=== PATIENT | female | born 1945 | race Caucasian/White ===

== ENCOUNTER 2017-04-22 12:05 | Inpatient (IN) | payer OTHER, MEDICARE ==
[~2017-04-22] VITALS: Ht 172.7 cm; Wt 109.9 kg
[2017-04-22] VITALS (9 sets, daily range): BP systolic 108–140; BP diastolic 52–83; PULSE 92–152; RESP 16–20; TEMP 98.2–98.3; O2SAT 95–100
[2017-04-22] MEDS ORDERED: SODIUM CHLORIDE 0.9% FLUSH 10 ML FLUSH IV FLUSH PRN ×2 (13:45→15:45)
[2017-04-22] MEDS ORDERED: DILTIAZEM HCL 25 MG/5 ML VIAL IV PUSH ONE (13:45)
[2017-04-22 14:00] LABS: AUTOMATED NEUTROPHIL # 7.1 TH/MM3 (1.8-7.7); BASOPHIL % 0.3 % (0.0-2.0); EOSINOPHIL # 0.2 TH/MM3 (0-0.4); EOSINOPHIL % 2.6 % (0.0-4.0); HEMATOCRIT 24.9 % (35.0-46.0); HEMOGLOBIN 8.8 GM/DL (11.6-15.3); LYMPHOCYTE # 1.1 TH/MM3 (1.0-4.8); MEAN CELL VOLUME 101.4 FL (80.0-100.0); MEAN CORPUSCULAR HGB CONC 35.4 % (32.0-36.0); MEAN PLATELET VOLUME 8.7 FL (7.0-11.0); MONO % 8.2 % (0.0-8.0); MONOCYTE # 0.8 TH/MM3 (0-0.9); NEUT % 76.9 % (16.0-70.0); PLATELET COUNT 218 TH/MM3 (150-450); RED BLOOD COUNT 2.46 MIL/MM3 (4.00-5.30); RED CELL DISTRIBUTION WIDTH 17.6 % (11.6-17.2); WHITE BLOOD COUNT 9.3 TH/MM3 (4.0-11.0)
[2017-04-22 14:10] LABS: INTERNATIONAL NORMALIZED RATIO 3.8 RATIO; PROTHROMBIN TIME - PATIENT 38.2 SEC (9.8-11.6)
[2017-04-22] MEDS ORDERED: NITR1SUB3 SL (14:10)
[2017-04-22] MEDS ORDERED: LISI-519 PO (14:10)
[2017-04-22] MEDS ORDERED: METO50TA PO (14:10)
[2017-04-22] MEDS ORDERED: FURO40TA PO (14:10)
[2017-04-22] MEDS ORDERED: ALPR0.5T3 PO (14:10)
[2017-04-22] MEDS ORDERED: DILT120T PO (14:10)
[2017-04-22] MEDS ORDERED: RISP0.5T2 PO (14:10)
[2017-04-22] MEDS ORDERED: JANT2.5T PO (14:10)
[2017-04-22] MEDS ORDERED: SODI1TAB PO (14:10)
[2017-04-22] MEDS ORDERED: BACT800T5 PO (14:10)
[2017-04-22 14:15] LABS: ALBUMIN 2.9 GM/DL (3.4-5.0); ALT (GPT) 27 U/L (10-53); AST (GOT) 48 U/L (15-37); BLOOD UREA NITROGEN 20 MG/DL (7-18); CALCIUM 8.9 MG/DL (8.5-10.1); CHLORIDE 96 MEQ/L (98-107); CREATININE 1.45 MG/DL (0.50-1.00); GLOMERULAR FILTRATION RATE 36 ML/MIN (>89); GLUCOSE,RANDOM 103 MG/DL (74-106); SODIUM (NA) 132 MEQ/L (136-145)
[2017-04-22] MEDS ORDERED: WARF4TAB51 PO (14:18)
[2017-04-22 14:25] LABS: ALKALINE PHOSPHATASE 117 U/L (45-117); TOTAL BILIRUBIN ADULT 0.8 MG/DL (0.2-1.0); TOTAL PROTEIN 7.7 GM/DL (6.4-8.2); TROPONIN I LESS THAN 0.02 NG/ML (0.02-0.05)
--- NOTE | 2017-04-22 14:37 | RADRPT ---
EXAM DATE/TIME: 04/22/2017 14:05 [place] COMPARISON: No previous studies available for comparison. INDICATIONS : Chest pressure. MEDICAL HISTORY : Carcinoma, breast. Arthritis. Hypertension. A-fib. Pneumonia. SURGICAL HISTORY : Tonsillectomy. Tubal ligation. Hysterectomy. Cervical fusion. Bilateral mastectomy. Clavicle fracture . ENCOUNTER: Initial ACUITY: 2 days PAIN SCORE: 3/10 LOCATION: chest FINDINGS: PA and lateral views of the chest demonstrate the lungs to be symmetrically aerated without evidence of mass, infiltrate or effusion. The cardiomediastinal contours are unremarkable. Osseous structure s are intact. CONCLUSION: No acute disease. Selvin Nicole MD on April 22, 2017 at 14:33 Board Certified Radiologist. This report was verified electronically.
[2017-04-22] MEDS ORDERED: DILTIAZEM HCL 50 MG/10 ML VIAL IV PUSH ONE (14:45)
--- NOTE | 2017-04-22 14:59 | PD ---
HPI . Depression Chief Complaint: Medical Clearance Time Seen by Provider: 13:42 Travel History International Travel<30 days: No Contact w/Intl Traveler<30days: No Traveled to known affect area: No History of Present Illness HPI This patient presented with the chief complaint of depression and hallucinations. She reports the onset of her symptoms 8 months ago when her . However, the patient was found to be in AF with RVR at triage. The patient reports a chronic history of atrial fibrillation and is maintained on Coumadin and a beta jamison. She has no idea when her heart rate might have become elevated. She does state that she was in the hospital at [facility] on 04/20-04/21 with AF with RVR. She states that she signed herself out AMA yesterday as the nurses were talking about "cleaning her out" and "making her disappear and that no one would even know about it." Therefore, I am not sure how reliable this patient's history is. I will attempt to obtain her old records from [facility]. The patient reports no weakness or dizziness. She has no crushing chest pain. She has no shortness of breath. PFSH Past Medical History Arthritis: Yes Atrial Fibrillation: Yes Anxiety: Yes Depression: Yes Cancer: Yes (BREAST) Diminished Hearing: No Hypertension: Yes Insomnia: Yes Pneumonia: Yes Tetanus Vaccination: < 5 Years Influenza Vaccination: Yes Tubal Ligation: Yes Past Surgical History Hysterectomy: Yes Oral Surgery: Yes Tonsillectomy: Yes Other Surgery: Yes (BILATERAL MASTECTOMY, L CLAVICLE SX) Social History Alcohol Use: Yes (every other day) Tobacco Use: No Substance Use: No Allergies-Medications (Allergen,Severity, Reaction): Coded Allergies: No Known Allergies (Unverified , 04/22/17) Reported Meds & Prescriptions Reported Meds & Active Scripts Active Reported Warfarin 2 Mg Tab 2 Mg PO DAILY Alprazolam 0.5 Mg Tab 0.5 Mg PO Q8H PRN Metoprolol Tartrate 50 Mg Tab 50 Mg PO BID Furosemide 40 Mg Tab 40 Mg PO DAILY Nitroglycerin SL (Nitroglycerin) 0.4 Mg Subl 0.4 Mg SL DIRECTED PRN ONE TABLET UNDER THE TONGUE NEEDED FOR CHEST PAIN, MAY REPEAT EVERY FIVE MINUTES FOR A TOTAL OF 3 DOSES OR CALL 911 IF NO RELIEF Risperidone 0.5 Mg Tab 0.5 Mg PO Q12HR Emmanueltoven (Warfarin) 2.5 Mg Tab 2.5 Mg PO DAILY Lisinopril 5 Mg Tab 5 Mg PO DAILY Sodium Chloride 1 Gram Tab 1 Gm PO DAILY Bactrim DS (Sulfamethoxazole-Trimethoprim) 800-160 Mg Tab 1 Tab PO BID Diltiazem (Diltiazem HCl) 120 Mg Tab 120 Mg PO HS Review of Systems Except as stated in HPI: all other systems reviewed are Neg General / Constitutional: Positive: Other (fatigue), No: Fever, Chills HENT: No: Lightheadedness Cardiovascular: No: Chest Pain or Discomfort Respiratory: No: Shortness of Breath Gastrointestinal: Positive: Diarrhea (2 loose stools in the last 24 hours), No : Nausea, Vomiting Genitourinary: No: Urgency, Frequency, Dysuria Psychiatric: Positive: Depression Physical Exam Narrative GENERAL: Awake and alert. She does not appear to be in any acute distress. SKIN: warm/dry. Good color and turgor. HEAD: Normocephalic. Atraumatic. EYES: Pupils equal and round. No scleral icterus. No injection or drainage. ENT: No nasal bleeding or discharge. Mucous membranes pink and moist. NECK: Trachea midline. Full range of motion without pain.. CARDIOVASCULAR: AF with RVR. Rate about 140. RESPIRATORY: No accessory muscle use. Clear to auscultation. Breath sounds equal bilaterally. GASTROINTESTINAL: Abdomen soft. Nontender. Bowel sounds present. Nondistended. MUSCULOSKELETAL: No obvious deformities. NEUROLOGICAL: Awake and alert. No obvious cranial nerve deficits. Motor grossly within normal limits. Normal speech. PSYCHIATRIC: Appropriate mood and affect; insight and judgment normal. Data Data Last Documented VS Vital Signs Date Time Temp Pulse Resp B/P (MAP) Pulse Ox O2 Delivery O2 Flow Rate FiO2 04/22/17 15:13 105 111/55 (73) 04/22/17 15:08 20 100 Room Air 04/22/17 12:12 98.2 Orders Orders Electrocardiogram (04/22/17 12:48) Ckmb (Isoenzyme) Profile (04/22/17 12:48) Complete Blood Count With Diff (04/22/17 12:48) Comprehensive Metabolic Panel (04/22/17 12:48) Prothrombin Time / Inr (Pt) (04/22/17 12:48) Act Partial Throm Time (Ptt) (04/22/17 12:48) Troponin I (04/22/17 12:48) Chest, Pa & Lat (04/22/17 12:48) Thyroid Stimulating Hormone (04/22/17 12:48) Psych Screen (04/22/17 12:48) Urinalysis - C+S If Indicated (04/22/17 12:48) Ecg Monitoring (04/22/17 13:42) Blood Pressure (04/22/17 13:42) Iv Access Insert/Monitor (04/22/17 13:42) Oximetry (04/22/17 13:42) Vital Signs (04/22/17 13:42) Diltiazem Inj (Cardizem Inj) (04/22/17 13:45) Sodium Chloride 0.9% Flush (Ns Flush) (04/22/17 13:45) Diltiazem Inj (Cardizem Inj) (04/22/17 14:30) Diltiazem Inj (Cardizem Inj) (04/22/17 14:45) Sodium Chlor 0.9% 1000 Ml Inj (Ns 1000 M (04/22/17 15:00) Admit Order (Ed Use Only) (04/22/17 ) Admit Order (Ed Use Only) (04/22/17 ) Plugger / Telemetry VALENCIA.Q8H (04/22/17 15:31) Vital Signs (Adult) Q4H (04/22/17 15:31) Diet Heart Healthy (04/22/17 Dinner) Activity Oob With Assistance (04/22/17 15:31) Notify Dr: Other (04/22/17 15:31) Labs Laboratory Tests Test 04/22/17 13:13 White Blood Count 9.3 TH/MM3 Red Blood Count 2.46 MIL/MM3 Hemoglobin 8.8 GM/DL Hematocrit 24.9 % Mean Corpuscular Volume 101.4 FL Mean Corpuscular Hemoglobin 36.0 PG Mean Corpuscular Hemoglobin Concent 35.4 % Red Cell Distribution Width 17.6 % Platelet Count 218 TH/MM3 Mean Platelet Volume 8.7 FL Neutrophils (%) (Auto) 76.9 % Lymphocytes (%) (Auto) 12.0 % Monocytes (%) (Auto) 8.2 % Eosinophils (%) (Auto) 2.6 % Basophils (%) (Auto) 0.3 % Neutrophils # (Auto) 7.1 TH/MM3 Lymphocytes # (Auto) 1.1 TH/MM3 Monocytes # (Auto) 0.8 TH/MM3 Eosinophils # (Auto) 0.2 TH/MM3 Basophils # (Auto) 0.0 TH/MM3 CBC Comment DIFF FINAL Differential Comment Prothrombin Time 38.2 SEC Prothromb Time International Ratio 3.8 RATIO Activated Partial Thromboplast Time 49.5 SEC Blood Urea Nitrogen 20 MG/DL Creatinine 1.45 MG/DL Random Glucose 103 MG/DL Total Protein 7.7 GM/DL Albumin 2.9 GM/DL Calcium Level 8.9 MG/DL Alkaline Phosphatase 117 U/L Aspartate Amino Transf (AST/SGOT) 48 U/L Alanine Aminotransferase (ALT/SGPT) 27 U/L Total Bilirubin 0.8 MG/DL Sodium Level 132 MEQ/L Potassium Level 3.7 MEQ/L Chloride Level 96 MEQ/L Carbon Dioxide Level 26.0 MEQ/L Anion Gap 10 MEQ/L Estimat Glomerular Filtration Rate 36 ML/MIN Total Creatine Kinase 55 U/L Troponin I LESS THAN 0.02 NG/ML Thyroid Stimulating Hormone 3rd Gen 4.850 uIU/ML MDM Medical Decision Making Medical Screen Exam Complete: Yes Emergency Medical Condition: Yes Interpretation(s) EKG shows atrial fibrillation with a ventricular response of 144. Differential Diagnosis Differential diagnosis of tachycardia includes but is not limited to PSVT, atrial fibrillation with a rapid ventricular response, sinus tachycardia (due to hypovolemia, anemia, thyrotoxicosis, PE) Narrative Course This patient presents with a chief complaint of depression. However, she was found to be in AF with RVR at triage. The patient was placed on the monitor. IV access was obtained. She was given a Cardizem bolus at 0.25 mg/kg. Heart rate slowed to about 100. However, her heart rate later to about 1:30. A second bolus of Cardizem at 0.35 mg/kg was ordered along with a Cardizem drip. CXR>>: No acute disease. CBC & BMP Diagram 04/22/17 13:13 Total Protein 7.7, Albumin 2.9 L, Calcium Level 8.9, Alkaline Phosphatase 117, Aspartate Amino Transf (AST/SGOT) 48 H, Alanine Aminotransferase (ALT/SGPT) 27, Total Bilirubin 0.8 The patient's previous GFR in January was 60. GFR today is 36. It looks like it is probably all prerenal. She'll be treated with IV fluids. trop < 0.02 BNP 326 This patient needs to be admitted for both IV hydration and for rate control of her AF. Critical Care Narrative Aggregate critical care time was 40 minutes. Time to perform other separately billable procedures was not included in the critical care time. My time did not include minutes spent treating any other patients simultaneously or on activities that did not directly contribute to the patient's treatment. The services I provided to this patient were to treat and/or prevent clinically significant deterioration due to atrial fibrillation with rapid ventricular response I provided critical care services requiring my management, as noted below: Chart data review, documentation time, medication orders and management, vital sign assessments/reviewing monitor data, ordering and reviewing lab tests, ordering and interpreting/reviewing x-rays and diagnostic studies, care of the patient and discussion of the patient with the admitting physicians HemaPrompt Point of Care Internal Pos. & Neg. Controls: Passed Fecal Specimen Occult Blood: Negative Physician Communication Physician Communication Dr. Vickers Diagnosis Primary Impression: Atrial fibrillation with rapid ventricular response Additional Impressions: Acute renal failure Qualified Codes: N17.9 - Acute kidney failure, unspecified Anemia Qualified Codes: D64.9 - Anemia, unspecified Admitting Information Admitting Physician Requests: Admit Condition: Stable Shira Louis MD Apr 22, 2017 14:59
[2017-04-22] MEDS ORDERED: SODIUM CHLOR 0.9% 1000 ML INJ 1,000 ML IV ONE (15:00)
--- NOTE | 2017-04-22 15:41 | HHI.HP ---
[facility] Unknown Admission Diagnosis AF with RVR Diagnoses: Chief Complaint: anxiety and hallucinations Travel History International Travel<30 Days: No Contact w/Intl Traveler <30 Da: No Traveled to Known Affected Are: No History of Present Illness This is a 71-year-old female, , lives by herself, with past medical history significant for anxiety disorder, hypertension and atrial fibrillation being admitted for anxiety and hallucinations found to be in atrial fibrillation. Patient initially presented at [facility] 2 days ago, she left AGAINST MEDICAL ADVICE yesterday because of hallucinations and paranoia that the staff wanted to harm her. This morning, when she woke up, she was not feeling well, i.e. she feels very anxious and having hallucinations about a TV program happening in real life hence she decided to come to the hospital. She denies any fever, chills, dysuria, frequency, urgency nausea, vomiting, diarrhea, abdominal pain, chest pain, palpitations or shortness of breath. She further denies any bleeding, hematochezia, or melena. Her last colonoscopy was 3 years ago and was allegedly normal. She denies having chronic kidney disease. Review of Systems Except as stated in HPI: all other systems reviewed are Neg Past Family Social History Past Medical History Atrial fibrillation Gen. anxiety disorder Hypertension UTI-3 weeks ago Past Surgical History Hysterectomy LUmpectomy Radical Mastectomy Disc surgery L shoulder surgery Reported Medications Warfarin 2 Mg Tab 2 Mg PO DAILY Alprazolam 0.5 Mg Tab 0.5 Mg PO Q8H PRN Metoprolol Tartrate 50 Mg Tab 50 Mg PO BID Furosemide 40 Mg Tab 40 Mg PO DAILY Nitroglycerin SL (Nitroglycerin) 0.4 Mg Subl 0.4 Mg SL DIRECTED PRN ONE TABLET UNDER THE TONGUE NEEDED FOR CHEST PAIN, MAY REPEAT EVERY FIVE MINUTES FOR A TOTAL OF 3 DOSES OR CALL 911 IF NO RELIEF Risperidone 0.5 Mg Tab 0.5 Mg PO Q12HR Jantoven (Warfarin) 2.5 Mg Tab 2.5 Mg PO DAILY Lisinopril 5 Mg Tab 5 Mg PO DAILY Sodium Chloride 1 Gram Tab 1 Gm PO DAILY Bactrim DS (Sulfamethoxazole-Trimethoprim) 800-160 Mg Tab 1 Tab PO BID Diltiazem (Diltiazem HCl) 120 Mg Tab 120 Mg PO HS Allergies: Coded Allergies: No Known Allergies (Unverified , 04/22/17) Family History Both grandparents, dad, brother have heart problems and DM Social History Drinks occasionally, 4 beers every 3-6 days. Non-smoker. Physical Exam Vital Signs Vital Signs Date Time Temp Pulse Resp B/P (MAP) Pulse Ox O2 Delivery O2 Flow Rate FiO2 04/22/17 15:13 105 111/55 (73) 04/22/17 15:08 122 20 112/61 (78) 100 Room Air 04/22/17 13:54 103 19 123/78 (93) 98 Room Air 04/22/17 13:47 156 04/22/17 13:47 100 Room Air 04/22/17 13:47 145 140/83 (102) 04/22/17 13:40 152 18 140/83 (102) 100 Room Air 04/22/17 12:12 98.2 121 18 108/52 (70) 95 Physical Exam GENERAL: Not in acute distress, well-nourished. HEAD: Atraumatic. Normocephalic. No temporal or scalp tenderness. EYES: PERRL, full EOMs, no jaundice, nonicteric, pink conjunctivae without injection, moist mucosa NECK: Trachea midline, no mass, no obvious thyromegaly. No JVD or lymphadenopathy. CARDIOVASCULAR: Tachycardic, irregular rhythm, no murmurs appreciated, no gallops, or rubs. RESPIRATORY: Clear to auscultation with normal respiratory effort. Breath sounds equal bilaterally. No use of accessory muscles of respiration. GASTROINTESTINAL: Abdomen soft, normal bowel sounds, non-tender, nondistended. No hepato-splenomegaly or palpable mass. No guarding. DARIEL and exam deferred. MUSCULOSKELETAL: Extremities without clubbing, cyanosis, 1+ bilateral, pitting edema, no joint tendernes. No calf tenderness. Distal pulses intact, 2+ bilaterally. INTEGUMENTARY: Warm and dry, no rash of generalized distribution. NEUROLOGICAL: Awake, alert, oriented 3. No obvious cranial nerve deficits. Moves all 4 extremities, muscle strength testing 5 over 5. Motor and sensory grossly within normal limits. .Supple neck, no meningeal signs. Grossly negative cerebellar examination. No focal neurologic deficits. PSYCHIATRIC: Normal mood, appropriate affect. Feels anxious, presently no hallucinations. Laboratory Laboratory Tests Test 04/22/17 13:13 White Blood Count 9.3 Red Blood Count 2.46 Hemoglobin 8.8 Hematocrit 24.9 Mean Corpuscular Volume 101.4 Mean Corpuscular Hemoglobin 36.0 Mean Corpuscular Hemoglobin Concent 35.4 Red Cell Distribution Width 17.6 Platelet Count 218 Mean Platelet Volume 8.7 Neutrophils (%) (Auto) 76.9 Lymphocytes (%) (Auto) 12.0 Monocytes (%) (Auto) 8.2 Eosinophils (%) (Auto) 2.6 Basophils (%) (Auto) 0.3 Neutrophils # (Auto) 7.1 Lymphocytes # (Auto) 1.1 Monocytes # (Auto) 0.8 Eosinophils # (Auto) 0.2 Basophils # (Auto) 0.0 CBC Comment DIFF FINAL Differential Comment Prothrombin Time 38.2 Prothromb Time International Ratio 3.8 Activated Partial Thromboplast Time 49.5 Blood Urea Nitrogen 20 Creatinine 1.45 Random Glucose 103 Total Protein 7.7 Albumin 2.9 Calcium Level 8.9 Alkaline Phosphatase 117 Aspartate Amino Transf (AST/SGOT) 48 Alanine Aminotransferase (ALT/SGPT) 27 Total Bilirubin 0.8 Sodium Level 132 Potassium Level 3.7 Chloride Level 96 Carbon Dioxide Level 26.0 Anion Gap 10 Estimat Glomerular Filtration Rate 36 Total Creatine Kinase 55 Troponin I LESS THAN 0.02 Thyroid Stimulating Hormone 3rd Gen 4.850 Result Diagram: 04/22/17 1313 04/22/17 1313 Imaging Last Impressions Chest X-Ray 04/22/17 1248 Signed Impressions: Service Date/Time: Saturday, April 22, 2017 14:05 - CONCLUSION: No acute disease. Selvin Nicole MD [place] VTE Risk Assessment Caprini VTE Risk Assessment: Mod/High Risk (score >= 2) VTE Pharm Contraindication: Coagulopathy,INR elevated Caprini Risk Assessment Model Point Value = 1 Point Value = 2 Point Value = 3 Point Value = 5 Age 41-60 Minor surgery BMI > 25 kg/m2 Swollen legs Varicose veins or History of unexplained or recurrent spontaneous Oral contraceptives or hormone replacement Sepsis (< 1 month) Serious lung disease, including pneumonia (< 1 month) Abnormal pulmonary function Acute myocardial infarction Congestive heart failure (< 1 month) History of inflammatory bowel disease Medical patient at bed rest Age 61-74 Arthroscopic surgery Major open surgery (> 45 min) Laparoscopic surgery (> 45 min) Malignancy Confined to bed (> 72 hours) Immobilizing plaster cast Central venous access Age >= 75 History of VTE Family history of VTE Factor V Leiden Prothrombin [id number] Lupus anticoagulant Anticardiolipin antibodies Elevated serum homocysteine Heparin-induced thrombocytopenia Other congenital or acquired thrombophilia Stroke (< 1 month) Elective arthroplasty Hip, pelvis, or leg fracture Acute spinal cord injury (< 1 month) Prophylaxis Regimen Total Risk Factor Score Risk Level Prophylaxis Regimen 0-1 Low Early ambulation 2 Moderate Order ONE of the following: *Sequential Compression Device (SCD) *Heparin 5000 units SQ BID 3-4 Higher Order ONE of the following medications: *Heparin 5000 units SQ TID *Enoxaparin/Lovenox 40 mg SQ daily (WT < 150 kg, CrCl > 30 mL/min) *Enoxaparin/Lovenox 30 mg SQ daily (WT < 150 kg, CrCl > 10-29 mL/min) *Enoxaparin/Lovenox 30 mg SQ BID (WT < 150 kg, CrCl > 30 mL/min) AND/OR *Sequential Compression Device (SCD) 5 or more Highest Order ONE of the following medications: *Heparin 5000 units SQ TID (Preferred with Epidurals) *Enoxaparin/Lovenox 40 mg SQ daily (WT < 150 kg, CrCl > 30 mL/min) *Enoxaparin/Lovenox 30 mg SQ daily (WT < 150 kg, CrCl > 10-29 mL/min) *Enoxaparin/Lovenox 30 mg SQ BID (WT < 150 kg, CrCl > 30 mL/min) AND *Sequential Compression Device (SCD) Assessment and Plan Problem List: (1) Atrial fibrillation with rapid ventricular response ICD Code: I48.91 - Unspecified atrial fibrillation Status: Acute (2) Anemia ICD Code: D64.9 - Anemia, unspecified Status: Acute (3) Acute renal failure ICD Code: N17.9 - Acute kidney failure, unspecified Status: Acute Assessment and Plan This is a 71-year-old female with history of atrial fibrillation presenting with anxiety/hallucinations, found to be in atrial fibrillation with RVR Atrial fibrillation with RVR-after 2 boluses of Cardizem IV, no response, start Cardizem drip. Restart metoprolol and Cardizem per home dose. Hold Coumadin for now given INR. Possible etiology may be dehydration versus anemia. TSH is elevated, check free T3 and free T4. Patient not in heart failure. Continue serial troponins and EKG. Hypertension-controlled, restart metoprolol and Cardizem, hold lisinopril for now given elevated creatinine Acute renal failure-could be prerenal, previous GFR 60 in January 2017, presently in the 30s. Received 1 L of fluids, we'll continue 1 more liter. Recheck BMP tomorrow. Check urinalysis. Hold Lasix and lisinopril Hallucinations-was allegedly told she has UTI in the past 3 weeks, presently no urinary symptoms, check urinalysis. No antibiotics for now, no leukocytosis. Continue her risperidone and Xanax for now. Anemia-hemoglobin is 10 in January 2017, last colonoscopy was 3 years ago, recheck CBC, if with significant drop, may need transfusion. Consult GI if with further drop. Otherwise if hemoglobin remains stable, workup can be done as outpatient if with time the outpatient follow-up. Per patient, she has advanced directives, DNR/DNI Per patient, she lives by herself, ambulatory. No anticipated needs for discharge for now Code Status DNR/DNI Physician Certification 2 Midnight Certification Type: Admission for Inpatient Services Order for Inpatient Services The services are ordered in accordance with Medicare regulations or non- Medicare payer requirements, as applicable. In the case of services not specified as inpatient-only, they are appropriately provided as inpatient services in accordance with the 2-midnight benchmark. Estimated LOS (days): 2 days is the estimated time the patient will need to remain in the hospital, assuming treatment plan goals are met and no additional complications. Post-Hospital Plan: Home Problem Qualifiers (1) Anemia: Qualified Codes: D64.9 - Anemia, unspecified (2) Acute renal failure: Qualified Codes: N17.9 - Acute kidney failure, unspecified Shelia Vickers MD Apr 22, 2017 15:41
[2017-04-22] MEDS ORDERED: ACETAMINOPHEN 325 MG TAB PO PRN (15:45)
[2017-04-22] MEDS ORDERED: SENNOSIDES 8.6 MG TAB PO PRN (15:45)
[2017-04-22] MEDS ORDERED: LACTULOSE SYRUP 20 GM/30 ML CUP PO PRN (15:45)
[2017-04-22] MEDS ORDERED: BISACODYL 10 MG SUPP RECTAL PRN (15:45)
[2017-04-22] MEDS ORDERED: NALOXONE HCL 0.4 MG/ML AMP IV PUSH PRN (15:45)
[2017-04-22] MEDS ORDERED: MAGNESIUM HYDROXIDE SUSP 30 ML CUP PO PRN (15:45)
[2017-04-22] MEDS ORDERED: NITROGLYCERIN 0.4 MG SL 25 TABS/BTL SL PRN (16:00)
[2017-04-22] MEDS: DILTIAZEM INJ 125 MG in SODIUM CHLORIDE 0.9% INJ 100 ML IV PRN (16:08)
--- NOTE | 2017-04-22 16:09 | EKG ---
Date Performed: 04/22/2017 Time Performed: 13:22:59 PTAGE: 71 years EKG: ATRIAL FIBRILLATION WITH RAPID VENTRICULAR RESPONSE NONSPECIFIC ST & T-WAVE ABNORMALITY ABN ORMAL RHYTHM ECG PREVIOUS TRACING : 10/11/1996 13.40 Compared to the previous tracing SR no longer present DOCTOR: Rosalba Saenz Interpretating Date/Time 04/22/2017 16:07:22
[2017-04-22] MEDS: METOPROLOL TARTRATE 50 MG TAB PO SCH (17:15)
[2017-04-22] MEDS: SODIUM CHLOR 0.45% 1000 ML INJ 1,000 ML IV SCH (17:15)
[2017-04-22] MEDS: SODIUM CHLORIDE 0.9% FLUSH 10 ML FLUSH IV FLUSH SCH (21:00)
[2017-04-22] MEDS ORDERED: NON-FORMULARY DRUG (Diltiazem 120 MG) PO SCH (21:00)
[2017-04-22] MEDS ORDERED: METOPROLOL TARTRATE 50 MG TAB PO SCH (21:00)
[2017-04-22] MEDS: DOCUSATE SODIUM 50 MG/SENNA 8.6 MG TAB PO SCH (21:00)
[2017-04-22] MEDS: risperiDONE 0.5 MG TAB PO SCH (21:26)
[2017-04-22] MEDS: ALPRAZolam 0.5 MG TAB PO PRN (21:34)
[2017-04-22] MEDS: LACTIC ACID (AMMONIUM LACTATE) 12% LOTION 225 GM BTL TOPICAL SCH (22:02)
[2017-04-22] MEDS: DILTIAZEM-CD 120 MG CAP ER PO SCH (22:06)
[2017-04-22 23:31] LABS: MAGNESIUM 1.5 MG/DL (1.5-2.5)
[2017-04-22 23:40] LABS: FREE T3 1.56 PG/ML (2.18-3.98); FREE T4 1.12 NG/DL (0.76-1.46); TROPONIN I LESS THAN 0.02 NG/ML (0.02-0.05)
[2017-04-23] VITALS (11 sets, daily range): BP systolic 112–126; BP diastolic 56–74; PULSE 88–118; RESP 16–20; TEMP 97.2–98.2; O2SAT 94–100
[2017-04-23 00:30] LABS: BACTERIA, URINE RARE /hpf; BILIRUBIN, URINE NEG (NEG); BLOOD, URINE SMALL (NEG); GLUCOSE,URINE NEG (NEG); KETONE, URINE NEG (NEG); NITRITE,URINE NEG (NEG); PH, URINE 5.5 (5.0-8.5); RENAL EPITHELIAL CELLS 1 /hpf; SQUAMOUS EPITHELIAL CELL URINE <1 /hpf (0-5); URINE COLOR YELLOW (YELLW/STRAW); URINE LEUKOCYTE ESTERASE LARGE (NEG); WHITE BLOOD CELL CLUMPS MANY
[2017-04-23] MEDS: DILTIAZEM INJ 125 MG in SODIUM CHLORIDE 0.9% INJ 100 ML IV PRN ×2 (04:43→16:27)
[2017-04-23] MEDS: risperiDONE 0.5 MG TAB PO SCH ×2 (08:58→20:25)
[2017-04-23] MEDS: SODIUM CHLORIDE 0.9% FLUSH 10 ML FLUSH IV FLUSH SCH ×2 (08:58→20:25)
[2017-04-23] MEDS: METOPROLOL TARTRATE 50 MG TAB PO SCH ×2 (08:58→20:25)
[2017-04-23] MEDS: DOCUSATE SODIUM 50 MG/SENNA 8.6 MG TAB PO SCH ×2 (08:58→20:27)
[2017-04-23] MEDS: SODIUM CHLORIDE 1 GRAM TAB PO SCH (08:58)
[2017-04-23] MEDS: LACTIC ACID (AMMONIUM LACTATE) 12% LOTION 225 GM BTL TOPICAL SCH ×2 (08:59→20:26)
[2017-04-23] MEDS: SODIUM CHLOR 0.45% 1000 ML INJ 1,000 ML IV SCH ×2 (08:59→20:26)
[2017-04-23 10:22] LABS: INTERNATIONAL NORMALIZED RATIO 2.5 RATIO; PROTHROMBIN TIME - PATIENT 25.4 SEC (9.8-11.6)
[2017-04-23 10:27] LABS: AUTOMATED NEUTROPHIL # 6.1 TH/MM3 (1.8-7.7); BASOPHIL % 0.3 % (0.0-2.0); EOSINOPHIL # 0.1 TH/MM3 (0-0.4); EOSINOPHIL % 0.9 % (0.0-4.0); HEMATOCRIT 21.4 % (35.0-46.0); HEMOGLOBIN 7.5 GM/DL (11.6-15.3); LYMPH % 10.4 % (9.0-44.0); LYMPHOCYTE # 0.8 TH/MM3 (1.0-4.8); MEAN CELL VOLUME 103.3 FL (80.0-100.0); MEAN CORPUSCULAR HEMOGLOBIN 36.1 PG (27.0-34.0); MEAN CORPUSCULAR HGB CONC 34.9 % (32.0-36.0); MEAN PLATELET VOLUME 8.6 FL (7.0-11.0); MONO % 9.3 % (0.0-8.0); MONOCYTE # 0.7 TH/MM3 (0-0.9); NEUT % 79.1 % (16.0-70.0); PLATELET COUNT 162 TH/MM3 (150-450); RED BLOOD COUNT 2.07 MIL/MM3 (4.00-5.30); RED CELL DISTRIBUTION WIDTH 17.8 % (11.6-17.2); WHITE BLOOD COUNT 7.7 TH/MM3 (4.0-11.0)
[2017-04-23 10:41] LABS: BICARBONATE 23.1 MEQ/L (21.0-32.0); BLOOD UREA NITROGEN 18 MG/DL (7-18); CALCIUM 8.3 MG/DL (8.5-10.1); CHLORIDE 101 MEQ/L (98-107); CREATININE 0.98 MG/DL (0.50-1.00); GLOMERULAR FILTRATION RATE 56 ML/MIN (>89); GLUCOSE,RANDOM 120 MG/DL (74-106); SODIUM (NA) 135 MEQ/L (136-145)
[2017-04-23 10:45] LABS: TROPONIN I LESS THAN 0.02 NG/ML (0.02-0.05)
[2017-04-23 12:23] LABS: IRON (FE) 68 MCG/DL (50-170)
[2017-04-23 12:48] LABS: % SATURATION IRON PROFILE 40.1 % (20-50); FERRITIN 555 NG/ML (8-252); FOLATE 5.9 NG/ML (3.1-17.5); TOTAL IRON BINDING CAPACITY 169 MCG/DL (250-450)
[2017-04-23] MEDS ORDERED: ACETAMINOPHEN 325 MG TAB PO PRN (15:30)
[2017-04-23] MEDS ORDERED: FUROSEMIDE 20 MG/2 ML VIAL IV PUSH ONE (15:30)
[2017-04-23] MEDS ORDERED: SODIUM CHLOR 0.9% 250 ML INJ 250 ML IV ONE (15:30)
[2017-04-23] MEDS ORDERED: diphenhydrAMINE HCL 25 MG CAP PO PRN (15:30)
--- NOTE | 2017-04-23 16:03 | PD.CONS ---
HPI History of Present Illness This is a 71 year old lady with AF on coumadin who presented with hallucinations and was found to be in AF. She says she felt like her heart was beating really fast. Per EMR she originally was admitted to [facility] 2 d ago and left AMA. GI has been consulted for anemia. She has been feeling weak for at least a month. SHe admitted intermittent dark stools to the attending but denied to me. She did admit scant bright red blood on wipe after straining with a BM. She had a colonoscopy 8 y ago [facility] and says benign polyps were found. Never had EGD. Denies prior hx GIB. (Sihra Cruz) PFSH Past Medical History Atrial fibrillation Gen. anxiety disorder Hypertension UTI-3 weeks ago Past Surgical History Hysterectomy LUmpectomy Radical Mastectomy Disc surgery L shoulder surgery (Shira Cruz) Coded Allergies: No Known Allergies (Unverified , 04/22/17) Family History Both grandparents, dad, brother have heart problems and DM Social History Drinks occasionally, 4 beers or brandies every 3-6 days. Non-smoker. (Shira Cruz) Review of Systems Constitutional: COMPLAINS OF: Fatigue Endocrine: DENIES: Polydipsia Eyes: DENIES: Blurred vision Ears, nose, mouth, throat: DENIES: Hearing loss Respiratory: DENIES: Cough Cardiovascular: DENIES: Chest pain Gastrointestinal: DENIES: Abdominal pain, Black stools, Bloody stools, Constipation, Diarrhea, Nausea, Vomiting, Hematemesis Genitourinary: DENIES: Hematuria Musculoskeletal: DENIES: Joint Swelling Integumentary: DENIES: Abnormal pigmentation Hematologic/lymphatic: COMPLAINS OF: Bruising Immunologic/allergic: DENIES: Eczema Neurologic: DENIES: Abnormal gait Psychiatric: COMPLAINS OF: Confusion (Shira Cruz) GI Exam Vitals I&O Vital Signs Date Time Temp Pulse Resp B/P (MAP) Pulse Ox O2 Delivery O2 Flow Rate FiO2 04/23/17 12:00 97.9 92 19 112/57 (75) 96 04/23/17 08:00 97.7 105 19 116/65 (82) 98 04/23/17 08:00 115 04/23/17 04:44 98.1 106 20 114/64 (81) 96 04/23/17 04:43 106 114/64 04/23/17 04:00 112 04/23/17 00:00 98.2 108 18 121/74 (90) 97 04/23/17 00:00 118 04/22/17 20:00 92 04/22/17 20:00 98.3 100 16 110/59 (76) 100 04/22/17 18:46 04/22/17 17:45 115 18 138/66 (90) 100 Room Air 04/22/17 17:05 127 20 111/62 (78) 100 Room Air 04/22/17 16:08 145 120/58 I/O 04/22/17 04/22/17 04/22/17 04/23/17 04/23/17 04/23/17 07:00 15:00 23:00 07:00 15:00 23:00 Intake Total 1000 ml 125 ml Output Total 1050 ml Balance 1000 ml -925 ml Intake IV Total 1000 ml 125 ml Output Urine Total 1050 ml Imaging Last Impressions Chest X-Ray 04/22/17 1248 Signed Impressions: Service Date/Time: Saturday, April 22, 2017 14:05 - CONCLUSION: No acute disease. Selvin Nicole MD Laboratory Test 04/22/17 17:46 04/22/17 23:01 04/23/17 00:15 04/23/17 08:26 Troponin I LESS THAN 0.02 NG/ML LESS THAN 0.02 NG/ML LESS THAN 0.02 NG/ML Magnesium Level 1.5 MG/DL Free Thyroxine 1.12 NG/DL Free Triiodothyronine (T3) pg/dL 1.56 PG/ML Urine Color YELLOW Urine Turbidity CLOUDY Urine pH 5.5 Urine Specific [place] 1.015 Urine Protein 30 mg/dL Urine Glucose (UA) NEG mg/dL Urine Ketones NEG mg/dL Urine Occult Blood SMALL Urine Nitrite NEG Urine Bilirubin NEG Urine Urobilinogen LESS THAN 2.0 MG/DL Urine Leukocyte Esterase LARGE Urine RBC 6 /hpf Urine WBC /hpf Urine WBC Clumps MANY Urine Squamous Epithelial Cells <1 /hpf Urine Renal Epithelial Cells 1 /hpf Urine Bacteria RARE /hpf Microscopic Urinalysis Comment CULTURE INDICATED White Blood Count 7.7 TH/MM3 Red Blood Count 2.07 MIL/MM3 Hemoglobin 7.5 GM/DL Hematocrit 21.4 % Mean Corpuscular Volume 103.3 FL Mean Corpuscular Hemoglobin 36.1 PG Mean Corpuscular Hemoglobin Concent 34.9 % Red Cell Distribution Width 17.8 % Platelet Count 162 TH/MM3 Mean Platelet Volume 8.6 FL Neutrophils (%) (Auto) 79.1 % Lymphocytes (%) (Auto) 10.4 % Monocytes (%) (Auto) 9.3 % Eosinophils (%) (Auto) 0.9 % Basophils (%) (Auto) 0.3 % Neutrophils # (Auto) 6.1 TH/MM3 Lymphocytes # (Auto) 0.8 TH/MM3 Monocytes # (Auto) 0.7 TH/MM3 Eosinophils # (Auto) 0.1 TH/MM3 Basophils # (Auto) 0.0 TH/MM3 CBC Comment DIFF FINAL Differential Comment Prothrombin Time 25.4 SEC Prothromb Time International Ratio 2.5 RATIO Blood Urea Nitrogen 18 MG/DL Creatinine 0.98 MG/DL Random Glucose 120 MG/DL Calcium Level 8.3 MG/DL Sodium Level 135 MEQ/L Potassium Level 3.7 MEQ/L Chloride Level 101 MEQ/L Carbon Dioxide Level 23.1 MEQ/L Anion Gap 11 MEQ/L Estimat Glomerular Filtration Rate 56 ML/MIN Iron Level 68 MCG/DL Total Iron Binding Capacity 169 MCG/DL Percent Iron Saturation 40.1 % Ferritin 555 NG/ML Vitamin B12 Level 396 PG/ML Folate 5.9 NG/ML Date/Time Source Procedure Growth Status 04/23/17 00:15 Urine Clean Catch Urine Culture Pending Received Physical Examination HEENT: PERRL; normocephalic; atraumatic; no jaundice. CHEST: coarse CARDIAC: irr HR ABDOMEN: Soft, nondistended, nontender; no hepatosplenomegaly; bowel sounds are present in all four quadrants. EXTREMITIES: No clubbing, cyanosis, or edema. SKIN: Normal; no rash; no jaundice. 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 8.8 on presentation, dropped to 7.5. on 01/2017 her hgb was 10.5 last colonoscopy 8 y ago, benign polyps found. Never had EGD. on coumadin for AF - ARF, AF, hallucinations per primary PLAN - EGD and colonoscopy friday - clear liquids - obtain consent - NPO after MN night - hold coumadin - d/w primary - monitor HH - transfuse if needed - further recs to follow depending on results above This pt seen by myself and DR Pabon and this note is written on her behalf (Shira Cruz) Physician Comments seen, examined agree with above consider hematology consult abdominal us transfuse prn (Alaina Pabon MD) Shira Cruz Apr 23, 2017 16:03 Alaina Pabon MD Apr 23, 2017 18:53
--- NOTE | 2017-04-23 19:44 | HHI.PR ---
Subjective Remarks Deferred entry - patient seen at 1500 hrs. Patient states has had dark stools on and off for some time. Denies current melena or hematochezia. Denies abdominal pain nausea or vomiting. Objective Vitals Vital Signs Date Time Temp Pulse Resp B/P (MAP) Pulse Ox O2 Delivery O2 Flow Rate FiO2 04/23/17 16:27 106 112/57 04/23/17 16:00 97.7 90 18 116/58 (77) 98 04/23/17 16:00 99 04/23/17 12:00 102 04/23/17 12:00 97.9 92 19 112/57 (75) 96 04/23/17 08:00 97.7 105 19 116/65 (82) 98 04/23/17 08:00 115 04/23/17 04:44 98.1 106 20 114/64 (81) 96 04/23/17 04:43 106 114/64 04/23/17 04:00 112 04/23/17 00:00 98.2 108 18 121/74 (90) 97 04/23/17 00:00 118 04/22/17 20:00 92 04/22/17 20:00 98.3 100 16 110/59 (76) 100 I/O 04/22/17 04/22/17 04/22/17 04/23/17 04/23/17 04/23/17 07:00 15:00 23:00 07:00 15:00 23:00 Intake Total 1000 ml 125 ml 380 ml Output Total 1050 ml 1000 ml Balance 1000 ml -925 ml -620 ml Intake Oral 380 ml IV Total 1000 ml 125 ml Output Urine Total 1050 ml 1000 ml # Bowel Movements 1 Result Diagram: 04/23/17 0826 04/23/17 0826 Imaging Last Impressions Chest X-Ray 04/22/17 1248 Signed Impressions: Service Date/Time: Saturday, April 22, 2017 14:05 - CONCLUSION: No acute disease. Selvin Nicole MD Objective Remarks AAOx3, NAD Pale conjunctiva and skin Clear Lungs BL S1S2 tachycardic - irregularly irregular. Abdomen soft, nt, nd no edema in lower extremities A/P Problem List: (1) Atrial fibrillation with rapid ventricular response ICD Code: I48.91 - Unspecified atrial fibrillation Status: Acute (2) Anemia ICD Code: D64.9 - Anemia, unspecified Status: Acute (3) Acute renal failure ICD Code: N17.9 - Acute kidney failure, unspecified Status: Acute Assessment and Plan This is a 71-year-old female with history of atrial fibrillation presenting with anxiety/hallucinations, found to be in atrial fibrillation with RVR Atrial fibrillation with RVR-after 2 boluses of Cardizem IV, no response, start Cardizem drip. Restart metoprolol and Cardizem per home dose. Hold Coumadin for now given INR. Possible etiology may be dehydration versus anemia. TSH is elevated, check free T3 and free T4. Patient not in heart failure. Continue serial troponins and EKG. 04/23 TSH elevated but Free t4 normal, likely euthyroid sick syndrome. Troponins negative x5. Hold Coumadin for now given hemoglobin drop. Continue metoprolol and Cardizem. Will increase Cardizem dose to 240 mg. Will give an extra dose of 120 since patient still on Cardizem gtt. Hypertension-controlled, restart metoprolol and Cardizem, hold lisinopril for now given elevated creatinine Acute renal failure-could be prerenal, previous GFR 60 in January 2017, presently in the 30s. Received 1 L of fluids, we'll continue 1 more liter. Recheck BMP tomorrow. Check urinalysis. Hold Lasix and lisinopril 04/23 SARAI resolved after IVF administration. Hallucinations-was allegedly told she has UTI in the past 3 weeks, presently no urinary symptoms, check urinalysis. No antibiotics for now, no leukocytosis. Continue her risperidone and Xanax for now. Anemia-hemoglobin is 10 in January 2017, last colonoscopy was 3 years ago, recheck CBC, if with significant drop, may need transfusion. Consult GI if with further drop. Otherwise if hemoglobin remains stable, workup can be done as outpatient if with time the outpatient follow-up. 04/23 hemoglobin trending down and 7.5 today. GI consulted - transfuse 2 units of PRBC. Case discussed with Dr Pabon - possible EGD/colonoscopy friday since INR 2.5 today. Hold Coumadin and continue to monitor PT/INR. Per patient, she has advanced directives, DNR/DNI Per patient, she lives by herself, ambulatory. No anticipated needs for discharge for now UTI: UA (+), urine culture pending. Start IV Rocephin. Discharge Planning Pending EGD/colonoscopy. Problem Qualifiers (1) Anemia: Qualified Codes: D64.9 - Anemia, unspecified (2) Acute renal failure: Qualified Codes: N17.9 - Acute kidney failure, unspecified Lee Cabrera MD Apr 23, 2017 19:44
[2017-04-23] MEDS: DILTIAZEM-CD 120 MG CAP ER PO SCH (20:24)
[2017-04-23] MEDS: ALPRAZolam 0.5 MG TAB PO PRN (20:33)
--- NOTE | 2017-04-23 21:58 | EKG ---
Date Performed: 04/22/2017 Time Performed: 17:23:13 PTAGE: 71 years EKG: ATRIAL FIBRILLATION WITH RAPID VENTRICULAR RESPONSE WITH ABERRANT CONDUCTION OR VENTRICULAR PREMATURE COMPLEXES NONSPECIFIC ST & T-WAVE ABNORMALITY ABNORMAL RHYTHM ECG Compared to the PREVIOUS TRACING rate slower DOCTOR: Rosalba Saenz Interpretating Date/Time 04/23/2017 21:57:04
[2017-04-24] VITALS (10 sets, daily range): BP systolic 102–128; BP diastolic 56–77; PULSE 76–101; RESP 16–21; TEMP 97.4–98.7; O2SAT 93–98
[2017-04-24] MEDS ORDERED: LORazepam 2 MG/ML VIAL IV PUSH PRN (01:15)
[2017-04-24] MEDS ORDERED: DILTIAZEM-CD 120 MG CAP ER PO ONE (01:45)
[2017-04-24] MEDS ORDERED: cefTRIAXone INJ 2,000 MG in SODIUM CHLORIDE 0.9% INJ 100 ML IV SCH (02:00)
[2017-04-24] MEDS: DILTIAZEM INJ 125 MG in SODIUM CHLORIDE 0.9% INJ 100 ML IV PRN (05:21)
[2017-04-24] MEDS: SODIUM CHLORIDE 0.9% FLUSH 10 ML FLUSH IV FLUSH SCH ×2 (09:00→21:06)
--- NOTE | 2017-04-24 09:10 | RADRPT ---
EXAM DATE/TIME: 04/24/2017 07:52 [place] COMPARISON: No previous studies available for comparison. INDICATIONS : Anemia. MEDICAL HISTORY : Arthritis. Carcinoma, breast. Afib. Confusion. HTN. Pneuomonia. UTI. Heartburn. Anemia. Insomia. De pression. Anxiety. SURGICAL HISTORY : Tonsillectomy. Hysterectomy. Tubal ligation. Clavicle resection. Orthopedic surgery, C6-C7. Blood tra nsfusions. Bilateral mastectomy. ENCOUNTER: Initial ACUITY: 2 days PAIN SCORE: 0/10 LOCATION: Abdomen. MEASUREMENTS: LIVER: 19.3 cm length COMMON DUCT: 3 mm RIGHT KIDNEY: 12.6 x 5.4 x 4.7 cm LEFT KIDNEY: 12.1 x 4.8 x 5.7 cm SPLEEN: 12.7 cm length AORTA: 2.3cm maximal FINDINGS: LIVER: Liver is enlarged and demonstrates mildly increased coarse echogenicity. There is no focal mass or du ctal dilatation. COMMON DUCT: No intraluminal mass or stone visualized. GALLBLADDER: Normal in size and shape. There is gallbladder wall thickening measuring up to approximately 7 mm wit h a small amount of pericholecystic fluid. There is a single small echogenic foci in the fundal regio n there are present a small polyp. The there was a negative sonographic Bazan's sign. PANCREAS: The visualized portions are within normal limits. RIGHT KIDNEY: No hydronephrosis, stone or mass. LEFT KIDNEY: No hydronephrosis, stone or mass. SPLEEN: The spleen is at the upper limits of normal in size. AORTA: Non aneurysmal. IVC: Within normal limits. Small bilateral pleural effusion are noted. CONCLUSION: 1. The liver is enlarged with increased echogenicity and coarse echotexture. There is no focal mass o r ascites. Findings are nonspecific and could indicate hepatocellular disease. 2. The spleen is at the upper limits of normal in size. 3. Abnormal gallbladder with wall thickening and small amount pericholecystic fluid. There is a singl e small echogenic foci which did not move or shadow and may represent a small polyp. There is no evid ence of biliary obstruction. There was a negative sonographic Bazan's sign. 4. Small bilateral pleural effusions. Gigi Montoya MD on April 24, 2017 at 9:04 Board Certified Radiologist. This report was verified electronically.
[2017-04-24] MEDS: SODIUM CHLORIDE 1 GRAM TAB PO SCH (09:45)
[2017-04-24] MEDS: METOPROLOL TARTRATE 50 MG TAB PO SCH ×2 (09:45→21:06)
[2017-04-24] MEDS: LACTIC ACID (AMMONIUM LACTATE) 12% LOTION 225 GM BTL TOPICAL SCH ×2 (09:45→21:06)
[2017-04-24] MEDS: risperiDONE 0.5 MG TAB PO SCH ×2 (09:45→21:10)
[2017-04-24] MEDS: DOCUSATE SODIUM 50 MG/SENNA 8.6 MG TAB PO SCH ×2 (09:45→21:00)
[2017-04-24 11:39] LABS: INTERNATIONAL NORMALIZED RATIO 1.8 RATIO; PROTHROMBIN TIME - PATIENT 17.8 SEC (9.8-11.6)
[2017-04-24 13:44] LABS: HEMATOCRIT 26.3 % (35.0-46.0); HEMOGLOBIN 9.5 GM/DL (11.6-15.3); MEAN CELL VOLUME 98.2 FL (80.0-100.0); MEAN CORPUSCULAR HEMOGLOBIN 35.4 PG (27.0-34.0); MEAN PLATELET VOLUME 8.8 FL (7.0-11.0); PLATELET COUNT 185 TH/MM3 (150-450); RED BLOOD COUNT 2.68 MIL/MM3 (4.00-5.30); RED CELL DISTRIBUTION WIDTH 20.7 % (11.6-17.2)
[2017-04-24 13:51] LABS: MEAN CORPUSCULAR HGB CONC 36.1 % (32.0-36.0)
[2017-04-24 14:09] LABS: BICARBONATE 26.1 MEQ/L (21.0-32.0); CALCIUM 8.4 MG/DL (8.5-10.1); CREATININE 0.92 MG/DL (0.50-1.00)
[2017-04-24] MEDS ORDERED: MAGNESIUM CITRATE SOLN 300 ML BTL PO ONE ×2 (16:00→18:00)
--- NOTE | 2017-04-24 16:04 | HHI.GIFU ---
Subjective Remarks Pt resting in bed in NAD in soft restraints. c/o fatigue. Per RN pt had ativan last at 0100. Pt denies n/v, abd pain, loose stool. Asking for ade mist. (Shira Cruz) Objective Vitals I&O Vital Signs Date Time Temp Pulse Resp B/P (MAP) Pulse Ox O2 Delivery O2 Flow Rate FiO2 04/24/17 13:27 Room Air 04/24/17 09:50 Room Air 04/24/17 08:00 85 04/24/17 08:00 98.3 84 16 126/70 (88) 98 04/24/17 05:21 99 126/81 04/24/17 05:18 98.0 96 20 114/70 (85) 96 04/24/17 04:00 Room Air 04/24/17 04:00 97.4 94 18 128/69 (88) 94 04/24/17 02:49 97.6 100 18 102/62 95 04/24/17 02:25 97.7 87 20 104/58 97 04/24/17 00:00 Room Air 04/24/17 00:00 88 04/23/17 23:15 98.2 91 18 125/62 97 04/23/17 23:15 98.2 91 18 126/62 (83) 97 04/23/17 22:57 98.0 96 20 117/63 94 04/23/17 22:38 98.1 91 20 118/59 95 04/23/17 22:10 98.1 97 20 118/57 96 04/23/17 20:00 97.3 105 16 126/70 (88) 97 04/23/17 20:00 110 04/23/17 20:00 Room Air 04/23/17 16:27 106 112/57 I/O 04/23/17 04/23/17 04/23/17 04/24/17 04/24/17 04/24/17 07:00 15:00 23:00 07:00 15:00 23:00 Intake Total 125 ml 380 ml 1277 ml Output Total 1050 ml 1000 ml 800 ml Balance -925 ml -620 ml 477 ml Intake Oral 380 ml 75 ml IV Total 125 ml Packed Cells 1200 ml Blood Product IV Normal Saline Flush 2 ml Output Urine Total 1050 ml 1000 ml 800 ml Bladder Scan Volume Amount 351 ml # Bowel Movements 1 0 Laboratory Laboratory Tests Test 04/24/17 10:34 04/24/17 12:53 04/24/17 13:10 Prothrombin Time 17.8 Prothromb Time International Ratio 1.8 Blood Urea Nitrogen 14 Creatinine 0.92 Random Glucose 108 Calcium Level 8.4 Sodium Level 136 Potassium Level 3.7 Chloride Level 103 Carbon Dioxide Level 26.1 Anion Gap 7 Estimat Glomerular Filtration Rate 60 White Blood Count 8.0 Red Blood Count 2.68 Hemoglobin 9.5 Hematocrit 26.3 Mean Corpuscular Volume 98.2 Mean Corpuscular Hemoglobin 35.4 Mean Corpuscular Hemoglobin Concent 36.1 Red Cell Distribution Width 20.7 Platelet Count 185 Mean Platelet Volume 8.8 Date/Time Source Procedure Growth Status 04/23/17 00:15 Urine Clean Catch Urine Culture Pending Received Imaging Last Impressions Abdomen Ultrasound 04/24/17 0000 Signed Impressions: Service Date/Time: April 07:52 - CONCLUSION: 1. The liver is enlarged with increased echogenicity and coarse echotexture. There is no focal mass or ascites. Findings are nonspecific and could indicate hepatocellular disease. 2. The spleen is at the upper limits of normal in size. 3. Abnormal gallbladder with wall thickening and small amount pericholecystic fluid. There is a single small echogenic foci which did not move or shadow and may represent a small polyp. There is no evidence of biliary obstruction. There was a negative sonographic Bazan's sign. 4. Small bilateral pleural effusions. Gigi Montoya MD Chest X-Ray 04/22/17 1248 Signed Impressions: Service Date/Time: Saturday, April 22, 2017 14:05 - CONCLUSION: No acute disease. Selvin Nicole MD Physical Exam HEENT: PERRL; normocephalic; atraumatic; no jaundice. CHEST: CTA CARDIAC: RRR ABDOMEN: Soft, nondistended, nontender; no hepatosplenomegaly; bowel sounds are present in all four quadrants. EXTREMITIES: No clubbing, cyanosis, or edema. SKIN: Normal; no rash; no jaundice. 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 8.8 on presentation, dropped to 7.5. on 01/2017 her hgb was 10.5 last colonoscopy 8 y ago, benign polyps found. coumadin held, plan for EGD and colonoscopy tomorrow consent obtained pt in soft restraints, tired but answering questions appropriately. HH improved s/p 2 x PRBC - ARF, AF, hallucinations per primary PLAN - EGD and colonoscopy friday - clear liquids today - NPO after MN - mg citrate prep followed by dulcolax - hold coumadin - d/w primary - monitor HH - transfuse if needed - further recs to follow depending on results above This pt seen by myself and DR Pabon and this note is written on her behalf (Shira Cruz) Physician Comments agree (Alaina Pabon MD) Shria Cruz Apr 24, 2017 16:04 Alaina Pabon MD Apr 24, 2017 16:59
[2017-04-24] MEDS ORDERED: PEG (High)/E-LYTE SOLN 4000 ML BTL PO ONE (17:00)
--- NOTE | 2017-04-24 18:52 | HHI.PR ---
Subjective Remarks Patient very sleepy and lethargic, awakens but goes back to sleep. afebrile Objective Vitals Vital Signs Date Time Temp Pulse Resp B/P (MAP) Pulse Ox O2 Delivery O2 Flow Rate FiO2 04/24/17 16:18 Room Air 04/24/17 16:00 98.7 93 18 110/56 (74) 95 04/24/17 16:00 97 04/24/17 13:27 Room Air 04/24/17 12:00 98.7 93 18 110/56 (74) 93 04/24/17 12:00 76 04/24/17 09:50 Room Air 04/24/17 08:00 85 04/24/17 08:00 98.3 84 16 126/70 (88) 98 04/24/17 05:21 99 126/81 04/24/17 05:18 98.0 96 20 114/70 (85) 96 04/24/17 04:00 Room Air 04/24/17 04:00 97.4 94 18 128/69 (88) 94 04/24/17 02:49 97.6 100 18 102/62 95 04/24/17 02:25 97.7 87 20 104/58 97 04/24/17 00:00 Room Air 04/24/17 00:00 88 04/23/17 23:15 98.2 91 18 125/62 97 04/23/17 23:15 98.2 91 18 126/62 (83) 97 04/23/17 22:57 98.0 96 20 117/63 94 04/23/17 22:38 98.1 91 20 118/59 95 04/23/17 22:10 98.1 97 20 118/57 96 04/23/17 20:00 97.3 105 16 126/70 (88) 97 04/23/17 20:00 110 04/23/17 20:00 Room Air I/O 04/23/17 04/23/17 04/23/17 04/24/17 04/24/17 04/24/17 07:00 15:00 23:00 07:00 15:00 23:00 Intake Total 125 ml 380 ml 1277 ml Output Total 1050 ml 1000 ml 800 ml Balance -925 ml -620 ml 477 ml Intake Oral 380 ml 75 ml IV Total 125 ml Packed Cells 1200 ml Blood Product IV Normal Saline Flush 2 ml Output Urine Total 1050 ml 1000 ml 800 ml Bladder Scan Volume Amount 351 ml # Bowel Movements 1 0 Result Diagram: 04/24/17 1310 04/24/17 1253 Imaging Last Impressions Abdomen Ultrasound 04/24/17 0000 Signed Impressions: Service Date/Time: April 07:52 - CONCLUSION: 1. The liver is enlarged with increased echogenicity and coarse echotexture. There is no focal mass or ascites. Findings are nonspecific and could indicate hepatocellular disease. 2. The spleen is at the upper limits of normal in size. 3. Abnormal gallbladder with wall thickening and small amount pericholecystic fluid. There is a single small echogenic foci which did not move or shadow and may represent a small polyp. There is no evidence of biliary obstruction. There was a negative sonographic Bazan's sign. 4. Small bilateral pleural effusions. Gigi Montoya MD Chest X-Ray 04/22/17 1248 Signed Impressions: Service Date/Time: Saturday, April 22, 2017 14:05 - CONCLUSION: No acute disease. Selvin Nicole MD Objective Remarks AAOx3, NAD Pale conjunctiva and skin Clear Lungs BL S1S2 tachycardic - irregularly irregular. Abdomen soft, nt, nd no edema in lower extremities Medications and IVs Current Medications Medications (Trade) Dose Ordered Sig/Karolina Route Start Time Stop Time Status Last Admin Diltiazem HCl 125 mg/Sodium Chloride 125 ml @ 5 mls/hr TITRATE PRN IV 04/22/17 14:30 04/24/17 05:21 (NS Flush) 2 ml UNSCH PRN IV FLUSH 04/22/17 15:45 (NS Flush) 2 ml BID IV FLUSH 04/22/17 21:00 04/23/17 20:25 (Tylenol) 650 mg Q4H PRN PO 04/22/17 15:45 (Narcan Inj) 0.4 mg UNSCH PRN IV PUSH 04/22/17 15:45 (Jo-Ann-Colace) 1 tab BID PO 04/22/17 21:00 04/24/17 09:45 (Milk Of Magnesia Liq) 30 ml Q12H PRN PO 04/22/17 15:45 (Senokot) 17.2 mg Q12H PRN PO 04/22/17 15:45 (Dulcolax Supp) 10 mg DAILY PRN RECTAL 04/22/17 15:45 (Lactulose Liq) 30 ml DAILY PRN PO 04/22/17 15:45 (Lac-Hydrin 12% Lotion) 1 applic BID TOPICAL 04/22/17 21:00 04/24/17 09:45 (Xanax) 0.5 mg Q8H PRN PO 04/22/17 16:00 04/23/17 20:33 (Nitrostat Sl) 0.4 mg Q5MIN PRN SL 04/22/17 16:00 (risperDAL) 0.5 mg Q12HR PO 04/22/17 21:00 04/24/17 09:45 (Sodium Chloride) 1 gm DAILY PO 04/23/17 09:00 04/24/17 09:45 (Lopressor) 50 mg BID PO 04/22/17 16:15 04/24/17 09:45 (Tylenol) 650 mg Q4H PRN PO 04/23/17 15:30 04/23/17 16:22 (Benadryl) 25 mg Q4H PRN PO 04/23/17 15:30 (Ativan Inj) 1 mg Q2H PRN IV PUSH 04/24/17 01:15 Ceftriaxone Sodium 2000 mg/ Sodium Chloride 100 ml @ 200 mls/hr Q24H IV 04/24/17 02:00 04/24/17 02:00 (Dulcolax Ec) 20 mg ONCE ONCE PO 04/24/17 20:00 04/24/17 20:01 A/P Problem List: (1) Atrial fibrillation with rapid ventricular response ICD Code: I48.91 - Unspecified atrial fibrillation Status: Acute (2) Anemia ICD Code: D64.9 - Anemia, unspecified Status: Acute (3) Acute renal failure ICD Code: N17.9 - Acute kidney failure, unspecified Status: Acute Assessment and Plan This is a 71-year-old female with history of atrial fibrillation presenting with anxiety/hallucinations, found to be in atrial fibrillation with RVR Atrial fibrillation with RVR-after 2 boluses of Cardizem IV, no response, start Cardizem drip. Restart metoprolol and Cardizem per home dose. Hold Coumadin for now given INR. Possible etiology may be dehydration versus anemia. TSH is elevated, check free T3 and free T4. Patient not in heart failure. Continue serial troponins and EKG. 04/23 TSH elevated but Free t4 normal, likely euthyroid sick syndrome. Troponins negative x5. Hold Coumadin for now given hemoglobin drop. Continue metoprolol and Cardizem. Will give an extra dose of 120 since patient still on Cardizem gtt. 04/24 Will increase Cardizem dose to 240 mg. Heart rate better controlled. Discussed with rn,m titrate cardizem drip to off. Hypertension-controlled, restart metoprolol and Cardizem, hold lisinopril for now given elevated creatinine Acute renal failure-could be prerenal, previous GFR 60 in January 2017, presently in the 30s. Received 1 L of fluids, we'll continue 1 more liter. Recheck BMP tomorrow. Check urinalysis. Hold Lasix and lisinopril 04/23 SARAI resolved after IVF administration. Hallucinations-was allegedly told she has UTI in the past 3 weeks, presently no urinary symptoms, check urinalysis. No antibiotics for now, no leukocytosis. Continue her risperidone and Xanax for now. Anemia-hemoglobin is 10 in January 2017, last colonoscopy was 3 years ago, recheck CBC, if with significant drop, may need transfusion. Consult GI if with further drop. Otherwise if hemoglobin remains stable, workup can be done as outpatient if with time the outpatient follow-up. 04/23 hemoglobin trending down and 7.5 today. GI consulted - transfuse 2 units of PRBC. Case discussed with Dr Pabon - possible EGD/colonoscopy friday since INR 2.5 today. Hold Coumadin and continue to monitor PT/INR. 04/24 Sp transfusion of 2 units of PRBC with appropriate hemoglobin response. Hemoglobin 9.5. For EGD and colonoscopy on friday. Continue to monitor CBC and transfuse as needed for hemoglobin less than 8 if active bleeding or less than 7 or symptomatic anemia. Encephalopathy The patient is lethargic but arousable. Patient was given IV Ativan last night for alcohol withdrawal. There are no signs of alcohol withdrawal at this time. I will hold on giving any further IV Ativan since patient has been lethargic for most of the day. We'll monitor neurological status. The patient actually woke up after being seen by me. Per patient, she has advanced directives, DNR/DNI Per patient, she lives by herself, ambulatory. No anticipated needs for discharge for now UTI: UA (+), urine culture pending. Started on IV Rocephin. 04/24 Urine culture negative, DC IV Rocephin. Discharge Planning Pending EGD/colonoscopy. Problem Qualifiers (1) Anemia: Qualified Codes: D64.9 - Anemia, unspecified (2) Acute renal failure: Qualified Codes: N17.9 - Acute kidney failure, unspecified Lee Cabrera MD Apr 24, 2017 18:51
[2017-04-24] MEDS ORDERED: BISACODYL EC 5 MG TABEC PO ONE (20:00)
[2017-04-24] MEDS: DILTIAZEM-CD 240 MG CAP ER PO SCH (21:06)
[2017-04-25] VITALS: BP 120/68; PULSE 85; PULSE 94; RESP 20; TEMP 98.1; O2SAT 98
[2017-04-25] MEDS: DILTIAZEM INJ 125 MG in SODIUM CHLORIDE 0.9% INJ 100 ML IV PRN (00:24)
[2017-04-25 04:00] VITALS: BP 137/69; PULSE 101; PULSE 85; RESP 21; TEMP 98.7; O2SAT 98
[2017-04-25] MEDS: ACETAMINOPHEN 325 MG TAB PO PRN (06:22)
[2017-04-25 08:00] VITALS: BP 120/65; PULSE 87; PULSE 93; RESP 17; TEMP 98; O2SAT 97
[2017-04-25] MEDS: risperiDONE 0.5 MG TAB PO SCH ×2 (09:00→21:50)
[2017-04-25] MEDS: SODIUM CHLORIDE 0.9% FLUSH 10 ML FLUSH IV FLUSH SCH ×2 (09:00→21:51)
[2017-04-25] MEDS: DOCUSATE SODIUM 50 MG/SENNA 8.6 MG TAB PO SCH ×2 (09:00→21:00)
[2017-04-25] MEDS: METOPROLOL TARTRATE 50 MG TAB PO SCH ×2 (09:00→21:50)
[2017-04-25 10:06] LABS: INTERNATIONAL NORMALIZED RATIO 1.8 RATIO; PROTHROMBIN TIME - PATIENT 18.1 SEC (9.8-11.6)
[2017-04-25] MEDS ORDERED: PHENYLEPH/NS 1000 MCG/10 ML SYR IV ONE (12:00)
[2017-04-25] MEDS ORDERED: LIDOCAINE HCL 1% PF 5 ML SYRINGE OTHER ONE (12:00)
[2017-04-25] MEDS ORDERED: PROPOFOL 200 MG/20 ML AMP IV ONE (12:00)
[2017-04-25] MEDS ORDERED: DO NOT ADM ANY ANTICOAGULANT DRUGS PRN (12:30)
--- NOTE | 2017-04-25 12:36 | GIPROC ---
[facility] [address] [facility]. [facility] [place], [address] COLONOSCOPY PROCEDURE REPORT EXAM DATE: 04/25/2017 PATIENT NAME: Gely Kang MR #: [id number] BIRTHDATE: 1945 ENDOSCOPIST: Alaina Pabon MD ORDER #: [id number] PREPARATION SUPERVISOR FREEZING: Marnie Peterson and Adrienne Frias STATUS: inpatient INDICATIONS: The patient is a 71 yr old female here for a colonoscopy due to anemia PROCEDURE PERFORMED: Colonoscopy, incomplete MEDICATIONS: None and Per Anesthesia. PREP QUALITY: 50 % obscured PREP TYPE:Other: ESTIMATED BLOOD LOSS: None CONSENT: The patient understands the risks and benefits of the procedure and understands that these risks include, but are not limited to: sedation, allergic reaction, infection, perforation and/or bleeding. Alternative means of evaluation and treatment include, among others: physical exam, x-rays, and/or surgical intervention. The patient elects to proceed with this endoscopic procedure. medical equipment was checked for proper function. Hand hygiene and appropriate measures for infection prevention was taken. After the risks, benefits and alternatives of the procedure were thoroughly explained, Informed consent was verified, confirmed and timeout was successfully executed by the treatment team. A digital exam revealed external hemorrhoids The Pentax EC-[id number] endoscope was introduced through the anus and advanced to the hepatic flexure. The instrument was then slowly withdrawn as the colon was fully examined. COLON FINDINGS: Very tortous and long colon, scope coud not be advanced further , semisolid stool. Retroflexed views revealed internal hemorrhoids and Retroflexed views revealed medium internal hemorrhoids The scope was then completely withdrawn from the patient and the procedure terminated. ADVERSE EVENTS: There were no complications. IMPRESSIONS: 1. Very tortous and long colon, scope coud not be advanced further , semisolid stool 2. Retroflexed views revealed internal hemorrhoids 3. Retroflexed views revealed medium internal hemorrhoids 4. Revealed external hemorrhoids RECOMMENDATIONS: 1. Benefiber 2 tsp daily 2. Probiotics from any C or health food store 3. Ba enema RECALL: Colonoscopy based on ba enema Alaina Pabon MD eSigned: Alaina Pabon MD 04/25/2017 12:35 PM cc:
--- NOTE | 2017-04-25 12:38 | GIPROC ---
[facility] [address] [facility]. [facility], [address] EGD PROCEDURE REPORT EXAM DATE: 04/25/2017 PATIENT NAME: Gely Kang MR #: [id number] BIRTHDATE: 1945 ATTENDING: Alaina Pabon MD ORDER #: [id number] PESTICIDE APPLICATOR: Marnie Peterson and Adrienne Frias STATUS: inpatient INDICATIONS: The patient is a 71 yr old female here for an EGD due to anemia PROCEDURE PERFORMED: EGD, diagnostic MEDICATIONS: None and Per Anesthesia. TOPICAL ANESTHETIC: none CONSENT: The patient understands the risks and benefits of the procedure and understands that these risks include, but are not limited to: sedation, allergic reaction, infection, perforation and/or bleeding. Alternative means of evaluation and treatment include, among others: physical exam, x-rays, and/or surgical intervention. The patient elects to proceed with this endoscopic procedure. medical equipment was checked for proper function. Hand hygiene and appropriate measures for infection prevention was taken. After the risks, benefits and alternatives of the procedure were thoroughly explained, Informed consent was verified, confirmed and timeout was successfully executed by the treatment team. The patient was anesthetized with topical anesthesia and the EC-[id number] (Pedi C) endoscope was introduced through the mouth and advanced to the second portion of the duodenum. Retroflexed views revealed a hiatal hernia The gastroscope was then slowly withdrawn and removed. Gastritis esophagitis as per anesthesia no biopsy, INR 1.8. ADVERSE EVENTS: There were no complications. IMPRESSIONS: 1. Gastritis esophagitis as per anesthesia no biopsy, INR 1.8 2. Retroflexed views revealed a hiatal hernia RECOMMENDATIONS: 1. Anti-reflux regimen 2. Continue PPI 3. Avoid NSAIDS 4. Resume diet egd 3 month fu offic post discharge PATIENT CONDITION: stable DISPOSITION: Inpatient REPEAT EXAM: Return 3 months EGD Alaina Pabon MD eSigned: Alaina Pabon MD 04/25/2017 12:38 PM cc: PATIENT NAME: Gely Kang MR#: [id number]
[2017-04-25] MEDS: LACTIC ACID (AMMONIUM LACTATE) 12% LOTION 225 GM BTL TOPICAL SCH ×2 (13:27→21:53)
[2017-04-25 13:45] VITALS: BP 126/67; PULSE 92; RESP 20; TEMP 97.8; O2SAT 97
[2017-04-25] MEDS: SODIUM CHLORIDE 1 GRAM TAB PO SCH (15:46)
[2017-04-25 16:00] VITALS: BP 135/65; PULSE 115; PULSE 123; RESP 18; TEMP 97.5; O2SAT 98
--- NOTE | 2017-04-25 16:45 | RADRPT ---
EXAM DATE/TIME: 04/25/2017 13:18 [facility] COMPARISON: No previous studies available for comparison. INDICATIONS : Clinical Academic Allergist for ACBE post incomlete colonoscopy. MEDICAL HISTORY : Arthritis. Carcinoma, breast. Afib. Confusion. HTN. Pneuomonia. UTI. Heartburn. Anemia. Insomia. Depr ession. Anxiety. SURGICAL HISTORY : Tonsillectomy. Hysterectomy. Tubal ligation. Clavicle resection. Orthopedic surgery, C6-C7. Blood tra nsfusions. Bilateral mastectomy. ENCOUNTER: Subsequent ACUITY: 1 day PAIN SCORE: 0/10 LOCATION: abdomen FINDINGS: Air is seen throughout the colon and small bowel. Enema will be obtained in the AM. . Lung base are clear. There is no obstruction. CONCLUSION: Gas-filled colon. Adan Bains MD FACR on April 25, 2017 at 16:41 Board Certified Radiologist. This report was verified electronically.
[2017-04-25 17:43] LABS: HEMATOCRIT 27.6 % (35.0-46.0); HEMOGLOBIN 9.8 GM/DL (11.6-15.3); MEAN CELL VOLUME 101.1 FL (80.0-100.0); MEAN CORPUSCULAR HEMOGLOBIN 35.8 PG (27.0-34.0); MEAN CORPUSCULAR HGB CONC 35.3 % (32.0-36.0); MEAN PLATELET VOLUME 8.2 FL (7.0-11.0); PLATELET COUNT 181 TH/MM3 (150-450); RED BLOOD COUNT 2.73 MIL/MM3 (4.00-5.30); WHITE BLOOD COUNT 8.5 TH/MM3 (4.0-11.0)
[2017-04-25 18:13] LABS: CREATININE 0.78 MG/DL (0.50-1.00)
--- NOTE | 2017-04-25 18:29 | HHI.PR ---
Subjective Remarks Patient states feels much better. is sp EGD and colonoscopy. Denies chest pain or shortness of breath. Denies abdominal pain, nausea, vomiting. As per rn patient is having urinary retention. Objective Vitals Vital Signs Date Time Temp Pulse Resp B/P (MAP) Pulse Ox O2 Delivery O2 Flow Rate FiO2 04/25/17 16:00 123 04/25/17 14:35 Room Air 04/25/17 13:45 97.8 92 20 126/67 (86) 97 04/25/17 12:45 97.3 97 20 141/73 (95) 98 04/25/17 10:54 93 20 129/66 (87) 97 04/25/17 10:22 103 20 125/71 (89) 98 04/25/17 09:50 95 20 124/66 (85) 96 04/25/17 09:20 95 126/78 (94) 99 04/25/17 08:45 Room Air 04/25/17 08:00 87 04/25/17 08:00 98.0 93 17 120/65 (83) 97 04/25/17 04:00 98.7 101 21 137/69 (91) 98 04/25/17 04:00 85 04/25/17 03:55 Room Air 04/25/17 00:24 80 120/68 04/25/17 00:00 85 04/25/17 00:00 Room Air 04/25/17 00:00 98.1 94 20 120/68 (85) 98 04/24/17 23:32 20 04/24/17 20:00 97.7 91 21 125/77 (93) 97 04/24/17 20:00 97.4 91 20 98 Automatic Cuff 04/24/17 20:00 101 04/24/17 20:00 Room Air I/O 04/24/17 04/24/17 04/24/17 04/25/17 04/25/17 04/25/17 07:00 15:00 23:00 07:00 15:00 23:00 Intake Total 1277 ml 0 ml 400 ml Output Total 800 ml Balance 477 ml 0 ml 400 ml Intake Oral 75 ml 0 ml Packed Cells 1200 ml Blood Product IV Normal Saline Flush 2 ml Other 400 ml Output Urine Total 800 ml Bladder Scan Volume Amount 351 ml 220 ml 138 ml # Voids 1 # Bowel Movements 0 6 Result Diagram: 04/25/17 1708 04/24/17 1253 Imaging Last Impressions Abdomen X-Ray 04/25/17 0000 Signed Impressions: Service Date/Time: Tuesday, April 25, 2017 13:18 - CONCLUSION: Gas-filled colon. Adan Bains MD FACR Abdomen Ultrasound 04/24/17 0000 Signed Impressions: Service Date/Time: April 07:52 - CONCLUSION: 1. The liver is enlarged with increased echogenicity and coarse echotexture. There is no focal mass or ascites. Findings are nonspecific and could indicate hepatocellular disease. 2. The spleen is at the upper limits of normal in size. 3. Abnormal gallbladder with wall thickening and small amount pericholecystic fluid. There is a single small echogenic foci which did not move or shadow and may represent a small polyp. There is no evidence of biliary obstruction. There was a negative sonographic Bazan's sign. 4. Small bilateral pleural effusions. Gigi Montoya MD Chest X-Ray 04/22/17 1248 Signed Impressions: Service Date/Time: Saturday, April 22, 2017 14:05 - CONCLUSION: No acute disease. Selvin Nicole MD Objective Remarks AAOx3, NAD Pale conjunctiva and skin Clear Lungs BL S1S2 tachycardic - irregularly irregular. Abdomen soft, nt, nd no edema in lower extremities Procedures Status post EGD/colonoscopy. Medications and IVs Current Medications Medications (Trade) Dose Ordered Sig/Karolina Route Start Time Stop Time Status Last Admin Diltiazem HCl 125 mg/Sodium Chloride 125 ml @ 5 mls/hr TITRATE PRN IV 04/22/17 14:30 04/25/17 00:24 (NS Flush) 2 ml UNSCH PRN IV FLUSH 04/22/17 15:45 (NS Flush) 2 ml BID IV FLUSH 04/22/17 21:00 04/24/17 21:06 (Tylenol) 650 mg Q4H PRN PO 04/22/17 15:45 (Narcan Inj) 0.4 mg UNSCH PRN IV PUSH 04/22/17 15:45 (Jo-Ann-Colace) 1 tab BID PO 04/22/17 21:00 04/24/17 09:45 (Milk Of Magnesia Liq) 30 ml Q12H PRN PO 04/22/17 15:45 (Senokot) 17.2 mg Q12H PRN PO 04/22/17 15:45 (Dulcolax Supp) 10 mg DAILY PRN RECTAL 04/22/17 15:45 (Lactulose Liq) 30 ml DAILY PRN PO 04/22/17 15:45 (Lac-Hydrin 12% Lotion) 1 applic BID TOPICAL 04/22/17 21:00 04/25/17 13:27 (Xanax) 0.5 mg Q8H PRN PO 04/22/17 16:00 04/23/17 20:33 (Nitrostat Sl) 0.4 mg Q5MIN PRN SL 04/22/17 16:00 (risperDAL) 0.5 mg Q12HR PO 04/22/17 21:00 04/24/17 21:10 (Sodium Chloride) 1 gm DAILY PO 04/23/17 09:00 04/25/17 15:46 (Lopressor) 50 mg BID PO 04/22/17 16:15 04/24/17 21:06 (Tylenol) 650 mg Q4H PRN PO 04/23/17 15:30 04/23/17 16:22 (Benadryl) 25 mg Q4H PRN PO 04/23/17 15:30 (Ativan Inj) 1 mg Q2H PRN IV PUSH 04/24/17 01:15 (Cardizem Cd) 240 mg HS PO 04/24/17 21:00 04/24/17 21:06 (Tylenol) 650 mg Q4H PRN PO 04/25/17 04:15 04/25/17 06:22 Miscellaneous Information ALL NURSING DEPARTME... UNSCH PRN .XX 04/25/17 12:30 04/26/17 12:29 Urinary Catheter: No Vascular Central Line Catheter: No A/P Problem List: (1) Atrial fibrillation with rapid ventricular response ICD Code: I48.91 - Unspecified atrial fibrillation Status: Acute (2) Anemia ICD Code: D64.9 - Anemia, unspecified Status: Acute (3) Acute renal failure ICD Code: N17.9 - Acute kidney failure, unspecified Status: Acute Assessment and Plan This is a 71-year-old female with history of atrial fibrillation presenting with anxiety/hallucinations, found to be in atrial fibrillation with RVR Atrial fibrillation with RVR-after 2 boluses of Cardizem IV, no response, start Cardizem drip. Restart metoprolol and Cardizem per home dose. Hold Coumadin for now given INR. Possible etiology may be dehydration versus anemia. TSH is elevated, check free T3 and free T4. Patient not in heart failure. Continue serial troponins and EKG. 04/23 TSH elevated but Free t4 normal, likely euthyroid sick syndrome. Troponins negative x5. Hold Coumadin for now given hemoglobin drop. Continue metoprolol and Cardizem. Will give an extra dose of 120 since patient still on Cardizem gtt. 04/24 Will increase Cardizem dose to 240 mg. Heart rate better controlled. Discussed with rn titrate cardizem drip to off. 04/25 continue Cardizem at 240 mg by mouth at bedtime. Her rate is controlled. DC IV Cardizem. Hypertension-controlled, restart metoprolol and Cardizem, hold lisinopril for now given elevated creatinine Acute renal failure-could be prerenal, previous GFR 60 in January 2017, presently in the 30s. Received 1 L of fluids, we'll continue 1 more liter. Recheck BMP tomorrow. Check urinalysis. Hold Lasix and lisinopril 04/23 SARAI resolved after IVF administration. Hallucinations-was allegedly told she has UTI in the past 3 weeks, presently no urinary symptoms, check urinalysis. No antibiotics for now, no leukocytosis. Continue her risperidone and Xanax for now. Anemia-hemoglobin is 10 in January 2017, last colonoscopy was 3 years ago, recheck CBC, if with significant drop, may need transfusion. Consult GI if with further drop. Otherwise if hemoglobin remains stable, workup can be done as outpatient if with time the outpatient follow-up. 04/23 hemoglobin trending down and 7.5 today. GI consulted - transfuse 2 units of PRBC. Case discussed with Dr Pabon - possible EGD/colonoscopy friday since INR 2.5 today. Hold Coumadin and continue to monitor PT/INR. 04/24 Sp transfusion of 2 units of PRBC with appropriate hemoglobin response. Hemoglobin 9.5. For EGD and colonoscopy on friday. Continue to monitor CBC and transfuse as needed for hemoglobin less than 8 if active bleeding or less than 7 or symptomatic anemia. 04/25 the patient is status post EGD and colonoscopy. EGD showed gastritis and esophagitis. Continue PPI. Colonoscopy was incomplete and will be repeated after barium enema in a.m. Encephalopathy The patient is lethargic but arousable. Patient was given IV Ativan last night for alcohol withdrawal. There are no signs of alcohol withdrawal at this time. I will hold on giving any further IV Ativan since patient has been lethargic for most of the day. We'll monitor neurological status. The patient actually woke up after being seen by me. 04/25 encephalopathy likely toxic. Now resolved. Per patient, she has advanced directives, DNR/DNI Per patient, she lives by herself, ambulatory. No anticipated needs for discharge for now UTI: UA (+), urine culture pending. Started on IV Rocephin. 04/24 Urine culture negative, Rocephin discontinued. Urinary retention. Insert Diallo catheter. Discharge Planning Discharge pending repeat colonoscopy and GI clearance. Problem Qualifiers (1) Anemia: Qualified Codes: D64.9 - Anemia, unspecified (2) Acute renal failure: Qualified Codes: N17.9 - Acute kidney failure, unspecified Lee Cabrera MD Apr 25, 2017 18:29
[2017-04-25 20:00] VITALS: BP 130/80; PULSE 108; PULSE 115; RESP 20; TEMP 98; O2SAT 97
[2017-04-25] MEDS: DILTIAZEM-CD 240 MG CAP ER PO SCH (21:50)
[2017-04-25] MEDS: ALPRAZolam 0.5 MG TAB PO PRN (22:39)
[2017-04-26] VITALS (7 sets, daily range): BP systolic 116–132; BP diastolic 60–86; PULSE 76–112; RESP 18–21; TEMP 97.3–98.2; O2SAT 96–100
[2017-04-26] MEDS: DOCUSATE SODIUM 50 MG/SENNA 8.6 MG TAB PO SCH ×2 (09:00→21:00)
[2017-04-26] MEDS: SODIUM CHLORIDE 1 GRAM TAB PO SCH (09:04)
[2017-04-26] MEDS: METOPROLOL TARTRATE 50 MG TAB PO SCH ×2 (09:04→21:33)
[2017-04-26] MEDS: SODIUM CHLORIDE 0.9% FLUSH 10 ML FLUSH IV FLUSH SCH ×2 (09:04→21:34)
[2017-04-26] MEDS: risperiDONE 0.5 MG TAB PO SCH ×2 (09:04→21:34)
[2017-04-26] MEDS: LACTIC ACID (AMMONIUM LACTATE) 12% LOTION 225 GM BTL TOPICAL SCH ×2 (09:05→21:34)
[2017-04-26] MEDS ORDERED: POTASSIUM CHLORIDE 10 MEQ CONTROLLED RELEASE TAB PO ONE (11:00)
--- NOTE | 2017-04-26 12:01 | RADRPT ---
EXAM DATE/TIME: 04/26/2017 10:28 [facility] COMPARISON: No previous studies available for comparison. INDICATIONS : Incomplete colonoscopy. FLUORO TIME: 2.5 minutes IMAGE COUNT: 31 CONTRAST: 1. Liquid Polibar Plus Barium Sulfate (105% w/v, 58% w/w) MEDICAL HISTORY : AnemiaArthritis. Carcinoma, breast. Afib. Confusion. HTN. Pneuomonia. UTI. Heartburn. SURGICAL HISTORY : Tonsillectomy. Hysterectomy. Tubal ligation. Clavicle resection. Orthopedic surgery, ENCOUNTER: Initial ACUITY: 4 - 6 days PAIN SCORE: 3/10 LOCATION: Bilateral upper quadrant FINDINGS: A balloon tip catheter was inserted into the rectum, and barium was instilled under fluoroscopic cont rol. Contrast flows to the hepatic flexure. No evidence of fixed narrowing, obstruction or abnormal f illing defect to this level. Examination is limited due to patient's limited mobility. Could not eval uate the cecum. CONCLUSION: Single contrast barium enema within normal limits to the level of the hepatic flexure. Cecum is not w ell evaluated due to patient's limited mobility during the exam. Trenton Turner MD on April 26, 2017 at 11:54 Board Certified Radiologist. This report was verified electronically.
--- NOTE | 2017-04-26 15:37 | HHI.GIFU ---
Subjective Remarks Pt resting in bed, in no apparent distress. Requesting her diet to be advanced. (Vianney Trujillo) Objective Vitals I&O Vital Signs Date Time Temp Pulse Resp B/P (MAP) Pulse Ox O2 Delivery O2 Flow Rate FiO2 04/26/17 10:49 96 04/26/17 04:00 76 04/26/17 04:00 98.2 90 21 116/80 (92) 96 04/26/17 00:00 80 04/26/17 00:00 Room Air 04/26/17 00:00 97.5 92 21 131/72 (91) 99 04/25/17 20:00 115 04/25/17 20:00 Room Air 04/25/17 20:00 98.0 108 20 130/80 (97) 97 04/25/17 18:21 95 126/67 04/25/17 16:00 97.5 115 18 135/65 (88) 98 04/25/17 16:00 123 I/O 04/25/17 04/25/17 04/25/17 04/26/17 04/26/17 04/26/17 07:00 15:00 23:00 07:00 15:00 23:00 Intake Total 0 ml 400 ml 960 ml 200 ml Output Total 650 ml Balance 0 ml 400 ml 960 ml -450 ml Intake Oral 0 ml 960 ml 200 ml Other 400 ml Output Urine Total 650 ml Bladder Scan Volume Amount 138 ml # Voids 1 2 # Bowel Movements 6 2 3 Laboratory Laboratory Tests Test 04/25/17 17:08 White Blood Count 8.5 Red Blood Count 2.73 Hemoglobin 9.8 Hematocrit 27.6 Mean Corpuscular Volume 101.1 Mean Corpuscular Hemoglobin 35.8 Mean Corpuscular Hemoglobin Concent 35.3 Red Cell Distribution Width 21.0 Platelet Count 181 Mean Platelet Volume 8.2 Blood Urea Nitrogen 9 Creatinine 0.78 Random Glucose 124 Calcium Level 8.0 Sodium Level 136 Potassium Level 3.3 Chloride Level 104 Carbon Dioxide Level 23.0 Anion Gap 9 Estimat Glomerular Filtration Rate 73 Date/Time Source Procedure Growth Status 04/23/17 00:15 Urine Clean Catch Urine Culture - Final <10,000 CFU/ML GRAM NEGATIVE [place] Complete Imaging Last Impressions Barium Enema 04/26/17 0000 Signed Impressions: Service Date/Time: Wednesday, April 26, 2017 10:28 - CONCLUSION: Single contrast barium enema within normal limits to the level of the hepatic flexure. Cecum is not well evaluated due to patient's limited mobility during the exam. Trenton Turner MD Abdomen X-Ray 04/25/17 0000 Signed Impressions: Service Date/Time: Tuesday, April 25, 2017 13:18 - CONCLUSION: Gas-filled colon. dAan Bains MD FACR Abdomen Ultrasound 04/24/17 0000 Signed Impressions: Service Date/Time: April 07:52 - CONCLUSION: 1. The liver is enlarged with increased echogenicity and coarse echotexture. There is no focal mass or ascites. Findings are nonspecific and could indicate hepatocellular disease. 2. The spleen is at the upper limits of normal in size. 3. Abnormal gallbladder with wall thickening and small amount pericholecystic fluid. There is a single small echogenic foci which did not move or shadow and may represent a small polyp. There is no evidence of biliary obstruction. There was a negative sonographic Bazan's sign. 4. Small bilateral pleural effusions. Gigi Montoya MD Chest X-Ray 04/22/17 1248 Signed Impressions: Service Date/Time: Saturday, April 22, 2017 14:05 - CONCLUSION: No acute disease. Selvin Nicole MD Physical Exam HEENT: Normocephalic; atraumatic CHEST: Even/unlabored CARDIAC: RRR ABDOMEN: Distended, soft, nontender, bowel sounds active EXTREMITIES: No clubbing, cyanosis, or edema. SKIN: Normal; no rash; no jaundice. SLEEVE FIXER: Alert and oriented x 3 (Vianney Trujillo BIT SANDER) Assessment and Plan Plan ASSESSMENT - Anemia- macrocytic. H/H currently 9.8/27.6 S/P 2 U PRBC last transfused on the and H/H have remained stable. Reports of possible melanotic stool. S/P EGD (04/25) --> Gastritis, esophagitis. Unable to biopsy due to INR 1.8. Colonoscopy (04/25) --> Very tortuous and long colon, scope could not be advanced futher than hepatic flexure. Internal hemorrhoids. Barium enema (04/25) --> Single contrast barium enema within normal limits to the level of the hepatic flexure. Cecum is not well evaluated due to patient's limited mobility during the exam. CT abdomen and pelvis ordered. - ARF, AF, hallucinations per primary PLAN - CT abdomen and pelvis W IV contrast - If negative will need CT colonography outpatient - [facility] - Repeat EGD in 3 months - Monitor H/H - Transfuse as needed - Protonix - Supportive care - Further recommendations to follow based on results of above This patient has been seen and examined by myself and Dr. Pabon and this note is written on her behalf (Vianney Trujillo) Vianney Trujillo Apr 26, 2017 15:37 Alaina Pabon MD Apr 26, 2017 19:31
[2017-04-26] MEDS ORDERED: DIATRIZOATE MEGLUM/DIATRIZOATE SOD 9 ML CUP PO ONE (15:45)
--- NOTE | 2017-04-26 16:51 | HHI.PR ---
Subjective Remarks sp Barium enema. Denies cp/sob. Objective Vitals Vital Signs Date Time Temp Pulse Resp B/P (MAP) Pulse Ox O2 Delivery O2 Flow Rate FiO2 04/26/17 10:49 96 04/26/17 04:00 76 04/26/17 04:00 98.2 90 21 116/80 (92) 96 04/26/17 00:00 80 04/26/17 00:00 Room Air 04/26/17 00:00 97.5 92 21 131/72 (91) 99 04/25/17 20:00 115 04/25/17 20:00 Room Air 04/25/17 20:00 98.0 108 20 130/80 (97) 97 04/25/17 18:21 95 126/67 I/O 04/25/17 04/25/17 04/25/17 04/26/17 04/26/17 04/26/17 07:00 15:00 23:00 07:00 15:00 23:00 Intake Total 0 ml 400 ml 960 ml 200 ml Output Total 650 ml Balance 0 ml 400 ml 960 ml -450 ml Intake Oral 0 ml 960 ml 200 ml Other 400 ml Output Urine Total 650 ml Bladder Scan Volume Amount 138 ml # Voids 1 2 # Bowel Movements 6 2 3 Result Diagram: 04/25/17 1708 04/25/17 1708 Imaging Last Impressions Barium Enema 04/26/17 0000 Signed Impressions: Service Date/Time: Wednesday, April 26, 2017 10:28 - CONCLUSION: Single contrast barium enema within normal limits to the level of the hepatic flexure. Cecum is not well evaluated due to patient's limited mobility during the exam. Trenton Turner MD Abdomen X-Ray 04/25/17 0000 Signed Impressions: Service Date/Time: Tuesday, April 25, 2017 13:18 - CONCLUSION: Gas-filled colon. Adan Bains MD FACR Abdomen Ultrasound 04/24/17 0000 Signed Impressions: Service Date/Time: April 07:52 - CONCLUSION: 1. The liver is enlarged with increased echogenicity and coarse echotexture. There is no focal mass or ascites. Findings are nonspecific and could indicate hepatocellular disease. 2. The spleen is at the upper limits of normal in size. 3. Abnormal gallbladder with wall thickening and small amount pericholecystic fluid. There is a single small echogenic foci which did not move or shadow and may represent a small polyp. There is no evidence of biliary obstruction. There was a negative sonographic Bazan's sign. 4. Small bilateral pleural effusions. Gigi Montoya MD Chest X-Ray 04/22/17 3698 Signed Impressions: Service Date/Time: Saturday, April 22, 2017 14:05 - CONCLUSION: No acute disease. Selvin Nicole MD Objective Remarks AAOx3, NAD Pale conjunctiva and skin Clear Lungs BL S1S2 tachycardic - irregularly irregular. Abdomen soft, nt, nd no edema in lower extremities Procedures Status post EGD/colonoscopy. Medications and IVs Current Medications Medications (Trade) Dose Ordered Sig/Karolina Route Start Time Stop Time Status Last Admin Diltiazem HCl 125 mg/Sodium Chloride 125 ml @ 5 mls/hr TITRATE PRN IV 04/22/17 14:30 04/25/17 00:24 (NS Flush) 2 ml UNSCH PRN IV FLUSH 04/22/17 15:45 (NS Flush) 2 ml BID IV FLUSH 04/22/17 21:00 04/26/17 09:04 (Tylenol) 650 mg Q4H PRN PO 04/22/17 15:45 (Narcan Inj) 0.4 mg UNSCH PRN IV PUSH 04/22/17 15:45 (Jo-Ann-Colace) 1 tab BID PO 04/22/17 21:00 04/24/17 09:45 (Milk Of Magnesia Liq) 30 ml Q12H PRN PO 04/22/17 15:45 (Senokot) 17.2 mg Q12H PRN PO 04/22/17 15:45 (Dulcolax Supp) 10 mg DAILY PRN RECTAL 04/22/17 15:45 (Lactulose Liq) 30 ml DAILY PRN PO 04/22/17 15:45 (Lac-Hydrin 12% Lotion) 1 applic BID TOPICAL 04/22/17 21:00 04/26/17 09:05 (Xanax) 0.5 mg Q8H PRN PO 04/22/17 16:00 04/25/17 22:39 (Nitrostat Sl) 0.4 mg Q5MIN PRN SL 04/22/17 16:00 (risperDAL) 0.5 mg Q12HR PO 04/22/17 21:00 04/26/17 09:04 (Sodium Chloride) 1 gm DAILY PO 04/23/17 09:00 04/26/17 09:04 (Lopressor) 50 mg BID PO 04/22/17 16:15 04/26/17 09:04 (Tylenol) 650 mg Q4H PRN PO 04/23/17 15:30 04/23/17 16:22 (Benadryl) 25 mg Q4H PRN PO 04/23/17 15:30 (Ativan Inj) 1 mg Q2H PRN IV PUSH 04/24/17 01:15 (Cardizem Cd) 240 mg HS PO 04/24/17 21:00 04/25/17 21:50 (Tylenol) 650 mg Q4H PRN PO 04/25/17 04:15 04/25/17 06:22 (Protonix) 40 mg DAILY PO 04/27/17 09:00 A/P Problem List: (1) Atrial fibrillation with rapid ventricular response ICD Code: I48.91 - Unspecified atrial fibrillation Status: Acute (2) Anemia ICD Code: D64.9 - Anemia, unspecified Status: Acute (3) Acute renal failure ICD Code: N17.9 - Acute kidney failure, unspecified Status: Acute Assessment and Plan This is a 71-year-old female with history of atrial fibrillation presenting with anxiety/hallucinations, found to be in atrial fibrillation with RVR Atrial fibrillation with RVR-after 2 boluses of Cardizem IV, no response, start Cardizem drip. Restart metoprolol and Cardizem per home dose. Hold Coumadin for now given INR. Possible etiology may be dehydration versus anemia. TSH is elevated, check free T3 and free T4. Patient not in heart failure. Continue serial troponins and EKG. 04/23 TSH elevated but Free t4 normal, likely euthyroid sick syndrome. Troponins negative x5. Hold Coumadin for now given hemoglobin drop. Continue metoprolol and Cardizem. Will give an extra dose of 120 since patient still on Cardizem gtt. 04/24 Will increase Cardizem dose to 240 mg. Heart rate better controlled. Discussed with rn titrate cardizem drip to off. 04/25 continue Cardizem at 240 mg by mouth at bedtime. Her rate is controlled. DC IV Cardizem. Hypertension-controlled, restart metoprolol and Cardizem, hold lisinopril for now given elevated creatinine Acute renal failure-could be prerenal, previous GFR 60 in January 2017, presently in the 30s. Received 1 L of fluids, we'll continue 1 more liter. Recheck BMP tomorrow. Check urinalysis. Hold Lasix and lisinopril 04/23 SARAI resolved after IVF administration. Hallucinations-was allegedly told she has UTI in the past 3 weeks, presently no urinary symptoms, check urinalysis. No antibiotics for now, no leukocytosis. Continue her risperidone and Xanax for now. Anemia-hemoglobin is 10 in January 2017, last colonoscopy was 3 years ago, recheck CBC, if with significant drop, may need transfusion. Consult GI if with further drop. Otherwise if hemoglobin remains stable, workup can be done as outpatient if with time the outpatient follow-up. 04/23 hemoglobin trending down and 7.5 today. GI consulted - transfuse 2 units of PRBC. Case discussed with Dr Pabon - possible EGD/colonoscopy friday since INR 2.5 today. Hold Coumadin and continue to monitor PT/INR. 04/24 Sp transfusion of 2 units of PRBC with appropriate hemoglobin response. Hemoglobin 9.5. For EGD and colonoscopy on friday. Continue to monitor CBC and transfuse as needed for hemoglobin less than 8 if active bleeding or less than 7 or symptomatic anemia. 04/25 the patient is status post EGD and colonoscopy. EGD showed gastritis and esophagitis. Continue PPI. Colonoscopy was incomplete and will be repeated after barium enema in a.m. 04/26 by am enema within normal limits to the level of the hepatic flexure. Cecum not well related due to the patient's limited mobility during the exam. Discussed the case with gastroenterology and will order a CT abdomen and pelvis with IV contrast. Toxic Encephalopathy The patient is lethargic but arousable. Patient was given IV Ativan last night for alcohol withdrawal. There are no signs of alcohol withdrawal at this time. I will hold on giving any further IV Ativan since patient has been lethargic for most of the day. We'll monitor neurological status. The patient actually woke up after being seen by me. 04/25 encephalopathy likely toxic. Now resolved. Per patient, she has advanced directives, DNR/DNI Per patient, she lives by herself, ambulatory. No anticipated needs for discharge for now UTI: UA (+), urine culture pending. Started on IV Rocephin. 04/24 Urine culture negative, Rocephin discontinued. Urinary retention. Insert Diallo catheter. Discharge Planning Charge pending CT abdomen and pelvis and GI clearance. Problem Qualifiers (1) Anemia: Qualified Codes: D64.9 - Anemia, unspecified (2) Acute renal failure: Qualified Codes: N17.9 - Acute kidney failure, unspecified Lee Cabrera MD Apr 26, 2017 16:51
[2017-04-26] MEDS: DILTIAZEM-CD 240 MG CAP ER PO SCH (21:33)
[2017-04-27] VITALS (9 sets, daily range): BP systolic 116–141; BP diastolic 56–75; PULSE 76–107; RESP 18–20; TEMP 97.6–98.9; O2SAT 94–99
[2017-04-27] MEDS: ALPRAZolam 0.5 MG TAB PO PRN (00:54)
[2017-04-27 08:07] LABS: HEMATOCRIT 27.4 % (35.0-46.0); HEMOGLOBIN 9.4 GM/DL (11.6-15.3); MEAN CELL VOLUME 100.4 FL (80.0-100.0); MEAN CORPUSCULAR HEMOGLOBIN 34.6 PG (27.0-34.0); MEAN CORPUSCULAR HGB CONC 34.4 % (32.0-36.0); MEAN PLATELET VOLUME 8.3 FL (7.0-11.0); PLATELET COUNT 190 TH/MM3 (150-450); RED BLOOD COUNT 2.73 MIL/MM3 (4.00-5.30); RED CELL DISTRIBUTION WIDTH 21.3 % (11.6-17.2); WHITE BLOOD COUNT 7.5 TH/MM3 (4.0-11.0)
[2017-04-27 08:31] LABS: BLOOD UREA NITROGEN 6 MG/DL (7-18); CALCIUM 8.1 MG/DL (8.5-10.1); CHLORIDE 101 MEQ/L (98-107); CREATININE 0.74 MG/DL (0.50-1.00); GLOMERULAR FILTRATION RATE 78 ML/MIN (>89); GLUCOSE,RANDOM 129 MG/DL (74-106); SODIUM (NA) 135 MEQ/L (136-145)
[2017-04-27] MEDS: LACTIC ACID (AMMONIUM LACTATE) 12% LOTION 225 GM BTL TOPICAL SCH ×2 (09:00→22:16)
[2017-04-27] MEDS: SODIUM CHLORIDE 0.9% FLUSH 10 ML FLUSH IV FLUSH SCH ×2 (09:00→22:17)
[2017-04-27 09:13] LABS: HEMOGLOBIN A1C 4.7 % (4.3-6.0)
[2017-04-27] MEDS ORDERED: POTASSIUM CHLORIDE 10 MEQ CONTROLLED RELEASE TAB PO ONE (10:00)
[2017-04-27] MEDS: METOPROLOL TARTRATE 50 MG TAB PO SCH ×2 (10:32→22:14)
[2017-04-27] MEDS: SODIUM CHLORIDE 1 GRAM TAB PO SCH (10:32)
[2017-04-27] MEDS: DOCUSATE SODIUM 50 MG/SENNA 8.6 MG TAB PO SCH ×3 (10:32→22:24)
[2017-04-27] MEDS: PANTOPRAZOLE SOD 40 MG DELAYED RELEASE TAB PO SCH (10:32)
[2017-04-27] MEDS: risperiDONE 0.5 MG TAB PO SCH ×3 (10:32→22:15)
[2017-04-27] MEDS ORDERED: DIATRIZOATE MEGLUM/DIATRIZOATE SOD 9 ML CUP PO ONE (12:00)
--- NOTE | 2017-04-27 17:04 | HHI.PR ---
Subjective Remarks Patient states feels well Denies nausea, vomiting or abdominal pain. Denies fevers or chills Objective Vitals Vital Signs Date Time Temp Pulse Resp B/P (MAP) Pulse Ox O2 Delivery O2 Flow Rate FiO2 04/27/17 12:00 97.6 81 18 129/70 (89) 99 04/27/17 08:00 98.3 96 18 141/75 (97) 97 04/27/17 04:00 103 04/27/17 04:00 Room Air 04/27/17 04:00 98.0 99 18 141/65 (90) 95 04/27/17 00:00 100 04/27/17 00:00 Room Air 04/27/17 00:00 97.8 97 20 125/74 (91) 96 04/26/17 20:00 112 04/26/17 20:00 Room Air 04/26/17 20:00 97.8 106 18 130/77 (94) 96 I/O 04/26/17 04/26/17 04/26/17 04/27/17 04/27/17 04/27/17 06:59 14:59 22:59 06:59 14:59 22:59 Intake Total 200 ml 1200 ml Output Total 650 ml 650 ml 950 ml Balance -450 ml 550 ml -950 ml Intake Oral 200 ml 1200 ml Output Urine Total 650 ml 650 ml 950 ml # Bowel Movements 3 0 Result Diagram: 04/27/17 0600 04/27/17 0600 Imaging Last Impressions Barium Enema 04/26/17 0000 Signed Impressions: Service Date/Time: Wednesday, April 26, 2017 10:28 - CONCLUSION: Single contrast barium enema within normal limits to the level of the hepatic flexure. Cecum is not well evaluated due to patient's limited mobility during the exam. Trenton Turner MD Abdomen X-Ray 04/25/17 0000 Signed Impressions: Service Date/Time: Tuesday, April 25, 2017 13:18 - CONCLUSION: Gas-filled colon. Adan Bains MD FACR Abdomen Ultrasound 04/24/17 0000 Signed Impressions: Service Date/Time: April 07:52 - CONCLUSION: 1. The liver is enlarged with increased echogenicity and coarse echotexture. There is no focal mass or ascites. Findings are nonspecific and could indicate hepatocellular disease. 2. The spleen is at the upper limits of normal in size. 3. Abnormal gallbladder with wall thickening and small amount pericholecystic fluid. There is a single small echogenic foci which did not move or shadow and may represent a small polyp. There is no evidence of biliary obstruction. There was a negative sonographic Bazan's sign. 4. Small bilateral pleural effusions. Gigi Montoya MD Chest X-Ray 04/22/17 1248 Signed Impressions: Service Date/Time: Saturday, April 22, 2017 14:05 - CONCLUSION: No acute disease. Selvin Nicole MD Objective Remarks AAOx3, NAD Pale conjunctiva and skin Clear Lungs BL S1S2 tachycardic - irregularly irregular. Abdomen soft, nt, nd no edema in lower extremities Procedures Status post EGD/colonoscopy. Medications and IVs Current Medications Medications (Trade) Dose Ordered Sig/Karolina Route Start Time Stop Time Status Last Admin Diltiazem HCl 125 mg/Sodium Chloride 125 ml @ 5 mls/hr TITRATE PRN IV 04/22/17 14:30 04/25/17 00:24 (NS Flush) 2 ml UNSCH PRN IV FLUSH 04/22/17 15:45 (NS Flush) 2 ml BID IV FLUSH 04/22/17 21:00 04/27/17 09:00 (Tylenol) 650 mg Q4H PRN PO 04/22/17 15:45 (Narcan Inj) 0.4 mg UNSCH PRN IV PUSH 04/22/17 15:45 (Jo-Ann-Colace) 1 tab BID PO 04/22/17 21:00 04/27/17 10:32 (Milk Of Magnesia Liq) 30 ml Q12H PRN PO 04/22/17 15:45 (Senokot) 17.2 mg Q12H PRN PO 04/22/17 15:45 (Dulcolax Supp) 10 mg DAILY PRN RECTAL 04/22/17 15:45 (Lactulose Liq) 30 ml DAILY PRN PO 04/22/17 15:45 (Lac-Hydrin 12% Lotion) 1 applic BID TOPICAL 04/22/17 21:00 04/26/17 21:34 (Xanax) 0.5 mg Q8H PRN PO 04/22/17 16:00 04/27/17 00:54 (Nitrostat Sl) 0.4 mg Q5MIN PRN SL 04/22/17 16:00 (risperDAL) 0.5 mg Q12HR PO 04/22/17 21:00 04/27/17 10:32 (Sodium Chloride) 1 gm DAILY PO 04/23/17 09:00 04/27/17 10:32 (Lopressor) 50 mg BID PO 04/22/17 16:15 04/27/17 10:32 (Tylenol) 650 mg Q4H PRN PO 04/23/17 15:30 04/23/17 16:22 (Benadryl) 25 mg Q4H PRN PO 04/23/17 15:30 (Ativan Inj) 1 mg Q2H PRN IV PUSH 04/24/17 01:15 (Cardizem Cd) 240 mg HS PO 04/24/17 21:00 04/26/17 21:33 (Tylenol) 650 mg Q4H PRN PO 04/25/17 04:15 04/25/17 06:22 (Protonix) 40 mg DAILY PO 04/27/17 09:00 04/27/17 10:32 A/P Problem List: (1) Atrial fibrillation with rapid ventricular response ICD Code: I48.91 - Unspecified atrial fibrillation Status: Acute (2) Anemia ICD Code: D64.9 - Anemia, unspecified Status: Acute (3) Acute renal failure ICD Code: N17.9 - Acute kidney failure, unspecified Status: Acute Assessment and Plan This is a 71-year-old female with history of atrial fibrillation presenting with anxiety/hallucinations, found to be in atrial fibrillation with RVR Atrial fibrillation with RVR-after 2 boluses of Cardizem IV, no response, start Cardizem drip. Restart metoprolol and Cardizem per home dose. Hold Coumadin for now given INR. Possible etiology may be dehydration versus anemia. TSH is elevated, check free T3 and free T4. Patient not in heart failure. Continue serial troponins and EKG. 04/23 TSH elevated but Free t4 normal, likely euthyroid sick syndrome. Troponins negative x5. Hold Coumadin for now given hemoglobin drop. Continue metoprolol and Cardizem. Will give an extra dose of 120 since patient still on Cardizem gtt. 04/24 Will increase Cardizem dose to 240 mg. Heart rate better controlled. Discussed with rn titrate cardizem drip to off. 04/25 continue Cardizem at 240 mg by mouth at bedtime. Her rate is controlled. DC IV Cardizem. 04/27 Rate controlled. Continue PO Cardizem. Hypertension-controlled, restart metoprolol and Cardizem, hold lisinopril for now given elevated creatinine Acute renal failure-could be prerenal, previous GFR 60 in January 2017, presently in the 30s. Received 1 L of fluids, we'll continue 1 more liter. Recheck BMP tomorrow. Check urinalysis. Hold Lasix and lisinopril 04/23 SARAI resolved after IVF administration. Hallucinations-was allegedly told she has UTI in the past 3 weeks, presently no urinary symptoms, check urinalysis. No antibiotics for now, no leukocytosis. Continue her risperidone and Xanax for now. Anemia-hemoglobin is 10 in January 2017, last colonoscopy was 3 years ago, recheck CBC, if with significant drop, may need transfusion. Consult GI if with further drop. Otherwise if hemoglobin remains stable, workup can be done as outpatient if with time the outpatient follow-up. 04/23 hemoglobin trending down and 7.5 today. GI consulted - transfuse 2 units of PRBC. Case discussed with Dr Pabon - possible EGD/colonoscopy friday since INR 2.5 today. Hold Coumadin and continue to monitor PT/INR. 04/24 Sp transfusion of 2 units of PRBC with appropriate hemoglobin response. Hemoglobin 9.5. For EGD and colonoscopy on friday. Continue to monitor CBC and transfuse as needed for hemoglobin less than 8 if active bleeding or less than 7 or symptomatic anemia. 04/25 the patient is status post EGD and colonoscopy. EGD showed gastritis and esophagitis. Continue PPI. Colonoscopy was incomplete and will be repeated after barium enema in a.m. 04/26 by am enema within normal limits to the level of the hepatic flexure. Cecum not well related due to the patient's limited mobility during the exam. Discussed the case with gastroenterology and will order a CT abdomen and pelvis with IV contrast. 04/27 CT abdomen and pelvis pending. Toxic Encephalopathy The patient is lethargic but arousable. Patient was given IV Ativan last night for alcohol withdrawal. There are no signs of alcohol withdrawal at this time. I will hold on giving any further IV Ativan since patient has been lethargic for most of the day. We'll monitor neurological status. The patient actually woke up after being seen by me. 04/25 encephalopathy likely toxic. Now resolved. Per patient, she has advanced directives, DNR/DNI Per patient, she lives by herself, ambulatory. No anticipated needs for discharge for now UTI: UA (+), urine culture pending. Started on IV Rocephin. 04/24 Urine culture negative, Rocephin discontinued. Urinary retention. Diallo catheter placed. Start voiding trials in am. Will Rx Flomax. Discharge Planning Charge pending CT abdomen and pelvis and GI clearance. Problem Qualifiers (1) Anemia: Qualified Codes: D64.9 - Anemia, unspecified (2) Acute renal failure: Qualified Codes: N17.9 - Acute kidney failure, unspecified Lee Cabrera MD Apr 27, 2017 17:04
[2017-04-27] MEDS ORDERED: MAGNESIUM SULFATE 1 GM PREMIX 100 ML IV ONE (17:15)
[2017-04-27] MEDS: DILTIAZEM-CD 240 MG CAP ER PO SCH (22:14)
[2017-04-28] VITALS: BP 125/77; PULSE 103; PULSE 90; RESP 18; TEMP 97.8; O2SAT 95
[2017-04-28 04:00] VITALS: BP 112/67; PULSE 93; PULSE 95; RESP 18; TEMP 97.6; O2SAT 98
[2017-04-28 08:00] VITALS: BP 130/67; PULSE 100; PULSE 90; RESP 17; TEMP 97.6; O2SAT 98
[2017-04-28] MEDS: PANTOPRAZOLE SOD 40 MG DELAYED RELEASE TAB PO SCH (08:38)
[2017-04-28] MEDS: DOCUSATE SODIUM 50 MG/SENNA 8.6 MG TAB PO SCH ×2 (08:38→21:39)
[2017-04-28] MEDS: risperiDONE 0.5 MG TAB PO SCH ×2 (08:39→21:00)
[2017-04-28] MEDS: METOPROLOL TARTRATE 50 MG TAB PO SCH ×2 (08:39→21:39)
[2017-04-28] MEDS: SODIUM CHLORIDE 1 GRAM TAB PO SCH (08:39)
[2017-04-28] MEDS: LACTIC ACID (AMMONIUM LACTATE) 12% LOTION 225 GM BTL TOPICAL SCH ×2 (08:39→21:42)
[2017-04-28] MEDS: SODIUM CHLORIDE 0.9% FLUSH 10 ML FLUSH IV FLUSH SCH ×2 (08:40→21:42)
--- NOTE | 2017-04-28 09:40 | RADRPT ---
EXAM DATE/TIME: 04/28/2017 08:53 [facility] COMPARISON: ABDOMEN KUB ONLY, April 25, 2017, 13:18. INDICATIONS : Evaluate for residual barium. MEDICAL HISTORY : Carcinoma, breast. Hypertension Afib. Anemia. SURGICAL HISTORY : Tonsillectomy. Hysterectomy. Tubal ligation. ENCOUNTER: Subsequent ACUITY: 4 - 6 days PAIN SCORE: 0/10 LOCATION: Bilateral Abdomen FINDINGS: 2 supine AP views of the abdomen demonstrate residual barium contrast material throughout the colon a nd rectum. There is a nonobstructive bowel gas pattern. No organomegaly is present. No concerning josef cifications are seen. Bones demonstrate no acute finding. CONCLUSION: There is a significant residual amount of barium contrast throughout the colon and rectum which would result in significant artifact the patient undergo CT scan. If CT scan is dated today, consider givi ng a laxative to remove the remaining oral contrast. Otherwise, if it is not an emergent CT scan, con flight operations dispatch clerk waiting a few more days to perform. Selvin Camargo MD on April 28, 2017 at 9:31 Board Certified Radiologist. This report was verified electronically.
[2017-04-28 12:00] VITALS: BP 130/78; PULSE 77; PULSE 86; RESP 17; TEMP 97.3; O2SAT 95
[2017-04-28 13:00] LABS: BICARBONATE 22.3 MEQ/L (21.0-32.0); CALCIUM 8.5 MG/DL (8.5-10.1); CREATININE 0.9 MG/DL (0.50-1.00)
[2017-04-28] MEDS ORDERED: POLYETHYLENE GLYCOL 17 GM PKG PO ONE (13:45)
[2017-04-28 16:00] VITALS: BP 127/67; PULSE 100; PULSE 96; RESP 17; TEMP 97.4; O2SAT 100
--- NOTE | 2017-04-28 16:56 | HHI.GIFU ---
Subjective Remarks Pt is sitting on side of bed, in no apparent distress. She repots multiple BMs since taking the MiraLax. Has also been trying to drink a lot of fluids to flush out the barium enema contrast so that she can have the CT scan done. (Vianney Trujillo) Objective Vitals I&O Vital Signs Date Time Temp Pulse Resp B/P (MAP) Pulse Ox O2 Delivery O2 Flow Rate FiO2 04/28/17 12:00 97.3 86 17 130/78 (95) 95 04/28/17 12:00 77 04/28/17 08:00 100 04/28/17 08:00 97.6 90 17 130/67 (88) 98 04/28/17 07:20 Room Air 04/28/17 04:00 95 04/28/17 04:00 97.6 93 18 112/67 (82) 98 04/28/17 00:00 97.8 103 18 125/77 (93) 95 04/28/17 00:00 90 04/27/17 22:20 96 21 04/27/17 21:00 Room Air 04/27/17 21:00 105 04/27/17 20:00 98.9 98 18 125/67 (86) 95 I/O 04/27/17 04/27/17 04/27/17 04/28/17 04/28/17 04/28/17 07:00 15:00 23:00 07:00 15:00 23:00 Intake Total 580 ml 480 ml Output Total 950 ml 750 ml 650 ml Balance -950 ml -170 ml -170 ml Intake Oral 480 ml 480 ml IV Total 100 ml Output Urine Total 950 ml 750 ml 650 ml # Bowel Movements 0 0 Laboratory Laboratory Tests Test 04/28/17 04:15 Blood Urea Nitrogen 9 Creatinine 0.90 Random Glucose 126 Calcium Level 8.5 Sodium Level 136 Potassium Level 4.0 Chloride Level 104 Carbon Dioxide Level 22.3 Anion Gap 10 Estimat Glomerular Filtration Rate 62 Magnesium Level 1.8 Date/Time Source Procedure Growth Status 04/23/17 00:15 Urine Clean Catch Urine Culture - Final <10,000 CFU/ML GRAM NEGATIVE [place] Complete Imaging Last Impressions Abdomen X-Ray 04/28/17 0000 Signed Impressions: Service Date/Time: Friday, April 28, 2017 08:53 - CONCLUSION: There is a significant residual amount of barium contrast throughout the colon and rectum which would result in significant artifact the patient undergo CT scan. If CT scan is dated today, consider giving a laxative to remove the remaining oral contrast. Otherwise, if it is not an emergent CT scan, consider waiting a few more days to perform. Selvin Camargo MD Barium Enema 04/26/17 0000 Signed Impressions: Service Date/Time: Wednesday, April 26, 2017 10:28 - CONCLUSION: Single contrast barium enema within normal limits to the level of the hepatic flexure. Cecum is not well evaluated due to patient's limited mobility during the exam. Trenton Turner MD Abdomen Ultrasound 04/24/17 0000 Signed Impressions: Service Date/Time: April 07:52 - CONCLUSION: 1. The liver is enlarged with increased echogenicity and coarse echotexture. There is no focal mass or ascites. Findings are nonspecific and could indicate hepatocellular disease. 2. The spleen is at the upper limits of normal in size. 3. Abnormal gallbladder with wall thickening and small amount pericholecystic fluid. There is a single small echogenic foci which did not move or shadow and may represent a small polyp. There is no evidence of biliary obstruction. There was a negative sonographic Bazan's sign. 4. Small bilateral pleural effusions. Gigi Montoya MD Chest X-Ray 04/22/17 1248 Signed Impressions: Service Date/Time: Saturday, April 22, 2017 14:05 - CONCLUSION: No acute disease. Selvin Nicole MD Physical Exam HEENT: Normocephalic; atraumatic CHEST: Even/unlabored CARDIAC: RRR ABDOMEN: Distended, soft, nontender, bowel sounds active EXTREMITIES: No clubbing, cyanosis, or edema. SKIN: Normal; no rash; no jaundice. SWAGE TOOLSETTER: Alert and oriented x 3 (Vianney Trujillo) Assessment and Plan Plan ASSESSMENT - Anemia- macrocytic. H/H currently 9.8/27.6 S/P 2 U PRBC last transfused on the and H/H have remained stable. Reports of possible melanotic stool. S/P EGD (04/25) --> Gastritis, esophagitis. Unable to biopsy due to INR 1.8. Colonoscopy (04/25) --> Very tortuous and long colon, scope could not be advanced futher than hepatic flexure. Internal hemorrhoids. Barium enema (04/25) --> Single contrast barium enema within normal limits to the level of the hepatic flexure. Cecum is not well evaluated due to patient's limited mobility during the exam. CT abdomen and pelvis ordered. - ARF, AF, hallucinations per primary (04/28) Pt had a KUB which revealed significant residual amount of barium contrast throughout the colon and rectum which would result in significant artifact the patient undergo CT scan. Pt has been given MiraLAX to clear out barium contrast so that CT scan can be done. Pt reports multiple BMs since then and can probably have CT done now. Pt has no complaints at this time. PLAN - CT abdomen and pelvis W IV contrast - If negative will need CT colonography outpatient - [facility] - Repeat EGD in 3 months - Monitor H/H - Transfuse as needed - Protonix - Supportive care - Further recommendations to follow based on results of above This patient has been seen and examined by myself and and this note is written on his behalf (Vianney Trujillo) Physician Comments Patient seen and examined Agree with above Continue with current supportive care Monitor labs No active bleeding Not much to add from a GI standpoint we will sign off (Aly Narvaez MD) Vianney Trujillo Apr 28, 2017 16:56 Aly Narvaez MD Apr 29, 2017 00:50
--- NOTE | 2017-04-28 16:57 | HHI.PR ---
Subjective Remarks Patient feels fine. Denies cp/sob. Denies melena. Objective Vitals Vital Signs Date Time Temp Pulse Resp B/P (MAP) Pulse Ox O2 Delivery O2 Flow Rate FiO2 04/28/17 16:00 97.4 96 17 127/67 (87) 100 04/28/17 12:00 97.3 86 17 130/78 (95) 95 04/28/17 12:00 77 04/28/17 08:00 100 04/28/17 08:00 97.6 90 17 130/67 (88) 98 04/28/17 07:20 Room Air 04/28/17 04:00 95 04/28/17 04:00 97.6 93 18 112/67 (82) 98 04/28/17 00:00 97.8 103 18 125/77 (93) 95 04/28/17 00:00 90 04/27/17 22:20 96 21 04/27/17 21:00 Room Air 04/27/17 21:00 105 04/27/17 20:00 98.9 98 18 125/67 (86) 95 I/O 04/27/17 04/27/17 04/27/17 04/28/17 04/28/17 04/28/17 07:00 15:00 23:00 07:00 15:00 23:00 Intake Total 580 ml 480 ml Output Total 950 ml 750 ml 650 ml Balance -950 ml -170 ml -170 ml Intake Oral 480 ml 480 ml IV Total 100 ml Output Urine Total 950 ml 750 ml 650 ml # Bowel Movements 0 0 Result Diagram: 04/27/17 0600 04/28/17 0415 Imaging Last 72 hours Impressions Abdomen X-Ray 04/28/17 0000 Signed Impressions: Service Date/Time: Friday, April 28, 2017 08:53 - CONCLUSION: There is a significant residual amount of barium contrast throughout the colon and rectum which would result in significant artifact the patient undergo CT scan. If CT scan is dated today, consider giving a laxative to remove the remaining oral contrast. Otherwise, if it is not an emergent CT scan, consider waiting a few more days to perform. Selvin Camargo MD Barium Enema 04/26/17 0000 Signed Impressions: Service Date/Time: Wednesday, April 26, 2017 10:28 - CONCLUSION: Single contrast barium enema within normal limits to the level of the hepatic flexure. Cecum is not well evaluated due to patient's limited mobility during the exam. Trenton Turner MD Objective Remarks AAOx3, NAD Pale conjunctiva and skin Clear Lungs BL S1S2 tachycardic - irregularly irregular. Abdomen soft, nt, nd no edema in lower extremities Procedures Status post EGD/colonoscopy. Medications and IVs Current Medications Medications (Trade) Dose Ordered Sig/Karolina Route Start Time Stop Time Status Last Admin Diltiazem HCl 125 mg/Sodium Chloride 125 ml @ 5 mls/hr TITRATE PRN IV 04/22/17 14:30 04/25/17 00:24 (NS Flush) 2 ml UNSCH PRN IV FLUSH 04/22/17 15:45 (NS Flush) 2 ml BID IV FLUSH 04/22/17 21:00 04/28/17 08:40 (Tylenol) 650 mg Q4H PRN PO 04/22/17 15:45 04/28/17 10:44 (Narcan Inj) 0.4 mg UNSCH PRN IV PUSH 04/22/17 15:45 (Jo-Ann-Colace) 1 tab BID PO 04/22/17 21:00 04/27/17 22:24 (Milk Of Magnesia Liq) 30 ml Q12H PRN PO 04/22/17 15:45 (Senokot) 17.2 mg Q12H PRN PO 04/22/17 15:45 (Dulcolax Supp) 10 mg DAILY PRN RECTAL 04/22/17 15:45 (Lactulose Liq) 30 ml DAILY PRN PO 04/22/17 15:45 (Lac-Hydrin 12% Lotion) 1 applic BID TOPICAL 04/22/17 21:00 04/28/17 08:39 (Xanax) 0.5 mg Q8H PRN PO 04/22/17 16:00 04/27/17 00:54 (Nitrostat Sl) 0.4 mg Q5MIN PRN SL 04/22/17 16:00 (risperDAL) 0.5 mg Q12HR PO 04/22/17 21:00 04/27/17 10:32 (Sodium Chloride) 1 gm DAILY PO 04/23/17 09:00 04/28/17 08:39 (Lopressor) 50 mg BID PO 04/22/17 16:15 04/28/17 08:39 (Tylenol) 650 mg Q4H PRN PO 04/23/17 15:30 04/23/17 16:22 (Benadryl) 25 mg Q4H PRN PO 04/23/17 15:30 (Ativan Inj) 1 mg Q2H PRN IV PUSH 04/24/17 01:15 (Cardizem Cd) 240 mg HS PO 04/24/17 21:00 04/27/17 22:14 (Tylenol) 650 mg Q4H PRN PO 04/25/17 04:15 04/25/17 06:22 (Protonix) 40 mg DAILY PO 04/27/17 09:00 04/28/17 08:38 A/P Problem List: (1) Atrial fibrillation with rapid ventricular response ICD Code: I48.91 - Unspecified atrial fibrillation Status: Resolved (2) Anemia ICD Code: D64.9 - Anemia, unspecified Status: Acute (3) Acute renal failure ICD Code: N17.9 - Acute kidney failure, unspecified Status: Resolved Assessment and Plan This is a 71-year-old female with history of atrial fibrillation presenting with anxiety/hallucinations, found to be in atrial fibrillation with RVR Atrial fibrillation with RVR-after 2 boluses of Cardizem IV, no response, start Cardizem drip. Restart metoprolol and Cardizem per home dose. Hold Coumadin for now given INR. Possible etiology may be dehydration versus anemia. TSH is elevated, check free T3 and free T4. Patient not in heart failure. Continue serial troponins and EKG. 04/23 TSH elevated but Free t4 normal, likely euthyroid sick syndrome. Troponins negative x5. Hold Coumadin for now given hemoglobin drop. Continue metoprolol and Cardizem. Will give an extra dose of 120 since patient still on Cardizem gtt. 04/24 Will increase Cardizem dose to 240 mg. Heart rate better controlled. Discussed with rn titrate cardizem drip to off. 04/25 continue Cardizem at 240 mg by mouth at bedtime. Her rate is controlled. DC IV Cardizem. 04/27 Rate controlled. Continue PO Cardizem. Hypertension-controlled, restart metoprolol and Cardizem, hold lisinopril for now given elevated creatinine Acute renal failure-could be prerenal, previous GFR 60 in January 2017, presently in the 30s. Received 1 L of fluids, we'll continue 1 more liter. Recheck BMP tomorrow. Check urinalysis. Hold Lasix and lisinopril 04/23 SARAI resolved after IVF administration. Hallucinations-was allegedly told she has UTI in the past 3 weeks, presently no urinary symptoms, check urinalysis. No antibiotics for now, no leukocytosis. Continue her risperidone and Xanax for now. Anemia-hemoglobin is 10 in January 2017, last colonoscopy was 3 years ago, recheck CBC, if with significant drop, may need transfusion. Consult GI if with further drop. Otherwise if hemoglobin remains stable, workup can be done as outpatient if with time the outpatient follow-up. 04/23 hemoglobin trending down and 7.5 today. GI consulted - transfuse 2 units of PRBC. Case discussed with Dr Pabon - possible EGD/colonoscopy friday since INR 2.5 today. Hold Coumadin and continue to monitor PT/INR. 04/24 Sp transfusion of 2 units of PRBC with appropriate hemoglobin response. Hemoglobin 9.5. For EGD and colonoscopy on friday. Continue to monitor CBC and transfuse as needed for hemoglobin less than 8 if active bleeding or less than 7 or symptomatic anemia. 04/25 the patient is status post EGD and colonoscopy. EGD showed gastritis and esophagitis. Continue PPI. Colonoscopy was incomplete and will be repeated after barium enema in a.m. 04/26 Barium enema within normal limits to the level of the hepatic flexure. Cecum not well related due to the patient's limited mobility during the exam. Discussed the case with gastroenterology and will order a CT abdomen and pelvis with IV contrast. 04/28 KUB obtained earlier today showed a significant residual monitor barium contrast throughout the colon and rectum which would result in significant artifact with the patient undergo CT scan. MiraLAX was prescribed so the patient could have bowel movements and clear out the barium. CT abdomen and pelvis still pending. Toxic Encephalopathy The patient is lethargic but arousable. Patient was given IV Ativan last night for alcohol withdrawal. There are no signs of alcohol withdrawal at this time. I will hold on giving any further IV Ativan since patient has been lethargic for most of the day. We'll monitor neurological status. The patient actually woke up after being seen by me. 04/25 encephalopathy likely toxic. Now resolved. Per patient, she has advanced directives, DNR/DNI Per patient, she lives by herself, ambulatory. No anticipated needs for discharge for now UTI: UA (+), urine culture pending. Started on IV Rocephin. 04/24 Urine culture negative, Rocephin discontinued. Urinary retention. Diallo catheter placed. Start voiding trials in am. Will Rx Flomax. Discharge Planning Discharge pending CT abdomen and pelvis and GI clearance. Problem Qualifiers (1) Anemia: Qualified Codes: D64.9 - Anemia, unspecified (2) Acute renal failure: Qualified Codes: N17.9 - Acute kidney failure, unspecified Lee Cabrera MD Apr 28, 2017 16:57
[2017-04-28] MEDS ORDERED: TAMSULOSIN HCL 0.4 MG CAP PO ONE (17:00)
[2017-04-28 20:00] VITALS: BP 106/71; PULSE 104; PULSE 94; RESP 19; TEMP 97.8; O2SAT 99
[2017-04-28] MEDS: DILTIAZEM-CD 240 MG CAP ER PO SCH (21:38)
[2017-04-29] VITALS: BP 116/68; PULSE 108; PULSE 95; RESP 18; TEMP 97.4; O2SAT 99
[2017-04-29] MEDS: ACETAMINOPHEN 325 MG TAB PO PRN ×2 (00:56→22:21)
[2017-04-29 04:00] VITALS: BP 127/65; PULSE 84; PULSE 92; RESP 18; TEMP 97.7; O2SAT 99
[2017-04-29 08:00] VITALS: BP 131/62; PULSE 79; PULSE 95; RESP 20; TEMP 97.5; O2SAT 98
[2017-04-29] MEDS: risperiDONE 0.5 MG TAB PO SCH ×2 (09:00→21:00)
[2017-04-29] MEDS ORDERED: DILT240C44 PO (09:28)
[2017-04-29] MEDS ORDERED: TAMS5CAP PO (09:28)
--- NOTE | 2017-04-29 09:29 | HHI.DCPOC ---
Discharge Care Plan Diagnosis: (1) Anemia (2) Acute renal failure (3) Atrial fibrillation with rapid ventricular response (4) Encephalopathy, toxic (5) Urinary retention Goals to Promote Your Health * To prevent worsening of your condition and complications * To maintain your health at the optimal level Directions to Meet Your Goals Take your medications as prescribed Follow your dietary instruction Follow activity as directed Keep your appointments as scheduled Take your immunizations and boosters as scheduled If your symptoms worsen call your PCP, if no PCP go to Urgent Care Center or Emergency Room Smoking is Dangerous to Your Health. Avoid second hand smoke Call the 24-hour hour crisis hotline for domestic abuse at Lee Cabrera MD Apr 29, 2017 09:29
[2017-04-29] MEDS ORDERED: WARFARIN SOD 2 MG TAB PO SCH (09:45)
[2017-04-29] MEDS: SODIUM CHLORIDE 0.9% FLUSH 10 ML FLUSH IV FLUSH SCH ×2 (10:10→22:21)
[2017-04-29] MEDS: METOPROLOL TARTRATE 50 MG TAB PO SCH ×2 (10:11→22:19)
[2017-04-29] MEDS: TAMSULOSIN HCL 0.4 MG CAP PO SCH (10:11)
[2017-04-29] MEDS: SODIUM CHLORIDE 1 GRAM TAB PO SCH (10:11)
[2017-04-29] MEDS: PANTOPRAZOLE SOD 40 MG DELAYED RELEASE TAB PO SCH (10:11)
[2017-04-29] MEDS: DOCUSATE SODIUM 50 MG/SENNA 8.6 MG TAB PO SCH ×2 (10:11→22:20)
--- NOTE | 2017-04-29 10:13 | RADRPT ---
EXAM DATE/TIME: 04/29/2017 09:38 [facility] COMPARISON: ABDOMEN KUB ONLY, April 28, 2017, 8:53. INDICATIONS : Evaluate for residual barium MEDICAL HISTORY : Carcinoma, breast. Hypertension A-fib, anemia SURGICAL HISTORY : Tonsillectomy. Hysterectomy. Tubal ligation. ENCOUNTER: Subsequent ACUITY: 1 week PAIN SCORE: 0/10 LOCATION: Bilateral abdomen FINDINGS: 2 supine frontal views of the abdomen continue to demonstrate a large amount of oral contrast materia l throughout the colon and rectum from the patient's recent barium enema. Given the amount of contras t present there will likely be significant artifact on CT. The surrounding structures demonstrate no significant abnormality. CONCLUSION: Significant residual oral contrast remains present within the colon and rectum. This will likely caus e significant artifact if CT scan is performed. If the CT is not emergent, suggest laxative with atte mpt at CT scan later today or tomorrow. Selvin Camargo MD on April 29, 2017 at 10:09 Board Certified Radiologist. This report was verified electronically.
[2017-04-29] MEDS: LACTIC ACID (AMMONIUM LACTATE) 12% LOTION 225 GM BTL TOPICAL SCH ×2 (10:16→22:20)
[2017-04-29 12:00] VITALS: BP 129/72; PULSE 100; PULSE 88; RESP 21; TEMP 97.5; O2SAT 98
[2017-04-29 13:51] LABS: INTERNATIONAL NORMALIZED RATIO 1.4 RATIO; PROTHROMBIN TIME - PATIENT 13.7 SEC (9.8-11.6)
[2017-04-29] MEDS ORDERED: POLYETHYLENE GLYCOL 17 GM PKG PO ONE ×2 (14:15→15:00)
--- NOTE | 2017-04-29 14:23 | HHI.PR ---
Subjective Remarks Patient denies cp/sob. Denies melena or hematochezia. Objective Vitals Vital Signs Date Time Temp Pulse Resp B/P (MAP) Pulse Ox O2 Delivery O2 Flow Rate FiO2 04/29/17 12:00 88 04/29/17 12:00 97.5 100 21 129/72 (91) 98 04/29/17 12:00 Room Air 04/29/17 08:00 79 04/29/17 08:00 97.5 95 20 131/62 (85) 98 04/29/17 08:00 Room Air 04/29/17 04:00 84 04/29/17 04:00 97.7 92 18 127/65 (85) 99 04/29/17 00:00 108 04/29/17 00:00 97.4 95 18 116/68 (84) 99 04/28/17 20:00 104 04/28/17 20:00 Room Air 04/28/17 20:00 97.8 94 19 106/71 (83) 99 04/28/17 16:00 97.4 96 17 127/67 (87) 100 04/28/17 16:00 100 I/O 04/28/17 04/28/17 04/28/17 04/29/17 04/29/17 04/29/17 07:00 15:00 23:00 07:00 15:00 23:00 Intake Total 480 ml 1920 ml 720 ml Output Total 650 ml 700 ml Balance -170 ml 1920 ml 20 ml Intake Oral 480 ml 1920 ml 720 ml Output Urine Total 650 ml 700 ml # Voids 2 # Bowel Movements 0 1 0 Result Diagram: 04/27/17 0600 04/28/17 0415 Imaging Last Impressions Abdomen X-Ray 04/29/17 0859 Signed Impressions: Service Date/Time: Saturday, April 29, 2017 09:38 - CONCLUSION: Significant residual oral contrast remains present within the colon and rectum. This will likely cause significant artifact if CT scan is performed. If the CT is not emergent, suggest laxative with attempt at CT scan later today or tomorrow. Selvin Camargo MD Barium Enema 04/26/17 0000 Signed Impressions: Service Date/Time: Wednesday, April 26, 2017 10:28 - CONCLUSION: Single contrast barium enema within normal limits to the level of the hepatic flexure. Cecum is not well evaluated due to patient's limited mobility during the exam. Trenton Turner MD Abdomen Ultrasound 04/24/17 0000 Signed Impressions: Service Date/Time: April 07:52 - CONCLUSION: 1. The liver is enlarged with increased echogenicity and coarse echotexture. There is no focal mass or ascites. Findings are nonspecific and could indicate hepatocellular disease. 2. The spleen is at the upper limits of normal in size. 3. Abnormal gallbladder with wall thickening and small amount pericholecystic fluid. There is a single small echogenic foci which did not move or shadow and may represent a small polyp. There is no evidence of biliary obstruction. There was a negative sonographic Bazan's sign. 4. Small bilateral pleural effusions. Gigi Montoya MD Chest X-Ray 04/22/17 1248 Signed Impressions: Service Date/Time: Saturday, April 22, 2017 14:05 - CONCLUSION: No acute disease. Selvin Nicole MD Objective Remarks AAOx3, NAD Pale conjunctiva and skin Clear Lungs BL S1S2 tachycardic - irregularly irregular. Abdomen soft, nt, nd no edema in lower extremities Procedures Status post EGD/colonoscopy. Medications and IVs Current Medications Medications (Trade) Dose Ordered Sig/Karolina Route Start Time Stop Time Status Last Admin Diltiazem HCl 125 mg/Sodium Chloride 125 ml @ 5 mls/hr TITRATE PRN IV 04/22/17 14:30 04/25/17 00:24 (NS Flush) 2 ml UNSCH PRN IV FLUSH 04/22/17 15:45 (NS Flush) 2 ml BID IV FLUSH 04/22/17 21:00 04/29/17 10:10 (Tylenol) 650 mg Q4H PRN PO 04/22/17 15:45 04/28/17 10:44 (Narcan Inj) 0.4 mg UNSCH PRN IV PUSH 04/22/17 15:45 (Jo-Ann-Colace) 1 tab BID PO 04/22/17 21:00 04/29/17 10:11 (Milk Of Magnesia Liq) 30 ml Q12H PRN PO 04/22/17 15:45 (Senokot) 17.2 mg Q12H PRN PO 04/22/17 15:45 (Dulcolax Supp) 10 mg DAILY PRN RECTAL 04/22/17 15:45 (Lactulose Liq) 30 ml DAILY PRN PO 04/22/17 15:45 (Lac-Hydrin 12% Lotion) 1 applic BID TOPICAL 04/22/17 21:00 04/29/17 10:16 (Xanax) 0.5 mg Q8H PRN PO 04/22/17 16:00 04/27/17 00:54 (Nitrostat Sl) 0.4 mg Q5MIN PRN SL 04/22/17 16:00 (risperDAL) 0.5 mg Q12HR PO 04/22/17 21:00 04/27/17 10:32 (Sodium Chloride) 1 gm DAILY PO 04/23/17 09:00 04/29/17 10:11 (Lopressor) 50 mg BID PO 04/22/17 16:15 04/29/17 10:11 (Tylenol) 650 mg Q4H PRN PO 04/23/17 15:30 04/23/17 16:22 (Benadryl) 25 mg Q4H PRN PO 04/23/17 15:30 (Ativan Inj) 1 mg Q2H PRN IV PUSH 04/24/17 01:15 (Cardizem Cd) 240 mg HS PO 04/24/17 21:00 04/28/17 21:38 (Tylenol) 650 mg Q4H PRN PO 04/25/17 04:15 04/29/17 00:56 (Protonix) 40 mg DAILY PO 04/27/17 09:00 04/29/17 10:11 (Flomax) 0.4 mg DAILY PO 04/29/17 09:00 04/29/17 10:11 (Coumadin) 2.5 mg DAILY@1600 PO 04/29/17 16:00 (Miralax) 17 gm ONCE ONCE PO 04/29/17 15:00 04/29/17 15:01 A/P Problem List: (1) Atrial fibrillation with rapid ventricular response ICD Code: I48.91 - Unspecified atrial fibrillation Status: Resolved (2) Anemia ICD Code: D64.9 - Anemia, unspecified Status: Acute (3) Acute renal failure ICD Code: N17.9 - Acute kidney failure, unspecified Status: Resolved Assessment and Plan This is a 71-year-old female with history of atrial fibrillation presenting with anxiety/hallucinations, found to be in atrial fibrillation with RVR Atrial fibrillation with RVR-after 2 boluses of Cardizem IV, no response, start Cardizem drip. Restart metoprolol and Cardizem per home dose. Hold Coumadin for now given INR. Possible etiology may be dehydration versus anemia. TSH is elevated, check free T3 and free T4. Patient not in heart failure. Continue serial troponins and EKG. 04/23 TSH elevated but Free t4 normal, likely euthyroid sick syndrome. Troponins negative x5. Hold Coumadin for now given hemoglobin drop. Continue metoprolol and Cardizem. Will give an extra dose of 120 since patient still on Cardizem gtt. 04/24 Will increase Cardizem dose to 240 mg. Heart rate better controlled. Discussed with rn titrate cardizem drip to off. 04/25 continue Cardizem at 240 mg by mouth at bedtime. Her rate is controlled. DC IV Cardizem. 04/27 Rate controlled. Continue PO Cardizem. Hypertension-controlled, restart metoprolol and Cardizem, hold lisinopril for now given elevated creatinine Acute renal failure-could be prerenal, previous GFR 60 in January 2017, presently in the 30s. Received 1 L of fluids, we'll continue 1 more liter. Recheck BMP tomorrow. Check urinalysis. Hold Lasix and lisinopril 04/23 SARAI resolved after IVF administration. Hallucinations-was allegedly told she has UTI in the past 3 weeks, presently no urinary symptoms, check urinalysis. No antibiotics for now, no leukocytosis. Continue her risperidone and Xanax for now. Anemia-hemoglobin is 10 in January 2017, last colonoscopy was 3 years ago, recheck CBC, if with significant drop, may need transfusion. Consult GI if with further drop. Otherwise if hemoglobin remains stable, workup can be done as outpatient if with time the outpatient follow-up. 04/23 hemoglobin trending down and 7.5 today. GI consulted - transfuse 2 units of PRBC. Case discussed with Dr Pabon - possible EGD/colonoscopy friday since INR 2.5 today. Hold Coumadin and continue to monitor PT/INR. 04/24 Sp transfusion of 2 units of PRBC with appropriate hemoglobin response. Hemoglobin 9.5. For EGD and colonoscopy on friday. Continue to monitor CBC and transfuse as needed for hemoglobin less than 8 if active bleeding or less than 7 or symptomatic anemia. 04/25 the patient is status post EGD and colonoscopy. EGD showed gastritis and esophagitis. Continue PPI. Colonoscopy was incomplete and will be repeated after barium enema in a.m. 04/26 Barium enema within normal limits to the level of the hepatic flexure. Cecum not well related due to the patient's limited mobility during the exam. Discussed the case with gastroenterology and will order a CT abdomen and pelvis with IV contrast. 04/28 KUB obtained earlier today showed a significant residual monitor barium contrast throughout the colon and rectum which would result in significant artifact with the patient undergo CT scan. MiraLAX was prescribed so the patient could have bowel movements and clear out the barium. CT abdomen and pelvis still pending. 04/29 KUB this am still shows Barium in descending colon. Will order Miralax and a Flleet enema to help clean out Barium from GI tract. Repeat KUB later today and if clear then CT can be done. Discussed with CT department. Toxic Encephalopathy The patient is lethargic but arousable. Patient was given IV Ativan last night for alcohol withdrawal. There are no signs of alcohol withdrawal at this time. I will hold on giving any further IV Ativan since patient has been lethargic for most of the day. We'll monitor neurological status. The patient actually woke up after being seen by me. 04/25 encephalopathy likely toxic. Now resolved. Per patient, she has advanced directives, DNR/DNI Per patient, she lives by herself, ambulatory. No anticipated needs for discharge for now UTI: UA (+), urine culture pending. Started on IV Rocephin. 04/24 Urine culture negative, Rocephin discontinued. Urinary retention. Carranza catheter placed. 04/29 DC carranza today, void trials. Discharge Planning Discharge pending CT abdomen and pelvis, resolution of urinary retention. Problem Qualifiers (1) Anemia: Qualified Codes: D64.9 - Anemia, unspecified (2) Acute renal failure: Qualified Codes: N17.9 - Acute kidney failure, unspecified Lee Cabrera MD Apr 29, 2017 14:23
[2017-04-29] MEDS: WARFARIN SOD 2.5 MG TAB PO SCH (15:32)
[2017-04-29 16:00] VITALS: BP 129/65; PULSE 96; PULSE 99; RESP 21; TEMP 97.5; O2SAT 98
[2017-04-29] MEDS ORDERED: WARFARIN SOD 2.5 MG TAB PO SCH (16:00)
--- NOTE | 2017-04-29 18:37 | RADRPT ---
EXAM DATE/TIME: 04/29/2017 18:08 [facility] COMPARISON: ABDOMEN KUB ONLY, April 29, 2017, 9:38. INDICATIONS : Evaluate for residual contrast in colon. MEDICAL HISTORY : Carcinoma, breast. Hypertension A-fib, anemia SURGICAL HISTORY : Tonsillectomy. Hysterectomy. Tubal ligation ENCOUNTER: Subsequent ACUITY: 1 week PAIN SCORE: 1/10 LOCATION: Bilateral abdomen. FINDINGS: 2 supine frontal views of the abdomen show persistent barium throughout the colon. It is unchanged in position from the prior study. No dilated loops of bowel observed. Barium is seen to the level of th e rectal vault. CONCLUSION: Significant residual barium throughout the colon. This will generate beam hardening artifact on CT. Vitor Herrera Jr., MD on April 29, 2017 at 18:32 Board Certified Radiologist. This report was verified electronically.
[2017-04-29 20:00] VITALS: BP 121/62; PULSE 110; PULSE 117; RESP 18; TEMP 97.7; O2SAT 97
[2017-04-29] MEDS: DILTIAZEM-CD 240 MG CAP ER PO SCH (22:19)
[2017-04-30] VITALS (10 sets, daily range): BP systolic 104–136; BP diastolic 59–81; PULSE 66–109; RESP 16–18; TEMP 97.2–97.7; O2SAT 96–99
[2017-04-30] MEDS: TAMSULOSIN HCL 0.4 MG CAP PO SCH (08:58)
[2017-04-30] MEDS: SODIUM CHLORIDE 1 GRAM TAB PO SCH (08:58)
[2017-04-30] MEDS: PANTOPRAZOLE SOD 40 MG DELAYED RELEASE TAB PO SCH (08:58)
[2017-04-30] MEDS: DOCUSATE SODIUM 50 MG/SENNA 8.6 MG TAB PO SCH ×2 (08:58→21:00)
[2017-04-30] MEDS: risperiDONE 0.5 MG TAB PO SCH ×2 (08:58→21:00)
[2017-04-30] MEDS: METOPROLOL TARTRATE 50 MG TAB PO SCH ×2 (08:58→21:23)
[2017-04-30] MEDS: LACTIC ACID (AMMONIUM LACTATE) 12% LOTION 225 GM BTL TOPICAL SCH ×2 (08:59→21:24)
[2017-04-30] MEDS: ACETAMINOPHEN 325 MG TAB PO PRN ×2 (09:09→16:08)
[2017-04-30] MEDS: SODIUM CHLORIDE 0.9% FLUSH 10 ML FLUSH IV FLUSH SCH ×2 (09:10→21:24)
[2017-04-30] MEDS ORDERED: POLYETHYLENE GLYCOL 17 GM PKG PO ONE (11:30)
[2017-04-30] MEDS ORDERED: SOD PHOSPHATE/SOD BIPHOSPHATE (ADULT) ENEMA 133ML RECTAL ONE (12:30)
--- NOTE | 2017-04-30 13:08 | HHI.PR ---
Subjective Remarks Patient had several bowel movements last night. Denies fevers or chills. Objective Vitals Vital Signs Date Time Temp Pulse Resp B/P (MAP) Pulse Ox O2 Delivery O2 Flow Rate FiO2 04/30/17 12:27 97.5 85 17 111/59 (76) 99 04/30/17 12:00 84 04/30/17 12:00 Room Air 04/30/17 08:49 97.7 94 17 136/75 (95) 97 04/30/17 08:00 87 04/30/17 08:00 Room Air 04/30/17 04:00 66 04/30/17 04:00 97.5 89 16 125/62 (83) 97 04/30/17 00:00 108 04/30/17 00:00 97.5 84 16 104/62 (76) 96 04/29/17 20:00 117 04/29/17 20:00 97.7 110 18 121/62 (81) 97 04/29/17 20:00 Room Air 04/29/17 17:00 Room Air 04/29/17 16:00 97.5 99 21 129/65 (86) 98 04/29/17 16:00 96 I/O 04/29/17 04/29/17 04/29/17 04/30/17 04/30/17 04/30/17 07:00 15:00 23:00 07:00 15:00 23:00 Intake Total 720 ml 480 ml Output Total 700 ml 2200 ml Balance 20 ml 480 ml -2200 ml Intake Oral 720 ml 480 ml Output Urine Total 700 ml 2200 ml # Voids 1 2 # Bowel Movements 0 1 2 2 Result Diagram: 04/27/17 0600 04/28/17 0415 Imaging Last Impressions Abdomen X-Ray 04/29/17 1800 Signed Impressions: Service Date/Time: Saturday, April 29, 2017 18:08 - CONCLUSION: Significant residual barium throughout the colon. This will generate beam hardening artifact on CT. Vitor Herrera Jr., MD Barium Enema 04/26/17 0000 Signed Impressions: Service Date/Time: Wednesday, April 26, 2017 10:28 - CONCLUSION: Single contrast barium enema within normal limits to the level of the hepatic flexure. Cecum is not well evaluated due to patient's limited mobility during the exam. Trenton Turner MD Abdomen Ultrasound 04/24/17 0000 Signed Impressions: Service Date/Time: April 07:52 - CONCLUSION: 1. The liver is enlarged with increased echogenicity and coarse echotexture. There is no focal mass or ascites. Findings are nonspecific and could indicate hepatocellular disease. 2. The spleen is at the upper limits of normal in size. 3. Abnormal gallbladder with wall thickening and small amount pericholecystic fluid. There is a single small echogenic foci which did not move or shadow and may represent a small polyp. There is no evidence of biliary obstruction. There was a negative sonographic Bazan's sign. 4. Small bilateral pleural effusions. Gigi Montoya MD Chest X-Ray 04/22/17 1248 Signed Impressions: Service Date/Time: Saturday, April 22, 2017 14:05 - CONCLUSION: No acute disease. Selvin Nicole MD Objective Remarks AAOx3, NAD Pale conjunctiva and skin Clear Lungs BL S1S2 tachycardic - irregularly irregular. Abdomen soft, nt, nd no edema in lower extremities Procedures Status post EGD/colonoscopy. Medications and IVs Current Medications Medications (Trade) Dose Ordered Sig/Karolina Route Start Time Stop Time Status Last Admin Diltiazem HCl 125 mg/Sodium Chloride 125 ml @ 5 mls/hr TITRATE PRN IV 04/22/17 14:30 04/25/17 00:24 (NS Flush) 2 ml UNSCH PRN IV FLUSH 04/22/17 15:45 (NS Flush) 2 ml BID IV FLUSH 04/22/17 21:00 04/30/17 09:10 (Tylenol) 650 mg Q4H PRN PO 04/22/17 15:45 04/28/17 10:44 (Narcan Inj) 0.4 mg UNSCH PRN IV PUSH 04/22/17 15:45 (Jo-Ann-Colace) 1 tab BID PO 04/22/17 21:00 04/30/17 08:58 (Milk Of Magnesia Liq) 30 ml Q12H PRN PO 04/22/17 15:45 (Senokot) 17.2 mg Q12H PRN PO 04/22/17 15:45 (Dulcolax Supp) 10 mg DAILY PRN RECTAL 04/22/17 15:45 (Lactulose Liq) 30 ml DAILY PRN PO 04/22/17 15:45 (Lac-Hydrin 12% Lotion) 1 applic BID TOPICAL 04/22/17 21:00 04/30/17 08:59 (Xanax) 0.5 mg Q8H PRN PO 04/22/17 16:00 04/27/17 00:54 (Nitrostat Sl) 0.4 mg Q5MIN PRN SL 04/22/17 16:00 (risperDAL) 0.5 mg Q12HR PO 04/22/17 21:00 04/27/17 10:32 (Sodium Chloride) 1 gm DAILY PO 04/23/17 09:00 04/30/17 08:58 (Lopressor) 50 mg BID PO 04/22/17 16:15 04/30/17 08:58 (Tylenol) 650 mg Q4H PRN PO 04/23/17 15:30 04/23/17 16:22 (Benadryl) 25 mg Q4H PRN PO 04/23/17 15:30 (Ativan Inj) 1 mg Q2H PRN IV PUSH 04/24/17 01:15 (Cardizem Cd) 240 mg HS PO 04/24/17 21:00 04/29/17 22:19 (Tylenol) 650 mg Q4H PRN PO 04/25/17 04:15 04/30/17 09:09 (Protonix) 40 mg DAILY PO 04/27/17 09:00 04/30/17 08:58 (Flomax) 0.4 mg DAILY PO 04/29/17 09:00 04/30/17 08:58 (Coumadin) 2.5 mg DAILY@1600 PO 04/29/17 16:00 04/29/17 15:32 A/P Problem List: (1) Atrial fibrillation with rapid ventricular response ICD Code: I48.91 - Unspecified atrial fibrillation Status: Resolved (2) Anemia ICD Code: D64.9 - Anemia, unspecified Status: Acute (3) Acute renal failure ICD Code: N17.9 - Acute kidney failure, unspecified Status: Resolved Assessment and Plan This is a 71-year-old female with history of atrial fibrillation presenting with anxiety/hallucinations, found to be in atrial fibrillation with RVR Atrial fibrillation with RVR-after 2 boluses of Cardizem IV, no response, start Cardizem drip. Restart metoprolol and Cardizem per home dose. Hold Coumadin for now given INR. Possible etiology may be dehydration versus anemia. TSH is elevated, check free T3 and free T4. Patient not in heart failure. Continue serial troponins and EKG. 04/23 TSH elevated but Free t4 normal, likely euthyroid sick syndrome. Troponins negative x5. Hold Coumadin for now given hemoglobin drop. Continue metoprolol and Cardizem. Will give an extra dose of 120 since patient still on Cardizem gtt. 04/24 Will increase Cardizem dose to 240 mg. Heart rate better controlled. Discussed with rn titrate cardizem drip to off. 04/25 continue Cardizem at 240 mg by mouth at bedtime. Her rate is controlled. DC IV Cardizem. 04/27 Rate controlled. Continue PO Cardizem. Hypertension-controlled, restart metoprolol and Cardizem, hold lisinopril for now given elevated creatinine Acute renal failure-could be prerenal, previous GFR 60 in January 2017, presently in the 30s. Received 1 L of fluids, we'll continue 1 more liter. Recheck BMP tomorrow. Check urinalysis. Hold Lasix and lisinopril 04/23 SARAI resolved after IVF administration. Hallucinations-was allegedly told she has UTI in the past 3 weeks, presently no urinary symptoms, check urinalysis. No antibiotics for now, no leukocytosis. Continue her risperidone and Xanax for now. Anemia-hemoglobin is 10 in January 2017, last colonoscopy was 3 years ago, recheck CBC, if with significant drop, may need transfusion. Consult GI if with further drop. Otherwise if hemoglobin remains stable, workup can be done as outpatient if with time the outpatient follow-up. 04/23 hemoglobin trending down and 7.5 today. GI consulted - transfuse 2 units of PRBC. Case discussed with Dr Pabon - possible EGD/colonoscopy friday since INR 2.5 today. Hold Coumadin and continue to monitor PT/INR. 04/24 Sp transfusion of 2 units of PRBC with appropriate hemoglobin response. Hemoglobin 9.5. For EGD and colonoscopy on friday. Continue to monitor CBC and transfuse as needed for hemoglobin less than 8 if active bleeding or less than 7 or symptomatic anemia. 04/25 the patient is status post EGD and colonoscopy. EGD showed gastritis and esophagitis. Continue PPI. Colonoscopy was incomplete and will be repeated after barium enema in a.m. 04/26 Barium enema within normal limits to the level of the hepatic flexure. Cecum not well related due to the patient's limited mobility during the exam. Discussed the case with gastroenterology and will order a CT abdomen and pelvis with IV contrast. 04/28 KUB obtained earlier today showed a significant residual monitor barium contrast throughout the colon and rectum which would result in significant artifact with the patient undergo CT scan. MiraLAX was prescribed so the patient could have bowel movements and clear out the barium. CT abdomen and pelvis still pending. 04/29 KUB this am still shows Barium in descending colon. Will order Miralax and a Flleet enema to help clean out Barium from GI tract. Repeat KUB later today and if clear then CT can be done. Discussed with CT department. 04/30 the patient still had significant barium filled the colon on KUB. I will order fleets enema and give another dose of MiraLAX. Repeat KUB later today at 1530 hrs. As per GI the patient will need a CT colonography as an outpatient. Toxic Encephalopathy The patient is lethargic but arousable. Patient was given IV Ativan last night for alcohol withdrawal. There are no signs of alcohol withdrawal at this time. I will hold on giving any further IV Ativan since patient has been lethargic for most of the day. We'll monitor neurological status. The patient actually woke up after being seen by me. 04/25 encephalopathy likely toxic. Now resolved. Per patient, she has advanced directives, DNR/DNI Per patient, she lives by herself, ambulatory. No anticipated needs for discharge for now UTI: UA (+), urine culture pending. Started on IV Rocephin. 04/24 Urine culture negative, Rocephin discontinued. Urinary retention. Patient had a Diallo catheter placed, was started on Flomax. Diallo catheter was removed and patient is urinating well. Urinary retention resolved Discharge Planning Discharge pending CT abdomen and pelvis, resolution of urinary retention. Problem Qualifiers (1) Anemia: Qualified Codes: D64.9 - Anemia, unspecified (2) Acute renal failure: Qualified Codes: N17.9 - Acute kidney failure, unspecified Khan Avalos,Lee MD Apr 30, 2017 13:08
[2017-04-30] MEDS: WARFARIN SOD 2.5 MG TAB PO SCH (16:07)
--- NOTE | 2017-04-30 16:38 | RADRPT ---
EXAM DATE/TIME: 04/30/2017 16:24 [facility] COMPARISON: ABDOMEN KUB ONLY, April 29, 2017, 18:08. INDICATIONS : Evaluate residual barium. MEDICAL HISTORY : Carcinoma, breast. Hypertension A-fib, anemia. SURGICAL HISTORY : Tonsillectomy. Hysterectomy. Tubal ligation ENCOUNTER: Subsequent ACUITY: 1 week PAIN SCORE: 1/10 LOCATION: Bilateral abdomen. FINDINGS: Supine view of the abdomen was performed. The abdominal bowel gas pattern is normal. No abnormal ma sses, calcifications, or organomegaly is seen. The osseous structures are unremarkable. There is res idual contrast throughout the sigmoid colon portions of the descending colon but much less than on th e previous study. Small bowel is nondilated. CONCLUSION: Normal examination except residual contrast in the sigmoid and descending colon markedly improved fro m the previous study. Сергей Wheat MD on April 30, 2017 at 16:34 Board Certified Radiologist. This report was verified electronically.
[2017-04-30] MEDS ORDERED: DIATRIZOATE MEGLUM/DIATRIZOATE SOD 9 ML CUP PO ONE (17:15)
[2017-04-30] MEDS ORDERED: IOHEXOL 350 MG/ML 10 ML VIAL (for RAD DIAG) IVCONTRAST ONE (20:21)
--- NOTE | 2017-04-30 20:37 | RADRPT ---
EXAM DATE/TIME: 04/30/2017 20:10 [facility] COMPARISON: No previous studies available for comparison. INDICATIONS : Anemia. IV CONTRAST: 100 cc Omnipaque 350 (iohexol) IV ORAL CONTRAST: Prescribed oral contrast ingested. RADIATION DOSE: 16.45 CTDIvol (mGy) MEDICAL HISTORY : Carcinoma, breast. Cardiovascular disease Hypertension. SURGICAL HISTORY : ortho ENCOUNTER: Initial ACUITY: 4 - 6 days PAIN SCALE: 5/10 LOCATION: Bilateral abdomen TECHNIQUE: Volumetric scanning of the abdomen and pelvis was performed. Using automated exposure control and ad justment of the mA and/or kV according to patient size, radiation dose was kept as low as reasonably achievable to obtain optimal diagnostic quality images. DICOM format image data is available electro nically for review and comparison. FINDINGS: LOWER LUNGS: Tiny bilateral pleural effusions. There is mild passive atelectasis. LIVER: There is a lobulated contour to the liver. No mass or ductal dilatation. Tiny calcified gallstones wi thin an otherwise normal-appearing gallbladder. A sub-1 cm cyst seen involving segment 4. Portal vein is patent. SPLEEN: Normal size without lesion. PANCREAS: Within normal limits. KIDNEYS: Normal in size and shape. There is no mass, stone or hydronephrosis. ADRENAL GLANDS: Within normal limits. VASCULAR: There is no aortic aneurysm. BOWEL/MESENTERY: The stomach, small bowel, and colon demonstrate no acute abnormality. There is no free intraperitone al air or fluid. ABDOMINAL WALL: Within normal limits. RETROPERITONEUM: There is no lymphadenopathy. BLADDER: There is mild circumferential wall thickening of the urinary bladder. Mild stranding of the adjacent fat. A trace amount of air within the lumen. REPRODUCTIVE: Within normal limits. There is a 3.4 cm cyst involving the subcutaneous tissues of the dorsal soft ti ssues approaching the midline. INGUINAL: There is no lymphadenopathy or hernia. MUSCULOSKELETAL: Within normal limits for patient age. CONCLUSION: 1. Wall thickening of the urinary bladder suggesting acute cystitis. 2. Cirrhosis. 3. Cholelithiasis. 4. Sebaceous cyst involving the dorsal soft tissues approaching the buttocks. 5. Tiny bilateral pleural effusions with passive atelectasis. Vitor Herrera Jr., MD on April 30, 2017 at 20:32 Board Certified Radiologist. This report was verified electronically.
[2017-04-30] MEDS: DILTIAZEM-CD 240 MG CAP ER PO SCH (21:22)
[2017-05-01] VITALS (8 sets, daily range): BP systolic 104–121; BP diastolic 58–72; PULSE 81–112; RESP 18–21; TEMP 97.3–97.5; O2SAT 96–99
[2017-05-01] MEDS: ACETAMINOPHEN 325 MG TAB PO PRN ×2 (02:44→11:24)
[2017-05-01] MEDS ORDERED: KETOROLAC TROMETHAMINE 10 MG TAB PO ONE (05:15)
[2017-05-01] MEDS: LACTIC ACID (AMMONIUM LACTATE) 12% LOTION 225 GM BTL TOPICAL SCH (09:00)
[2017-05-01] MEDS: risperiDONE 0.5 MG TAB PO SCH (09:00)
[2017-05-01] MEDS: DOCUSATE SODIUM 50 MG/SENNA 8.6 MG TAB PO SCH (09:00)
[2017-05-01] MEDS: SODIUM CHLORIDE 1 GRAM TAB PO SCH (09:03)
[2017-05-01] MEDS: PANTOPRAZOLE SOD 40 MG DELAYED RELEASE TAB PO SCH (09:03)
[2017-05-01] MEDS: METOPROLOL TARTRATE 50 MG TAB PO SCH (09:03)
[2017-05-01] MEDS: SODIUM CHLORIDE 0.9% FLUSH 10 ML FLUSH IV FLUSH SCH (09:04)
[2017-05-01] MEDS: TAMSULOSIN HCL 0.4 MG CAP PO SCH (09:04)
--- NOTE | 2017-05-01 11:43 | HHI.FF ---
Face to Face Verification Diagnosis: (1) Urinary retention (2) Acute renal failure (3) Anemia (4) Atrial fibrillation with rapid ventricular response Physical Therapy Order: Evaluate and Treat Occupational Therapy Order: Evaluate and Treat Home Health Nursing Order: Medical education Nursing assessment with vital signs I have seen patient Gely Kang on 05/01/17. My clinical findings support the need for the requested home health care services because: Ltd mobility - disease progression Deconditioned w/ increased weakness I certify that my clinical findings support that this patient is homebound because: Unsteady gait/balance Unsafe to leave home unassisted Dana Ward MD May 01, 2017 11:43
[2017-05-01 12:28] LABS: INTERNATIONAL NORMALIZED RATIO 1.4 RATIO; PROTHROMBIN TIME - PATIENT 14.4 SEC (9.8-11.6)
[2017-05-01] MEDS: WARFARIN SOD 2.5 MG TAB PO SCH (14:17)
[2017-05-01] MEDS ORDERED: WARFARIN SOD 2 MG TAB PO ONE (16:00)
--- NOTE | 2017-05-01 19:31 | HHI.DS ---
Discharge Summary Admission Date Apr 22, 2017 at 15:34 Discharge Date: May 01, 2017 Admitting Diagnosis AF with RVR (1) Atrial fibrillation with rapid ventricular response ICD Code: I48.91 - Unspecified atrial fibrillation Status: Resolved (2) Anemia ICD Code: D64.9 - Anemia, unspecified Status: Acute (3) Acute renal failure ICD Code: N17.9 - Acute kidney failure, unspecified Status: Resolved Procedures Status post EGD/colonoscopy. Brief History - From Admission This is a 71-year-old female, , lives by herself, with past medical history significant for anxiety disorder, hypertension and atrial fibrillation being admitted for anxiety and hallucinations found to be in atrial fibrillation. Patient initially presented at [facility] 2 days ago, she left AGAINST MEDICAL ADVICE yesterday because of hallucinations and paranoia that the staff wanted to harm her. This morning, when she woke up, she was not feeling well, i.e. she feels very anxious and having hallucinations about a TV program happening in real life hence she decided to come to the hospital. She denies any fever, chills, dysuria, frequency, urgency nausea, vomiting, diarrhea, abdominal pain, chest pain, palpitations or shortness of breath. She further denies any bleeding, hematochezia, or melena. Her last colonoscopy was 3 years ago and was allegedly normal. She denies having chronic kidney disease. CBC/BMP: 04/27/17 0600 04/28/17 0415 Significant Findings Laboratory Tests Test 04/29/17 13:25 05/01/17 12:00 Prothrombin Time 13.7 SEC (9.8-11.6) 14.4 SEC (9.8-11.6) PE at Discharge AAOx3, NAD Pale conjunctiva and skin Clear Lungs BL S1S2 tachycardic - irregularly irregular. Abdomen soft, nt, nd no edema in lower extremities Hospital Course Patient admitted with atrial fibrillation with RVR hypertension, acute renal failure, anemia, treated with Cardizem iv switched to by mouth, GI consulted for anemia patient had an EGD and colonoscopy which showed gastritis and esophagitis prescribed PPI, barium enema has been done, GI to follow up as an outpatient, will need EGD in 3 months, patient may need CTcolonography per GI recs, Patient also was found to have a UTI treated with Rocephin. Patient cleared to resume her Coumadin, repeated INR today 1.4, given extra dose of Coumadin, repeat INR in a.m. and forward to PCP [id number] encounter performed with the patient on discharge day, as well as physical exam, summary of hospitalization course and postdischarge plan has been D/W the patient. D/W nurse D/W case supervisor. Discharge medications reviewed and printed and signed, post discharge follow up visit with PCP and other specialist as well as Brief hospital course and discharge summary has been placed. Pt Condition on Discharge: Fair Discharge Disposition: Disch w/ Home Health Serv Discharge Time: > 30 minutes Discharge Instructions DIET: Follow Instructions for: Heart Healthy Diet, Coumadin (Warfarin) Diet Activities you can perform: See Additionl Instruction Other Activity Instructions: pt recs Follow up Referrals: Appointment for Follow Up @ [facility] - 2 Weeks PCP Follow-up - 1 Week PCP Follow-up @ [facility]/DETENTION/ with [facility] New Orders: PT/INR - 2 Days New Medications: Diltiazem CD 24 HR (Diltiazem CD 24 HR) 240 Mg Caper 240 MG PO HS for heart rate control, #31 CAP Tamsulosin (Flomax) 0.4 Mg Cap 0.4 MG PO DAILY for urinary retention, #14 CAP Continued Medications: Alprazolam (Alprazolam) 0.5 Mg Tab 0.5 MG PO Q8H PRN for ANXIETY, TAB 0 Refills Furosemide (Furosemide) 40 Mg Tab 40 MG PO DAILY, #30 TAB 0 Refills Metoprolol Tartrate (Metoprolol Tartrate) 50 Mg Tab 50 MG PO BID, #60 TAB 0 Refills Nitroglycerin SL (Nitroglycerin SL) 0.4 Mg Subl 0.4 MG SL DIRECTED PRN for CHEST PAIN, #100 TAB.SL 0 Refills ONE TABLET UNDER THE TONGUE NEEDED FOR CHEST PAIN, MAY REPEAT EVERY FIVE MINUTES FOR A TOTAL OF 3 DOSES OR CALL 911 IF NO RELIEF Risperidone (Risperidone) 0.5 Mg Tab 0.5 MG PO Q12HR, #60 TAB 0 Refills Sodium Chloride (Sodium Chloride) 1 Gram Tab 1 GM PO DAILY for Electrolyte Replacement, TAB 0 Refills Warfarin (Jantoven) 2.5 Mg Tab 2.5 MG PO DAILY for Blood Clot Prevention, #30 TAB 0 Refills Discontinued Medications: Diltiazem (Diltiazem) 120 Mg Tab 120 MG PO HS for Angina, #120 TAB 0 Refills Lisinopril (Lisinopril) 5 Mg Tab 5 MG PO DAILY for Blood Pressure Management, #30 TAB 0 Refills Sulfamethoxazole-Trimethoprim (Bactrim DS) 800-160 Mg Tab 1 TAB PO BID for Infection, TAB 0 Refills Dana Ward MD May 01, 2017 19:31
== END 2017-05-01 15:16 | disposition home health service (06) | DRG 308 ==
LOC: NEPD 12:05 → NEDA 15:34 → N04B 18:49
PROVIDERS: ADMIT Hospitalist; ATTEND Hospitalist
PROC: 30233N1 Transfusion of Nonautologous Red Blood Cells into Peripheral Vein, Percutaneous Approach (ICD-10-PCS; 2017-04-23)
PROC: 0T9B70Z Drainage of Bladder with Drainage Device, Via Natural or Artificial Opening (ICD-10-PCS; 2017-04-23)
PROC: 0DJ08ZZ Inspection of Upper Intestinal Tract, Via Natural or Artificial Opening Endoscopic (ICD-10-PCS; principal; 2017-04-25 11:20)
PROC: 0DJD8ZZ Inspection of Lower Intestinal Tract, Via Natural or Artificial Opening Endoscopic (ICD-10-PCS; 2017-04-25 11:20)
DX: I48.2 Chronic atrial fibrillation (principal); G92 Toxic encephalopathy; N17.9 Acute kidney failure, unspecified; I10 Essential (primary) hypertension; D64.9 Anemia, unspecified; R33.9 Retention of urine, unspecified; E87.6 Hypokalemia; K29.70 Gastritis, unspecified, without bleeding; K20.9 Esophagitis, unspecified; K64.4 Residual hemorrhoidal skin tags; K64.8 Other hemorrhoids; K63.89 Other specified diseases of intestine; F41.1 Generalized anxiety disorder; E07.81 Sick-euthyroid syndrome; Z85.3 Personal history of malignant neoplasm of breast; Z79.01 Long term (current) use of anticoagulants
CPT/HCPCS: 36415; 36430; 71046; 74018; 74177; 74270; 76700; 80048; 80053; 81001; 82550; 82607; 82728; 82746; 83036; 83540; 83550; 83735; 84439; 84443; 84481; 84484; 85025; 85027; 85610; 85730; 86850; 86900; 86901; 86920; 87086; 93005; 96374; 96376; J0696; J1940; J2370; J3475; J7030; J7050; P9016; Q9963; Q9967

== ENCOUNTER 2017-07-20 20:04 | Emergency (ER) | payer MEDICARE, OTHER ==
[~2017-07-20] VITALS: Ht 165.1 cm; Wt 96.0 kg
[~2017-07-20 20:04] MED LIST: ALPR0.5T3 PO; DILT240C44 PO; FURO40TA PO; JANT2.5T PO; METO50TA PO; NITR1SUB3 SL; RISP0.5T2 PO; SODI1TAB PO; TAMS5CAP PO; WARF4TAB51 PO
[2017-07-20 20:23] VITALS: BP 143/83; PULSE 95; RESP 18; TEMP 98.2; O2SAT 100
[2017-07-20 20:26] VITALS: RESP 18
[2017-07-20] MEDS ORDERED: SODIUM CHLORIDE 0.9% FLUSH 10 ML FLUSH IV FLUSH PRN (20:30)
--- NOTE | 2017-07-20 20:35 | PD ---
HPI Chief Complaint: Edema Time Seen by Provider: 20:20 Travel History International Travel<30 days: No Contact w/Intl Traveler<30days: No Traveled to known affect area: No History of Present Illness HPI 71-year-old female with PMH of Kusum oliveira, on Coumadin presents to the ED for evaluation of worsening edema of the right lower extremity. Patient states that she fell onto the left hip approximately 1 month ago and has been minimally ambulatory secondary to pain in the area. She denies fever, chills, chest pain, palpitations, shortness of breath, abdominal pain, nausea, vomiting , numbness, tingling of the extremity. She states that she has a small wound on the left hip which she has been treating with topical antibiotics with no improvement of symptoms. She saw her primary care provider and had outpatient studies ordered but states that she was unable to complete them because she was unable to get on the x-ray table unassisted. Patient endorses recent treatment for UTI. She complains of a cramping sensation in the low back. She denies dysuria, hematuria. She states that she missed her morning medications today. She states that she is otherwise been compliant with her medications. She is followed by [facility]. PFSH Past Medical History Arthritis: Yes Atrial Fibrillation: Yes Anxiety: Yes Depression: Yes Heart Rhythm Problems: Yes Cancer: Yes (BILATERAL BREAST) Cardiovascular Problems: Yes Diminished Hearing: No Gastrointestinal Disorders: Yes Genitourinary: Yes Hypertension: Yes Insomnia: Yes Musculoskeletal: Yes Neurologic: Yes Psychiatric: Yes Immunizations Current: Yes Pneumonia: Yes Tetanus Vaccination: Unknown Influenza Vaccination: Yes Tubal Ligation: Yes Past Surgical History Gynecologic Surgery: Yes (tubiligation, hysterectomy) Hysterectomy: Yes Oral Surgery: Yes (tonsilectomy) Thoracic Surgery: Yes (clavicle resection) Tonsillectomy: Yes Other Surgery: Yes (BILATERAL MASTECTOMY, L CLAVICLE SX) Social History Alcohol Use: Yes (every other day) Tobacco Use: No Substance Use: No Allergies-Medications (Allergen,Severity, Reaction): Coded Allergies: No Known Allergies (Unverified , 07/20/17) Reported Meds & Prescriptions Reported Meds & Active Scripts Active Keflex (Cephalexin) 500 Mg Capsule 500 Mg PO Q8H Bactroban Topical (Mupirocin) 22 Gm Cream 1 Applic TOPICAL BID 7 Days Diltiazem CD 24 HR 240 Mg Caper 240 Mg PO HS Flomax (Tamsulosin HCl) 0.4 Mg Cap 0.4 Mg PO DAILY Reported Warfarin 2 Mg Tab 2 Mg PO DAILY Alprazolam 0.5 Mg Tab 0.5 Mg PO Q8H PRN Metoprolol Tartrate 50 Mg Tab 50 Mg PO BID Furosemide 40 Mg Tab 40 Mg PO DAILY Nitroglycerin SL (Nitroglycerin) 0.4 Mg Subl 0.4 Mg SL DIRECTED PRN ONE TABLET UNDER THE TONGUE NEEDED FOR CHEST PAIN, MAY REPEAT EVERY FIVE MINUTES FOR A TOTAL OF 3 DOSES OR CALL 911 IF NO RELIEF Risperidone 0.5 Mg Tab 0.5 Mg PO Q12HR Jantoven (Warfarin) 2.5 Mg Tab 2.5 Mg PO DAILY Sodium Chloride 1 Gram Tab 1 Gm PO DAILY Review of Systems Except as stated in HPI: all other systems reviewed are Neg Physical Exam Narrative GENERAL: Well-nourished, well-developed white female in no acute distress. SKIN: Focused skin assessment warm/dry. 4 x 2 cm abrasion over the left anterior hip. Localized erythema but no cellulitic changes noted. HEAD: Normocephalic. Atraumatic. EYES: No scleral icterus. No injection or drainage. NECK: Supple, trachea midline. No JVD or lymphadenopathy. CARDIOVASCULAR: Regular rate and rhythm without murmurs, gallops, or rubs. RESPIRATORY: Breath sounds clear and equal bilaterally. No accessory muscle use. GASTROINTESTINAL: Abdomen soft, non-tender, nondistended. Bowel sounds. MUSCULOSKELETAL: No cyanosis, or edema. FOCUSED RIGHT LOWER EXTREMITY EXAM: 2+ DP pulse. 2+ edema to the mid thigh. Homans sign positive. Patient retains full, active, painless R OM. Neurovascularly intact distally. BACK: Nontender without obvious deformity. No CVA tenderness. Data Data Last Documented VS Vital Signs Date Time Temp Pulse Resp B/P (MAP) Pulse Ox O2 Delivery O2 Flow Rate FiO2 07/20/17 20:26 18 07/20/17 20:23 98.2 95 143/83 (103) 100 Orders Orders Us Leg Venous Doppler (07/20/17 20:20) Hip, Uni(Ap&Lat) W Ap Pelvis (07/20/17 20:20) Complete Blood Count With Diff (07/20/17 20:20) Comprehensive Metabolic Panel (07/20/17 20:20) Prothrombin Time / Inr (Pt) (07/20/17 20:20) Act Partial Throm Time (Ptt) (07/20/17 20:20) Urinalysis - C+S If Indicated (07/20/17 20:20) Iv Access Insert/Monitor (07/20/17 20:20) Ecg Monitoring (07/20/17 20:20) Oximetry (07/20/17 20:20) Sodium Chloride 0.9% Flush (Ns Flush) (07/20/17 20:30) Electrocardiogram (07/20/17 20:20) Calcium Carbonate Chew (Tums Chew) (07/20/17 22:00) Cath For Specimen (07/20/17 22:47) Urine Culture (07/20/17 23:00) Ceftriaxone Inj (Rocephin Inj) (07/20/17 23:45) Labs Laboratory Tests Test 07/20/17 20:42 07/20/17 23:00 White Blood Count 5.4 TH/MM3 Red Blood Count 2.79 MIL/MM3 Hemoglobin 10.1 GM/DL Hematocrit 28.8 % Mean Corpuscular Volume 103.3 FL Mean Corpuscular Hemoglobin 36.3 PG Mean Corpuscular Hemoglobin Concent 35.2 % Red Cell Distribution Width 14.4 % Platelet Count 144 TH/MM3 Mean Platelet Volume 8.4 FL Neutrophils (%) (Auto) 54.4 % Lymphocytes (%) (Auto) 26.3 % Monocytes (%) (Auto) 15.6 % Eosinophils (%) (Auto) 3.0 % Basophils (%) (Auto) 0.7 % Neutrophils # (Auto) 2.9 TH/MM3 Lymphocytes # (Auto) 1.4 TH/MM3 Monocytes # (Auto) 0.8 TH/MM3 Eosinophils # (Auto) 0.2 TH/MM3 Basophils # (Auto) 0.0 TH/MM3 CBC Comment DIFF FINAL Differential Comment Prothrombin Time 19.6 SEC Prothromb Time International Ratio 1.9 RATIO Activated Partial Thromboplast Time 37.6 SEC Blood Urea Nitrogen 16 MG/DL Creatinine 0.91 MG/DL Random Glucose 89 MG/DL Total Protein 6.8 GM/DL Albumin 2.7 GM/DL Calcium Level 7.9 MG/DL Alkaline Phosphatase 87 U/L Aspartate Amino Transf (AST/SGOT) 27 U/L Alanine Aminotransferase (ALT/SGPT) 14 U/L Total Bilirubin 0.7 MG/DL Sodium Level 127 MEQ/L Potassium Level 3.6 MEQ/L Chloride Level 92 MEQ/L Carbon Dioxide Level 23.9 MEQ/L Anion Gap 11 MEQ/L Estimat Glomerular Filtration Rate 61 ML/MIN Urine Color YELLOW Urine Turbidity CLOUDY Urine pH 5.5 Urine Specific [place] 1.010 Urine Protein 30 mg/dL Urine Glucose (UA) NEG mg/dL Urine Ketones NEG mg/dL Urine Occult Blood TRACE Urine Nitrite NEG Urine Bilirubin NEG Urine Urobilinogen LESS THAN 2.0 MG/DL Urine Leukocyte Esterase LARGE Urine RBC 14 /hpf Urine WBC 99 /hpf Urine WBC Clumps MANY Urine Squamous Epithelial Cells 4 /hpf Urine Bacteria MOD /hpf Urine Hyaline Casts 3 /lpf Urine Mucus FEW /lpf Microscopic Urinalysis Comment CULTURE INDICATED MDM Medical Decision Making Medical Screen Exam Complete: Yes Emergency Medical Condition: Yes Differential Diagnosis Dependent edema versus CHF exacerbation versus DVT versus hip fracture versus contusion versus abrasion versus other Narrative Course 71-year-old female with PMH of Kusum oliveira, on Coumadin presents to the ED for evaluation of worsening edema of the right lower extremity. Patient states that she fell onto the left hip approximately 1 month ago and has been minimally ambulatory secondary to pain in the area. She states that she has a small wound on the left hip. She saw her PCP and had outpatient studies ordered but states that she was unable to complete them because she was unable to get on the x-ray table unassisted. Patient endorses recent treatment for UTI. She complains of a cramping sensation in the low back. Vitals reviewed. On exam this is an obese white female no acute distress. There is an abrasion over the left anterior hip with localized erythema but no cellulitic changes. The right lower extremity is edematous as compared to the left. Homans sign positive. Otherwise intact. IV was established. CBC: WBC 5.4. Hemoglobin 10.1. Anemia is chronic per record review. INR 1.9. CMP: Sodium 127, chloride 92. Calcium 7.9. Albumin 2.7 X-ray left hip reveals intact pelvis and hip per radiology read. RLE US: Negative for DVT. Patient was administered thousand milligrams calcium supplement by mouth. UA pending. Patient signed out to Dr. Mayo in the shift. Please see her note for disposition. Diagnosis Primary Impression: Synovial cyst of popliteal space [Davis], right knee Additional Impression: Abrasion, left hip, initial encounter Referrals: Primary Care Physician Additional Instructions: Rest, hydrate. Keep your wound clean, dry and covered. Apply Bactroban ointment twice a day as prescribed. Resume your at home medications as previously prescribed. Follow-up with your primary care provider as discussed. Return to the ED for worsening symptoms or any urgent or emergent medical condition. Med/Other Pt SpecificInfo: Prescription(s) given Scripts Cephalexin (Keflex) 500 Mg Capsule 500 MG PO Q8H for Infection, #30 CAP 0 Refills Prov: Laila Mayo MD 07/20/17 Mupirocin Topical (Bactroban Topical) 22 Gm Cream 1 APPLIC TOPICAL BID for Mgmt Bacterial Infection for 7 Days, #1 TUBE 0 Refills Prov: Laila Mayo MD 07/20/17 Desirae Miranda Jul 20, 2017 20:35
--- NOTE | 2017-07-20 20:47 | RADRPT ---
EXAM DATE/TIME: 07/20/2017 20:31 [facility] COMPARISON: No previous studies available for comparison. INDICATIONS : Pain in left hip from fall several weeks ago. MEDICAL HISTORY : None. SURGICAL HISTORY : None. ENCOUNTER: Initial ACUITY: 1 day PAIN SCORE: 5/10 LOCATION: Left hip FINDINGS: Examination of the left hip was performed with AP Pelvis. The primary and secondary trabecular patte rn of the femoral neck is intact. The hip joint is of normal width without significant sclerosis or bony hypertrophy. The acetabulum is grossly intact. CONCLUSION: Intact pelvis and left hip. Selvin Solano MD on July 20, 2017 at 20:44 Board Certified Radiologist. This report was verified electronically.
[2017-07-20 21:21] LABS: AUTOMATED NEUTROPHIL # 2.9 TH/MM3 (1.8-7.7); BASOPHIL % 0.7 % (0.0-2.0); EOSINOPHIL # 0.2 TH/MM3 (0-0.4); HEMATOCRIT 28.8 % (35.0-46.0); HEMOGLOBIN 10.1 GM/DL (11.6-15.3); LYMPH % 26.3 % (9.0-44.0); LYMPHOCYTE # 1.4 TH/MM3 (1.0-4.8); MEAN CELL VOLUME 103.3 FL (80.0-100.0); MEAN CORPUSCULAR HEMOGLOBIN 36.3 PG (27.0-34.0); MEAN CORPUSCULAR HGB CONC 35.2 % (32.0-36.0); MEAN PLATELET VOLUME 8.4 FL (7.0-11.0); MONO % 15.6 % (0.0-8.0); MONOCYTE # 0.8 TH/MM3 (0-0.9); NEUT % 54.4 % (16.0-70.0); PLATELET COUNT 144 TH/MM3 (150-450); RED BLOOD COUNT 2.79 MIL/MM3 (4.00-5.30); RED CELL DISTRIBUTION WIDTH 14.4 % (11.6-17.2); WHITE BLOOD COUNT 5.4 TH/MM3 (4.0-11.0)
[2017-07-20 21:28] LABS: ALBUMIN 2.7 GM/DL (3.4-5.0); ALT (GPT) 14 U/L (10-53); AST (GOT) 27 U/L (15-37); BICARBONATE 23.9 MEQ/L (21.0-32.0); BLOOD UREA NITROGEN 16 MG/DL (7-18); CALCIUM 7.9 MG/DL (8.5-10.1); CHLORIDE 92 MEQ/L (98-107); CREATININE 0.91 MG/DL (0.50-1.00); GLOMERULAR FILTRATION RATE 61 ML/MIN (>89); GLUCOSE,RANDOM 89 MG/DL (74-106); SODIUM (NA) 127 MEQ/L (136-145)
[2017-07-20 21:31] LABS: ALKALINE PHOSPHATASE 87 U/L (45-117); TOTAL BILIRUBIN ADULT 0.7 MG/DL (0.2-1.0); TOTAL PROTEIN 6.8 GM/DL (6.4-8.2)
[2017-07-20 21:32] LABS: INTERNATIONAL NORMALIZED RATIO 1.9 RATIO; PROTHROMBIN TIME - PATIENT 19.6 SEC (9.8-11.6)
[2017-07-20] MEDS ORDERED: CALCIUM CARBONATE 500 MG CHEWABLE TAB CHEW ONE (22:00)
--- NOTE | 2017-07-20 22:04 | RADRPT ---
EXAM DATE/TIME: 07/20/2017 20:49 [facility] COMPARISON: No previous studies available for comparison. INDICATIONS : Right leg swelling. MEDICAL HISTORY : Hypertension. [place] fibrillation. Arthirtis. Bilateral breast cancer. SURGICAL HISTORY : Tonsillectomy. Tubal ligation. Hysterectomy. Clavicle resection. Bilateral mastectomy. ENCOUNTER: Initial ACUITY: 1 day PAIN SCORE: 0/10 LOCATION: Right leg. TECHNIQUE: Venous ultrasound of the leg was performed from the inguinal ligament to the proximal calf. Real-leana e, color Doppler and spectral tracing, compression and augmentation techniques were used. FINDINGS: There is normal compressibility of the deep venous system from the inguinal region to the proximal ca lf. No echogenic clot is seen in the lumen of the common femoral, femoral, popliteal, and posterior tibial veins. There is a normal response of the venous system to proximal and distal augmentation an d respiration. Diffuse subcutaneous edema. There is a 1.5 x 2.5 x 6.0 cm Davis's cyst. CONCLUSION: No venous thrombosis of the right lower extremity. Nonspecific subcutaneous edema. Moderate to large popliteal cyst. Selvin Solano MD on July 20, 2017 at 22:01 Board Certified Radiologist. This report was verified electronically.
[2017-07-20] MEDS ORDERED: MUPI2%T TOPICAL (22:48)
[2017-07-20 23:31] LABS: BACTERIA, URINE MOD /hpf; BILIRUBIN, URINE NEG (NEG); BLOOD, URINE TRACE (NEG); GLUCOSE,URINE NEG (NEG); HYALINE CAST, URINE 3 /lpf (RARE); KETONE, URINE NEG (NEG); MUCUS URINE FEW /lpf (OCC); NITRITE,URINE NEG (NEG); PH, URINE 5.5 (5.0-8.5); SQUAMOUS EPITHELIAL CELL URINE 4 /hpf (0-5); URINE COLOR YELLOW (YELLW/STRAW); URINE LEUKOCYTE ESTERASE LARGE (NEG); WHITE BLOOD CELL CLUMPS MANY
[2017-07-20] MEDS ORDERED: CEPH-460 PO (23:44)
--- NOTE | 2017-07-20 23:44 | PD ---
Data Data Last Documented VS Vital Signs Date Time Temp Pulse Resp B/P (MAP) Pulse Ox O2 Delivery O2 Flow Rate FiO2 07/20/17 20:26 18 07/20/17 20:23 98.2 95 143/83 (103) 100 Orders Orders Us Leg Venous Doppler (07/20/17 20:20) Hip, Uni(Ap&Lat) W Ap Pelvis (07/20/17 20:20) Complete Blood Count With Diff (07/20/17 20:20) Comprehensive Metabolic Panel (07/20/17 20:20) Prothrombin Time / Inr (Pt) (07/20/17 20:20) Act Partial Throm Time (Ptt) (07/20/17 20:20) Urinalysis - C+S If Indicated (07/20/17 20:20) Iv Access Insert/Monitor (07/20/17 20:20) Ecg Monitoring (07/20/17 20:20) Oximetry (07/20/17 20:20) Sodium Chloride 0.9% Flush (Ns Flush) (07/20/17 20:30) Electrocardiogram (07/20/17 20:20) Calcium Carbonate Chew (Tums Chew) (07/20/17 22:00) Cath For Specimen (07/20/17 22:47) Urine Culture (07/20/17 23:00) Ceftriaxone Inj (Rocephin Inj) (07/20/17 23:45) Labs Laboratory Tests Test 07/20/17 20:42 07/20/17 23:00 White Blood Count 5.4 TH/MM3 Red Blood Count 2.79 MIL/MM3 Hemoglobin 10.1 GM/DL Hematocrit 28.8 % Mean Corpuscular Volume 103.3 FL Mean Corpuscular Hemoglobin 36.3 PG Mean Corpuscular Hemoglobin Concent 35.2 % Red Cell Distribution Width 14.4 % Platelet Count 144 TH/MM3 Mean Platelet Volume 8.4 FL Neutrophils (%) (Auto) 54.4 % Lymphocytes (%) (Auto) 26.3 % Monocytes (%) (Auto) 15.6 % Eosinophils (%) (Auto) 3.0 % Basophils (%) (Auto) 0.7 % Neutrophils # (Auto) 2.9 TH/MM3 Lymphocytes # (Auto) 1.4 TH/MM3 Monocytes # (Auto) 0.8 TH/MM3 Eosinophils # (Auto) 0.2 TH/MM3 Basophils # (Auto) 0.0 TH/MM3 CBC Comment DIFF FINAL Differential Comment Prothrombin Time 19.6 SEC Prothromb Time International Ratio 1.9 RATIO Activated Partial Thromboplast Time 37.6 SEC Blood Urea Nitrogen 16 MG/DL Creatinine 0.91 MG/DL Random Glucose 89 MG/DL Total Protein 6.8 GM/DL Albumin 2.7 GM/DL Calcium Level 7.9 MG/DL Alkaline Phosphatase 87 U/L Aspartate Amino Transf (AST/SGOT) 27 U/L Alanine Aminotransferase (ALT/SGPT) 14 U/L Total Bilirubin 0.7 MG/DL Sodium Level 127 MEQ/L Potassium Level 3.6 MEQ/L Chloride Level 92 MEQ/L Carbon Dioxide Level 23.9 MEQ/L Anion Gap 11 MEQ/L Estimat Glomerular Filtration Rate 61 ML/MIN Urine Color YELLOW Urine Turbidity CLOUDY Urine pH 5.5 Urine Specific [place] 1.010 Urine Protein 30 mg/dL Urine Glucose (UA) NEG mg/dL Urine Ketones NEG mg/dL Urine Occult Blood TRACE Urine Nitrite NEG Urine Bilirubin NEG Urine Urobilinogen LESS THAN 2.0 MG/DL Urine Leukocyte Esterase LARGE Urine RBC 14 /hpf Urine WBC 99 /hpf Urine WBC Clumps MANY Urine Squamous Epithelial Cells 4 /hpf Urine Bacteria MOD /hpf Urine Hyaline Casts 3 /lpf Urine Mucus FEW /lpf Microscopic Urinalysis Comment CULTURE INDICATED MDM Medical Record Reviewed: Yes Supervised Visit with REEMA: No Interpretation(s) Last Impressions Lower Extremity Ultrasound 07/20/172019 Signed Impressions: Service Date/Time: Thursday, July 20, 2017 20:49 - CONCLUSION: No venous thrombosis of the right lower extremity. Nonspecific subcutaneous edema. Moderate to large popliteal cyst. Selvin Solano MD Hip and Pelvis X-Ray 07/20/172019 Signed Impressions: Service Date/Time: Thursday, July 20, 2017 20:31 - CONCLUSION: Intact pelvis and left hip. Selvin Solano MD Narrative Course During the course of the patient's emergency department visit, the patient's history, examination, and differential diagnosis were reviewed with the patient. The patient was placed on a coupon clerk with oximetry and frequent blood pressure monitoring. The patient had IV access obtained and blood work sent for analysis. The patient was initially evaluated by Desirae, the physician assistant athletic trainer. Please see her complete history and physical. The patient 's case was checked out to me at the conclusion of her shift. The patient was pending results of her urinalysis. The patient was initially provided calcium carbonate 1000 mg p.o. 1. The patient's laboratory studies were reviewed and remarkable for a CBC that shows a white count of 5.4, hemoglobin 10.1, platelets 144 with 15.6 monocytes, CMP is remarkable for a sodium of 127, chloride 92, GFR 61, calcium 7.9, albumin 2.7, PT 19.6, INR 1.9, PTT 37.6, urinalysis shows a large leukocyte esterase 14 RBCs, WBCs 99, WBC clumps many, moderate bacteria, culture indicated. The patient reports that she completed a course of nitrofurantoin earlier today. The patient will be given Rocephin 1 g IV. The patient will then be discharged home with a prescription for Keflex. Radiology studies were reviewed and remarkable for a left hip and pelvis x-ray that reveal an intact pelvis and left hip. An ultrasound shows no evidence of DVT in the right lower extremity, nonspecific subcutaneous edema, moderate to large popliteal cyst. The patient will be discharged home with Keflex for a urinary tract infection. The patient was instructed to elevate her legs frequently, increase the protein in her diet due to her hypoalbuminemia which could be contributing to her lower extremity edema. The patient is resting comfortably and feels better, is alert and in no distress. The patient's results and examination findings were discussed with the patient. The repeat examination is unremarkable and benign. The history, exam, diagnostic testing, and current condition do not suggest any significant pathology to warrant further testing, continued ED treatment, admission, or surgical evaluation at this point. The vital signs have been stable. The patient does not have uncontrollable pain, intractable vomiting, or other significant symptoms. The patient's condition is stable and appropriate for discharge. The patient will pursue further outpatient evaluation with a primary care physician or other designated or consulting physician as indicated in the discharge instructions. The patient expressed understanding and was agreeable with this plan. Diagnosis Primary Impression: Synovial cyst of popliteal space [Davis], right knee Additional Impressions: Abrasion, left hip, initial encounter Urinary tract infection Qualified Codes: N39.0 - Urinary tract infection, site not specified; R31.9 - Hematuria, unspecified Referrals: Primary Care Physician 2 days Patient Instructions: Abrasion (ED), Bakers Cyst (ED), General Instructions, Urinary Tract Infection in Women (ED) Additional Instruction: Rest, hydrate. Keep your wound clean, dry and covered. Apply Bactroban ointment twice a day as prescribed. Resume your at home medications as previously prescribed. Follow-up with your primary care provider as discussed. Return to the ED for worsening symptoms or any urgent or emergent medical condition. Med/Other Pt SpecificInfo: Prescription(s) given Scripts Cephalexin (Keflex) 500 Mg Capsule 500 MG PO Q8H for Infection, #30 CAP 0 Refills Prov: Laila Mayo MD 07/20/17 Mupirocin Topical (Bactroban Topical) 22 Gm Cream 1 APPLIC TOPICAL BID for Mgmt Bacterial Infection for 7 Days, #1 TUBE 0 Refills Prov: Laila Mayo MD 07/20/17 Disposition: 01 DISCHARGE HOME Condition: Stable Laila Mayo MD Jul 20, 2017 23:44
[2017-07-20] MEDS ORDERED: cefTRIAXone INJ 1,000 MG in SODIUM CHLORIDE 0.9% INJ 100 ML IV ONE (23:45)
--- NOTE | 2017-07-21 15:25 | EKG ---
Date Performed: 07/20/2017 Time Performed: 20:53:21 PTAGE: 71 years EKG: ATRIAL FIBRILLATION WITH RAPID VENTRICULAR RESPONSE Since the previous tracing, no signific ant change noted ABNORMAL RHYTHM ECG PREVIOUS TRACING : 04/22/2017 17.23 DOCTOR: Kathleen Loving Interpretating Date/Time 07/21/2017 15:17:41
== END 2017-07-21 07:00 | disposition home or self-care (01) ==
LOC: NEPE 20:04
DX: M71.21 Synovial cyst of popliteal space [Baker], right knee (principal); S70.212A Abrasion, left hip, initial encounter; N39.0 Urinary tract infection, site not specified; R31.9 Hematuria, unspecified; M79.89 Other specified soft tissue disorders; I48.91 Unspecified atrial fibrillation; W19.XXXA Unspecified fall, initial encounter; Z79.01 Long term (current) use of anticoagulants
CPT/HCPCS: 73502; 80053; 81001; 85025; 85610; 85730; 87077; 87086; 87186; 93005; 93971; 96365; 96366; 99285; J0696; P9612

== ENCOUNTER 2017-09-12 12:14 | Inpatient (IN) | payer OTHER, MEDICARE ==
[~2017-09-12] VITALS: Ht 172.7 cm; Wt 94.5 kg
[2017-09-12] VITALS (7 sets, daily range): BP systolic 93–116; BP diastolic 51–67; PULSE 94–117; RESP 14–21; TEMP 97.8–98.3; O2SAT 95–99
[~2017-09-12 12:14] MED LIST changes: +CEPH-460 PO; +MUPI2%T TOPICAL
[2017-09-12 13:14] LABS: AUTOMATED NEUTROPHIL # 4.4 TH/MM3 (1.8-7.7); BASOPHIL % 0.4 % (0.0-2.0); EOSINOPHIL # 0.1 TH/MM3 (0-0.4); EOSINOPHIL % 1.7 % (0.0-4.0); HEMATOCRIT 31.1 % (35.0-46.0); HEMOGLOBIN 10.9 GM/DL (11.6-15.3); LYMPHOCYTE # 1.6 TH/MM3 (1.0-4.8); MEAN CELL VOLUME 105.8 FL (80.0-100.0); MEAN CORPUSCULAR HEMOGLOBIN 37.1 PG (27.0-34.0); MEAN CORPUSCULAR HGB CONC 35.1 % (32.0-36.0); MEAN PLATELET VOLUME 9.3 FL (7.0-11.0); MONO % 13.3 % (0.0-8.0); MONOCYTE # 0.9 TH/MM3 (0-0.9); NEUT % 61.6 % (16.0-70.0); PLATELET COUNT 214 TH/MM3 (150-450); RED BLOOD COUNT 2.94 MIL/MM3 (4.00-5.30); WHITE BLOOD COUNT 7.1 TH/MM3 (4.0-11.0)
[2017-09-12] MEDS ORDERED: LABETALOL HCL 100 MG/20 ML VIAL IV PUSH ONE (13:15)
--- NOTE | 2017-09-12 13:16 | RADRPT ---
EXAM DATE: 09/12/2017 1:08 PM EDT AGE/SEX: 72 years / Female INDICATIONS: Heart palpitations earlier ,today. CLINICAL DATA: This is the patient's initial encounter. Patient reports that signs and symptoms have been present for 1 day and indicates a pain score of 0/10. MEDICAL/SURGICAL HISTORY: . Carcinoma, breast. Cardiovascular disease Hypertension . ortho; To nsillectomy. Hysterectomy. Tubal ligation COMPARISON: No prior [facility] exams available for comparison. FINDINGS: A single AP view of the chest demonstrates the lungs to be symmetrically aerated without evidence of mass, infiltrate or effusion. The cardiomediastinal contours are unremarkable. Osseous structures a re intact. Previous cervical spine fusion. CONCLUSION: Negative for acute disease. Electronically signed by: Adan Bains MD 09/12/2017 1:15 PM EDT
[2017-09-12 13:26] LABS: INTERNATIONAL NORMALIZED RATIO 1.8 RATIO; PROTHROMBIN TIME - PATIENT 18.5 SEC (9.8-11.6)
[2017-09-12 13:30] LABS: BACTERIA, URINE MOD /hpf; BILIRUBIN, URINE NEG (NEG); BLOOD, URINE SMALL (NEG); GLUCOSE,URINE NEG (NEG); KETONE, URINE NEG (NEG); NITRITE,URINE NEG (NEG); PH, URINE 5.5 (5.0-8.5); URINE COLOR YELLOW (YELLW/STRAW); URINE LEUKOCYTE ESTERASE LARGE (NEG); WHITE BLOOD CELL CLUMPS MANY
[2017-09-12 13:35] LABS: ALBUMIN 2.7 GM/DL (3.4-5.0); ALT (GPT) 17 U/L (10-53); AST (GOT) 24 U/L (15-37); BLOOD UREA NITROGEN 25 MG/DL (7-18); CALCIUM 8.1 MG/DL (8.5-10.1); CHLORIDE 99 MEQ/L (98-107); CREATININE 1.31 MG/DL (0.50-1.00); GLOMERULAR FILTRATION RATE 40 ML/MIN (>89); GLUCOSE,RANDOM 116 MG/DL (74-106); SODIUM (NA) 135 MEQ/L (136-145)
[2017-09-12 13:38] LABS: ALKALINE PHOSPHATASE 95 U/L (45-117); TOTAL PROTEIN 7.1 GM/DL (6.4-8.2); TROPONIN I LESS THAN 0.02 NG/ML (0.02-0.05)
[2017-09-12] MEDS ORDERED: METOPROLOL TARTRATE 5 MG/5 ML VIAL IV PUSH ONE (14:00)
[2017-09-12] MEDS ORDERED: SODIUM CHLORID 0.9% 500 ML INJ 500 ML IV ONE (14:45)
[2017-09-12] MEDS ORDERED: cefTRIAXone INJ 1,000 MG in SODIUM CHLORIDE 0.9% INJ 100 ML IV ONE (14:45)
--- NOTE | 2017-09-12 14:49 | PD ---
HPI Chief Complaint: Cardiac Complaint Time Seen by Provider: 12:22 Travel History International Travel<30 days: No Contact w/Intl Traveler<30days: No Traveled to known affect area: No History of Present Illness HPI This is a 72-year-old female with a history of schizoaffective disorder, atrial fibrillation, who presents here with palpitations and dizziness. Patient states that she started experiencing the palpitations and dizziness when she went out to sit outside. She denies any fevers, chills. She denies any nausea vomiting diarrhea. She states that she has been taking her medications as prescribed however her pulse went up into the 160s today. Paramedics arrived and gave her 20 mg of Cardizem. They brought her heart rate down into the 100s. Reported low 100s of 110 120. There is no chest pain, chest pressure. She does report the palpitations. There is no shortness of breath. PFSH Past Medical History Hx Anticoagulant Therapy: Yes (warfarin) Arthritis: Yes Atrial Fibrillation: Yes Anxiety: Yes Depression: Yes Heart Rhythm Problems: Yes Cancer: Yes (BILATERAL BREAST) Cardiovascular Problems: Yes (afib) Diminished Hearing: No Gastrointestinal Disorders: Yes Genitourinary: Yes (nocturnal incontenience) Hypertension: Yes Insomnia: Yes Musculoskeletal: Yes Neurologic: Yes Psychiatric: Yes (visual hallucinations) Immunizations Current: Yes Pneumonia: Yes Influenza Vaccination: Yes Tubal Ligation: Yes Past Surgical History Gynecologic Surgery: Yes (tubiligation, hysterectomy) Hysterectomy: Yes Oral Surgery: Yes (tonsilectomy) Thoracic Surgery: Yes (clavicle resection) Tonsillectomy: Yes Other Surgery: Yes (BILATERAL MASTECTOMY, L CLAVICLE SX) Social History Alcohol Use: Yes (couple beers a day and a shot of sarahy) Tobacco Use: No Substance Use: No Allergies-Medications (Allergen,Severity, Reaction): Coded Allergies: No Known Allergies (Unverified , 09/12/17) Reported Meds & Prescriptions Reported Meds & Active Scripts Active Keflex (Cephalexin) 500 Mg Capsule 500 Mg PO Q8H Bactroban Topical (Mupirocin) 22 Gm Cream 1 Applic TOPICAL BID 7 Days Diltiazem CD 24 HR 240 Mg Caper 240 Mg PO HS Flomax (Tamsulosin HCl) 0.4 Mg Cap 0.4 Mg PO DAILY Reported Warfarin 2 Mg Tab 2 Mg PO DAILY Alprazolam 0.5 Mg Tab 0.5 Mg PO Q8H PRN Metoprolol Tartrate 50 Mg Tab 50 Mg PO BID Furosemide 40 Mg Tab 40 Mg PO DAILY Nitroglycerin SL (Nitroglycerin) 0.4 Mg Subl 0.4 Mg SL DIRECTED PRN ONE TABLET UNDER THE TONGUE NEEDED FOR CHEST PAIN, MAY REPEAT EVERY FIVE MINUTES FOR A TOTAL OF 3 DOSES OR CALL 911 IF NO RELIEF Risperidone 0.5 Mg Tab 0.5 Mg PO Q12HR Jantoven (Warfarin) 2.5 Mg Tab 2.5 Mg PO DAILY Sodium Chloride 1 Gram Tab 1 Gm PO DAILY Review of Systems Except as stated in HPI: all other systems reviewed are Neg General / Constitutional: No: Fever, Chills HENT: Positive: Lightheadedness, No: Headaches, Neck Stiffness Cardiovascular: Positive: Palpitations, Irregular Rhythm, No: Chest Pain or Discomfort Respiratory: Positive: Shortness of Breath, No: Cough Gastrointestinal: No: Nausea, Vomiting, Abdominal Pain Genitourinary: No: Frequency, Dysuria Musculoskeletal: No: Weakness, Pain Neurologic: Positive: Dizziness, No: Weakness, Headache (Lightheadedness) Physical Exam Narrative GENERAL: Well-developed well-nourished SKIN: Focused skin assessment warm/dry. HEAD: Atraumatic. Normocephalic. EYES: Pupils equal and round. No scleral icterus. No injection or drainage. ENT: No nasal bleeding or discharge. Mucous membranes pink and moist. NECK: Trachea midline. No JVD. Supple CARDIOVASCULAR: Irregularly irregular with a rate in the 120s. No murmur appreciated. RESPIRATORY: No accessory muscle use. Clear to auscultation. Breath sounds equal bilaterally. GASTROINTESTINAL: Abdomen soft, non-tender, nondistended. Hepatic and splenic margins not palpable. MUSCULOSKELETAL: No obvious deformities. No clubbing. No cyanosis. No edema. NEUROLOGICAL: Awake and alert. No obvious cranial nerve deficits. Motor grossly within normal limits. Normal speech. Data Data Last Documented VS Vital Signs Date Time Temp Pulse Resp B/P (MAP) Pulse Ox O2 Delivery O2 Flow Rate FiO2 09/12/17 14:11 117 21 106/63 (77) 98 Room Air 09/12/17 12:25 98.0 Orders Orders Electrocardiogram (09/12/17 12:30) Complete Blood Count With Diff (09/12/17 12:30) Comprehensive Metabolic Panel (09/12/17 12:30) Ckmb (Isoenzyme) Profile (09/12/17 12:30) Troponin I (09/12/17 12:30) Prothrombin Time / Inr (Pt) (09/12/17 12:30) Act Partial Throm Time (Ptt) (09/12/17 12:30) Urinalysis - C+S If Indicated (09/12/17 12:30) Chest, Single Ap (09/12/17 12:30) Iv Access Insert/Monitor (09/12/17 12:30) Ecg Monitoring (09/12/17 12:30) Oximetry (09/12/17 12:30) Labetalol Inj (Trandate Inj) (09/12/17 13:15) Urine Culture (09/12/17 13:09) Metoprolol Tartrate Inj (Lopressor Inj) (09/12/17 14:00) Ceftriaxone Inj (Rocephin Inj) (09/12/17 14:45) Ns (Bolus) Inj (09/12/17 14:45) Sodium Chlor 0.9% 1000 Ml Inj (Ns 1000 M (09/12/17 14:45) Labs Laboratory Tests Test 09/12/17 12:39 09/12/17 13:09 White Blood Count 7.1 TH/MM3 Red Blood Count 2.94 MIL/MM3 Hemoglobin 10.9 GM/DL Hematocrit 31.1 % Mean Corpuscular Volume 105.8 FL Mean Corpuscular Hemoglobin 37.1 PG Mean Corpuscular Hemoglobin Concent 35.1 % Red Cell Distribution Width 16.0 % Platelet Count 214 TH/MM3 Mean Platelet Volume 9.3 FL Neutrophils (%) (Auto) 61.6 % Lymphocytes (%) (Auto) 23.0 % Monocytes (%) (Auto) 13.3 % Eosinophils (%) (Auto) 1.7 % Basophils (%) (Auto) 0.4 % Neutrophils # (Auto) 4.4 TH/MM3 Lymphocytes # (Auto) 1.6 TH/MM3 Monocytes # (Auto) 0.9 TH/MM3 Eosinophils # (Auto) 0.1 TH/MM3 Basophils # (Auto) 0.0 TH/MM3 CBC Comment DIFF FINAL Differential Comment Prothrombin Time 18.5 SEC Prothromb Time International Ratio 1.8 RATIO Activated Partial Thromboplast Time 36.3 SEC Blood Urea Nitrogen 25 MG/DL Creatinine 1.31 MG/DL Random Glucose 116 MG/DL Total Protein 7.1 GM/DL Albumin 2.7 GM/DL Calcium Level 8.1 MG/DL Alkaline Phosphatase 95 U/L Aspartate Amino Transf (AST/SGOT) 24 U/L Alanine Aminotransferase (ALT/SGPT) 17 U/L Total Bilirubin 1.0 MG/DL Sodium Level 135 MEQ/L Potassium Level 4.2 MEQ/L Chloride Level 99 MEQ/L Carbon Dioxide Level 24.0 MEQ/L Anion Gap 12 MEQ/L Estimat Glomerular Filtration Rate 40 ML/MIN Total Creatine Kinase 29 U/L Troponin I LESS THAN 0.02 NG/ML Urine Color YELLOW Urine Turbidity CLOUDY Urine pH 5.5 Urine Specific [place] 1.011 Urine Protein 30 mg/dL Urine Glucose (UA) NEG mg/dL Urine Ketones NEG mg/dL Urine Occult Blood SMALL Urine Nitrite NEG Urine Bilirubin NEG Urine Urobilinogen LESS THAN 2.0 MG/DL Urine Leukocyte Esterase LARGE Urine RBC 2 /hpf Urine WBC /hpf Urine WBC Clumps MANY Urine Bacteria MOD /hpf Microscopic Urinalysis Comment CULTURE INDICATED MDM Medical Decision Making Medical Screen Exam Complete: Yes Emergency Medical Condition: Yes Differential Diagnosis A. fib with RVR versus metabolic derangement versus sepsis versus medication noncompliance Leonardo Garvin MD Sep 12, 2017 14:49
[2017-09-12] MEDS ORDERED: AMIODARONE INJ 150 MG in DEXTROSE 5% IN WATER 100ML INJ 97 ML IV ONE ×2 (15:13)
[2017-09-12] MEDS: SODIUM CHLOR 0.9% 1000 ML INJ 1,000 ML IV SCH (15:14)
[2017-09-12] MEDS ORDERED: SODIUM CHLORIDE 0.9% FLUSH 10 ML FLUSH IV FLUSH PRN (15:15)
--- NOTE | 2017-09-12 15:29 | HHI.HP ---
HPI Service [facility] Primary Care Physician Unknown Admission Diagnosis Diagnoses: (1) Hallucination (2) Atrial fibrillation with RVR (3) SARAI (acute kidney injury) (4) UTI (urinary tract infection) Chief Complaint: I was seeing people in my house Travel History International Travel<30 Days: No Contact w/Intl Traveler <30 Da: No Traveled to Known Affected Are: No History of Present Illness Written by Payton Thakkar, acting as scribe for Dr. Damon on 09/12/17 at 15:25. 72-year-old female with PMH of a. fib anticoagulated on Coumadin, HTN, anxiety, and schizophrenia who presents to the ER via [facility] after neighbors called 911 with concerns for the patient. Patient states that for the past several day she has been seeing people in home. She tells me she saw a indonesian person with a white coat and a black male who "just sat there". She reports that she did talk to them and asked them to leave, but they did not. She became worried about the people saying they were going to hurt her, she was scared so she stepped out to her porch and when she saw her neighbors she asked them to call 911. Patient also reports that she has been under quite a bit of stress due to a combination of things. She tells me that her and brother passed in 2016 and her other brother had leg amputation. She reports not leaving her house for 1.5 year only to go to her doctors office. She denies any suicidal or homicidal ideations at the moment. She follows up with [facility] for primary care. She does not follow up with a telecommunications facility examiner. Patient also complains of diarrhea last night, none this morning or today. She denies any nausea, vomiting, shortness of breath, cough, chest pain, or heart palpitations. She denies any dysuria, or foul urine smell although does report some abdominal pain and incontinence as well as frequency. Patient states that she has had frequent urinary tract infections this year. She also tells me that she was treated about a week and a half ago for a cough with phlegm for which she was treated with cough medicine, her symptoms resolved. Patient is fearful of what will be done to her house when she returns by these people that she reports seeing. She denies any psychiatric history or ever seeing a psychiatrist. Review of Systems Except as stated in HPI: all other systems reviewed are Neg Past Family Social History Past Medical History A. fib anticoagulated on Coumadin Generalized anxiety disorder Anemia Hypertension Schizophrenia Past Surgical History Hysterectomy Double lumpectomy Radical mastectomy Radical mastectomy Disc surgery Left clavicle surgery Allergies: Coded Allergies: No Known Allergies (Unverified , 09/12/17) Family History Dad: COPD, HTN, cardiac Mother: HTN, strokes Social History Tobacco: denies Alcohol: 2beers and 1 sarahy at bedtime Illicit drug use: Denies Lives alone Ambulates with the use of a walker 3 children Physical Exam Vital Signs Vital Signs Date Time Temp Pulse Resp B/P (MAP) Pulse Ox O2 Delivery O2 Flow Rate FiO2 09/12/17 14:11 117 21 106/63 (77) 98 Room Air 09/12/17 12:36 99 Room Air 09/12/17 12:25 98.0 117 14 112/67 (82) 98 Physical Exam GENERAL: This is a well-nourished, well-developed patient, in no apparent distress. SKIN: No rashes, ecchymoses or lesions. Cool and dry. HEAD: Atraumatic. Normocephalic. No temporal or scalp tenderness. EYES: Pupils equal round and reactive. Extraocular motions intact. No scleral icterus. No injection or drainage. ENT: Nose without bleeding, purulent drainage. Throat without erythema. Uvula midline. Airway patent. NECK: Trachea midline. No JVD. Supple, nontender, no meningeal signs. CARDIOVASCULAR: Irregularly irregular rate and rhythm without murmurs, gallops, or rubs. RESPIRATORY: Clear to auscultation. Breath sounds equal bilaterally. No wheezes , rales, or rhonchi. GASTROINTESTINAL: Abdomen soft, mild tenderness with palpation, nondistended. No hepato-splenomegaly, or palpable masses. No guarding. MUSCULOSKELETAL: Extremities without clubbing, cyanosis, or edema. No joint tenderness, effusion, or edema noted. No calf tenderness. NEUROLOGICAL: Awake and alert. Cranial nerves II through XII intact. Motor and sensory grossly within normal limits. Five out of 5 muscle strength in all muscle groups. Normal speech. Laboratory Laboratory Tests Test 09/12/17 12:39 09/12/17 13:09 White Blood Count 7.1 Red Blood Count 2.94 Hemoglobin 10.9 Hematocrit 31.1 Mean Corpuscular Volume 105.8 Mean Corpuscular Hemoglobin 37.1 Mean Corpuscular Hemoglobin Concent 35.1 Red Cell Distribution Width 16.0 Platelet Count 214 Mean Platelet Volume 9.3 Neutrophils (%) (Auto) 61.6 Lymphocytes (%) (Auto) 23.0 Monocytes (%) (Auto) 13.3 Eosinophils (%) (Auto) 1.7 Basophils (%) (Auto) 0.4 Neutrophils # (Auto) 4.4 Lymphocytes # (Auto) 1.6 Monocytes # (Auto) 0.9 Eosinophils # (Auto) 0.1 Basophils # (Auto) 0.0 CBC Comment DIFF FINAL Differential Comment Prothrombin Time 18.5 Prothromb Time International Ratio 1.8 Activated Partial Thromboplast Time 36.3 Blood Urea Nitrogen 25 Creatinine 1.31 Random Glucose 116 Total Protein 7.1 Albumin 2.7 Calcium Level 8.1 Alkaline Phosphatase 95 Aspartate Amino Transf (AST/SGOT) 24 Alanine Aminotransferase (ALT/SGPT) 17 Total Bilirubin 1.0 Sodium Level 135 Potassium Level 4.2 Chloride Level 99 Carbon Dioxide Level 24.0 Anion Gap 12 Estimat Glomerular Filtration Rate 40 Total Creatine Kinase 29 Troponin I LESS THAN 0.02 Urine Color YELLOW Urine Turbidity CLOUDY Urine pH 5.5 Urine Specific [place] 1.011 Urine Protein 30 Urine Glucose (UA) NEG Urine Ketones NEG Urine Occult Blood SMALL Urine Nitrite NEG Urine Bilirubin NEG Urine Urobilinogen LESS THAN 2.0 Urine Leukocyte Esterase LARGE Urine RBC 2 Urine WBC Urine WBC Clumps MANY Urine Bacteria MOD Microscopic Urinalysis Comment CULTURE INDICATED Date/Time Source Procedure Growth Status 09/12/17 13:09 Urine Clean Catch Urine Culture Pending Received Result Diagram: 09/12/17 1239 09/12/17 1239 Imaging Last Impressions Chest X-Ray 09/12/17 1230 Signed Impressions: CONCLUSION: Negative for acute disease. Caprini VTE Risk Assessment Caprini VTE Risk Assessment: Mod/High Risk (score >= 2) Caprini Risk Assessment Model Point Value = 1 Point Value = 2 Point Value = 3 Point Value = 5 Age 41-60 Minor surgery BMI > 25 kg/m2 Swollen legs Varicose veins or History of unexplained or recurrent spontaneous Oral contraceptives or hormone replacement Sepsis (< 1 month) Serious lung disease, including pneumonia (< 1 month) Abnormal pulmonary function Acute myocardial infarction Congestive heart failure (< 1 month) History of inflammatory bowel disease Medical patient at bed rest Age 61-74 Arthroscopic surgery Major open surgery (> 45 min) Laparoscopic surgery (> 45 min) Malignancy Confined to bed (> 72 hours) Immobilizing plaster cast Central venous access Age >= 75 History of VTE Family history of VTE Factor V Leiden Prothrombin [id number] Lupus anticoagulant Anticardiolipin antibodies Elevated serum homocysteine Heparin-induced thrombocytopenia Other congenital or acquired thrombophilia Stroke (< 1 month) Elective arthroplasty Hip, pelvis, or leg fracture Acute spinal cord injury (< 1 month) Prophylaxis Regimen Total Risk Factor Score Risk Level Prophylaxis Regimen 0-1 Low Early ambulation 2 Moderate Order ONE of the following: *Sequential Compression Device (SCD) *Heparin 5000 units SQ BID 3-4 Higher Order ONE of the following medications: *Heparin 5000 units SQ TID *Enoxaparin/Lovenox 40 mg SQ daily (WT < 150 kg, CrCl > 30 mL/min) *Enoxaparin/Lovenox 30 mg SQ daily (WT < 150 kg, CrCl > 10-29 mL/min) *Enoxaparin/Lovenox 30 mg SQ BID (WT < 150 kg, CrCl > 30 mL/min) AND/OR *Sequential Compression Device (SCD) 5 or more Highest Order ONE of the following medications: *Heparin 5000 units SQ TID (Preferred with Epidurals) *Enoxaparin/Lovenox 40 mg SQ daily (WT < 150 kg, CrCl > 30 mL/min) *Enoxaparin/Lovenox 30 mg SQ daily (WT < 150 kg, CrCl > 10-29 mL/min) *Enoxaparin/Lovenox 30 mg SQ BID (WT < 150 kg, CrCl > 30 mL/min) AND *Sequential Compression Device (SCD) Assessment and Plan Assessment and Plan 72-year-old female with PMH of a. fib anticoagulated on Coumadin, HTN, anxiety, and schizophrenia who presents to the ER via [facility] after neighbors called 911 with concerns for patient. Patient reported to the emergency department physician that she did feel palpitations as well as dizziness therefore she went outside of her house. A. fib with RVR Subtherapeutic INR -Heart rate on admission 170, EKG completed in ER reviewed, atrial fibrillation with RVR, heart rate 121 -Patient was provided with 20 mg of Cardizem by paramedics on scene, she was provided with Lopressor 5 mg IV, labetalol 10 mg IV in the ER -Continues to be in A. fib with heart rate fluctuating as high as 120s -INR 1.8, continue Coumadin 2 mg daily and follow INR -We will provide amiodarone bolus followed by drip - Continue Diltiazem P.O, will have nurse call patient's pharmacy to verify dose. -Check free T4, check CK, check 2D echo, initial troponin negative, follow 2 -Monitor on telemetry -Consult cardiology for further recommendations, appreciate assistance UTI -UA positive for occult blood, leukocytes esterase, WBC clumps, afebrile on arrival -Given IV ceftriaxone in the ER. -Patient recently seen and evaluated in the emergency department on 07/20/17 for UTI, provided with p.o. Keflex 10 days, UA was positive for Klebsiella pneumoniae ESBL positive. -Will start IV Zosyn, consult ID for further recommendations. SARAI -Renal function with creatinine 1.31, BUN 25, GFR 40, consistent with mild dehydration, patient with diarrhea 1 day -Provide IV hydration with NS 100 mL's per hour, follow renal function Hyponatremia, mild -Appears as though this might be chronic, patient is on sodium tablet 1 g daily - IVF with NS, monitor electrolytes. Visual hallucinations Hx of schizophrenia and anxiety -Homeless medications include alprazolam and risperidone -Patient with multiple stressors in the past several years. Hallucinations possibly contributed to urinary tract infection, although she does have a history of anxiety and schizophrenia -Consult psychiatry for evaluation and further recommendations, appreciate assistance. Diarrhea -Reports diarrhea 1 day, monitor for ongoing events. DVT prophylaxis-Coumadin This note was transcribed by nadia Thakkar . I, Dr. Bre Damon personally performed the history, physical exam, and medical decision making; and confirmed the accuracy of the information in the transcribed note. Authenticated by Dr. Bre Damon on 09/12/17 at 15:25. Discussed Condition With Patient in ED physician. Physician Certification 2 Midnight Certification Type: Admission for Inpatient Services Order for Inpatient Services The services are ordered in accordance with Medicare regulations or non- Medicare payer requirements, as applicable. In the case of services not specified as inpatient-only, they are appropriately provided as inpatient services in accordance with the 2-midnight benchmark. Estimated LOS (days): 3 days is the estimated time the patient will need to remain in the hospital, assuming treatment plan goals are met and no additional complications. Post-Hospital Plan: [place] Payton Thakkar Sep 12, 2017 15:29 Bre Damon MD Sep 12, 2017 19:26
[2017-09-12] MEDS ORDERED: FAMO1TAB37 PO (15:35)
[2017-09-12] MEDS ORDERED: AMLO10TA2 PO (15:35)
[2017-09-12] MEDS ORDERED: TRAZ50TA12 PO (15:35)
[2017-09-12] MEDS ORDERED: LISI40TA PO (15:35)
[2017-09-12] MEDS ORDERED: DILT120C50 PO (15:35)
[2017-09-12] MEDS ORDERED: BACL10TA PO (15:37)
[2017-09-12] MEDS ORDERED: FAMOTIDINE 20 MG TAB PO PRN (17:15)
[2017-09-12] MEDS: AMIODARONE INJ 450 MG in SODIUM CHLOR 0.9% (EXCEL) INJ 241 ML IV PRN (17:22)
[2017-09-12] MEDS ORDERED: PILL SPLITTER OTHER PRN (17:30)
[2017-09-12] MEDS: PIPERACIL-TAZO 3.375 GM PREMIX 50 ML IV SCH (17:47)
[2017-09-12] MEDS ORDERED: WARFARIN SOD 2 MG TAB PO SCH (18:00)
[2017-09-12 19:39] LABS: TROPONIN I LESS THAN 0.02 NG/ML (0.02-0.05)
--- NOTE | 2017-09-12 20:28 | MB ---
cc: Erasmo Mayo MD, Vance E MD DATE: 09/12/2017 REASON FOR CONSULTATION: Evaluation of rapid A-fib. HISTORY OF PRESENT ILLNESS: Gely Kang is a 72-year-old female admitted to the hospital and found to have a urinary tract infection and rapid A-fib. She has been apparently in the hospital multiple times. I have a copy of the consult done by Dr. Bobby 04/20/2017. She has had more than one problem with her atrial fibrillation rate going out of control. There has been a question about compliance, but I cannot verify that. She does not claim to have missed her medications. She takes her metoprolol around 12 noon and around 10 or 11 p.m. and she takes her diltiazem around 12 noon. She says she had this yesterday. She did not have it today. Apparently, today she says she was nauseated and dizzy. She went outside and it was too hot, asked her neighbor to call 911 and was brought into the hospital. She was found to have atrial fibrillation with a heart rate in the 160s by paramedics and got a dose of IV Cardizem, which brought her heart rate down. She says she has had recurrent UTIs and that they just keep coming back. Denies any chest pain, denies syncope. 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 PAST SURGICAL HISTORY: Includes left shoulder surgery, bilateral mastectomy and neck surgery. SOCIAL HISTORY: Has never smoked. Drinks 1 sarahy and a Novoa beer daily. ALLERGIES: NONE KNOWN. FAMILY HISTORY: Positive for DE in father and grandfather. REVIEW OF SYSTEMS: Otherwise noncontributory. PHYSICAL EXAMINATION: GENERAL: Overweight well-developed white female, in no acute distress. VITAL SIGNS: Charted. HEENT: Unremarkable. NECK: No JVD. No bruits. CHEST: Clear to auscultation. CARDIOVASCULAR: S1, S2, irregular rate and rhythm. ABDOMEN: Soft. EXTREMITIES: No clubbing, cyanosis or edema. Pulses are intact. CARDIOLOGY STUDIES: EKG shows A-fib with a rapid ventricular response, rate of 121, nonspecific ST-T wave changes. IMAGING STUDIES: Chest x-ray shows no acute disease. LABORATORY DATA: Hematocrit is 31.1 with an MCV of 105.8, creatinine is 1.31. Troponin is negative. Urinalysis shows many bacteria, many white blood cells. IMPRESSION: 1. Atrial fibrillation with uncontrolled rate. Etiology not entirely clear 2. Urinary tract infection. 3. Macrocytic anemia. RECOMMENDATIONS: Check a B12 level. I am going to change her diltiazem from 240 daily to 180 b.i.d. Continue metoprolol 50 b.i.d. Further therapy to be determined. MD CORI Juárez/ , 07:03 PM , 08:27 PM
[2017-09-12] MEDS: SODIUM CHLORIDE 0.9% FLUSH 10 ML FLUSH IV FLUSH SCH (22:00)
[2017-09-12] MEDS: WARFARIN SOD 2 MG TAB PO SCH (22:00)
[2017-09-12] MEDS: METOPROLOL TARTRATE 50 MG TAB PO SCH (22:02)
[2017-09-13] VITALS (9 sets, daily range): BP systolic 93–117; BP diastolic 58–99; PULSE 101–116; RESP 16–18; TEMP 97.6–99.1; O2SAT 97–100
[2017-09-13] MEDS: PIPERACIL-TAZO 3.375 GM PREMIX 50 ML IV SCH ×2 (01:10→08:37)
[2017-09-13] MEDS: SODIUM CHLOR 0.9% 1000 ML INJ 1,000 ML IV SCH ×3 (01:10→23:16)
[2017-09-13 01:25] LABS: BICARBONATE 24.4 MEQ/L (21.0-32.0); BLOOD UREA NITROGEN 24 MG/DL (7-18); CALCIUM 7.7 MG/DL (8.5-10.1); CHLORIDE 104 MEQ/L (98-107); CREATININE 1.23 MG/DL (0.50-1.00); GLOMERULAR FILTRATION RATE 43 ML/MIN (>89); GLUCOSE,RANDOM 107 MG/DL (74-106); SODIUM (NA) 139 MEQ/L (136-145)
[2017-09-13] MEDS: AMIODARONE INJ 450 MG in SODIUM CHLOR 0.9% (EXCEL) INJ 241 ML IV PRN ×2 (01:26→15:52)
[2017-09-13 01:51] LABS: FREE T4 1.06 NG/DL (0.76-1.46); TROPONIN I LESS THAN 0.02 NG/ML (0.02-0.05)
[2017-09-13] MEDS: TAMSULOSIN HCL 0.4 MG CAP PO SCH (08:35)
[2017-09-13] MEDS: METOPROLOL TARTRATE 50 MG TAB PO SCH ×2 (08:35→21:44)
[2017-09-13] MEDS: SODIUM CHLORIDE 0.9% FLUSH 10 ML FLUSH IV FLUSH SCH ×2 (08:38→21:45)
--- NOTE | 2017-09-13 09:32 | PD.CARD.PN ---
Subjective Subjective Remarks c/o hallucinations Objective Medications Current Medications Medications (Trade) Dose Ordered Sig/Karolina Route Start Time Stop Time Status Last Admin Sodium Chloride 1,000 ml @ 100 mls/hr Q10H IV 09/12/17 14:45 09/13/17 01:10 (NS Flush) 2 ml UNSCH PRN IV FLUSH 09/12/17 15:15 (NS Flush) 2 ml BID IV FLUSH 09/12/17 21:00 09/13/17 08:38 Amiodarone HCl 450 mg/Sodium Chloride 250 ml @ 33.33 mls/ hr Q7H31M PRN IV 09/12/17 15:23 09/13/17 01:26 Piperacillin Sod/ Tazobactam Sod 50 ml @ 100 mls/hr Q8H IV 09/12/17 17:00 09/13/17 08:37 (Pepcid) 10 mg BID PRN PO 09/12/17 17:15 (Lopressor) 50 mg BID PO 09/12/17 21:00 09/13/17 08:35 (Flomax) 0.4 mg DAILY PO 09/13/17 09:00 09/13/17 08:35 (Pill Splitter) 1 ea UNSCH PRN OTHER 09/12/17 17:30 Pharmacy Profile Note 0 ml @ 0 mls/hr UNSCH OTHER 09/12/17 17:30 (Coumadin) 2 mg DAILY@1600 PO 09/12/17 19:04 09/12/17 22:00 Vital Signs / I&O Vital Signs Date Time Temp Pulse Resp B/P (MAP) Pulse Ox O2 Delivery O2 Flow Rate FiO2 09/13/17 08:00 97.9 114 18 117/64 (81) 100 09/13/17 04:40 97.6 115 16 93/63 (73) 98 09/13/17 04:00 112 09/13/17 01:26 107 112/58 09/13/17 00:00 110 09/12/17 23:17 98.0 96 16 93/53 (66) 98 09/12/17 20:00 103 09/12/17 19:40 98.3 113 16 103/58 (73) 95 09/12/17 18:00 97.8 94 20 116/51 (72) 97 09/12/17 17:55 09/12/17 17:22 118 117/66 09/12/17 16:12 115 116/72 09/12/17 14:11 117 21 106/63 (77) 98 Room Air 09/12/17 12:36 99 Room Air 09/12/17 12:25 98.0 117 14 112/67 (82) 98 I/O 09/12/17 09/12/17 09/12/17 09/13/17 09/13/17 09/13/17 07:00 15:00 23:00 07:00 15:00 23:00 Intake Total 700 ml 240 ml Balance 700 ml 240 ml Intake Oral 240 ml IV Total 700 ml # Voids 6 # Bowel Movements 0 Physical Exam Alert Chest clear CV S1S2 irr irr. Heart rate is up Abd soft no edema Laboratory Laboratory Tests Test 09/12/17 12:39 09/12/17 13:09 09/12/17 16:50 09/12/17 18:48 White Blood Count 7.1 TH/MM3 Red Blood Count 2.94 MIL/MM3 Hemoglobin 10.9 GM/DL Hematocrit 31.1 % Mean Corpuscular Volume 105.8 FL Mean Corpuscular Hemoglobin 37.1 PG Mean Corpuscular Hemoglobin Concent 35.1 % Red Cell Distribution Width 16.0 % Platelet Count 214 TH/MM3 Mean Platelet Volume 9.3 FL Neutrophils (%) (Auto) 61.6 % Lymphocytes (%) (Auto) 23.0 % Monocytes (%) (Auto) 13.3 % Eosinophils (%) (Auto) 1.7 % Basophils (%) (Auto) 0.4 % Neutrophils # (Auto) 4.4 TH/MM3 Lymphocytes # (Auto) 1.6 TH/MM3 Monocytes # (Auto) 0.9 TH/MM3 Eosinophils # (Auto) 0.1 TH/MM3 Basophils # (Auto) 0.0 TH/MM3 CBC Comment DIFF FINAL Differential Comment Prothrombin Time 18.5 SEC Prothromb Time International Ratio 1.8 RATIO Activated Partial Thromboplast Time 36.3 SEC Blood Urea Nitrogen 25 MG/DL Creatinine 1.31 MG/DL Random Glucose 116 MG/DL Total Protein 7.1 GM/DL Albumin 2.7 GM/DL Calcium Level 8.1 MG/DL Alkaline Phosphatase 95 U/L Aspartate Amino Transf (AST/SGOT) 24 U/L Alanine Aminotransferase (ALT/SGPT) 17 U/L Total Bilirubin 1.0 MG/DL Sodium Level 135 MEQ/L Potassium Level 4.2 MEQ/L Chloride Level 99 MEQ/L Carbon Dioxide Level 24.0 MEQ/L Anion Gap 12 MEQ/L Estimat Glomerular Filtration Rate 40 ML/MIN Total Creatine Kinase 29 U/L 27 U/L Troponin I LESS THAN 0.02 NG/ML LESS THAN 0.02 NG/ML Urine Color YELLOW Urine Turbidity CLOUDY Urine pH 5.5 Urine Specific [place] 1.011 Urine Protein 30 mg/dL Urine Glucose (UA) NEG mg/dL Urine Ketones NEG mg/dL Urine Occult Blood SMALL Urine Nitrite NEG Urine Bilirubin NEG Urine Urobilinogen LESS THAN 2.0 MG/DL Urine Leukocyte Esterase LARGE Urine RBC 2 /hpf Urine WBC /hpf Urine WBC Clumps MANY Urine Bacteria MOD /hpf Microscopic Urinalysis Comment CULTURE INDICATED Lactic Acid Level 1.4 mmol/L Test 09/13/17 00:34 Blood Urea Nitrogen 24 MG/DL Creatinine 1.23 MG/DL Random Glucose 107 MG/DL Calcium Level 7.7 MG/DL Sodium Level 139 MEQ/L Potassium Level 3.8 MEQ/L Chloride Level 104 MEQ/L Carbon Dioxide Level 24.4 MEQ/L Anion Gap 11 MEQ/L Estimat Glomerular Filtration Rate 43 ML/MIN Total Creatine Kinase 25 U/L Troponin I LESS THAN 0.02 NG/ML Vitamin B12 Level 772 PG/ML Free Thyroxine 1.06 NG/DL Thyroid Stimulating Hormone 3rd Gen 4.230 uIU/ML Imaging Last 24 hours Impressions Chest X-Ray 09/12/17 1230 Signed Impressions: CONCLUSION: Negative for acute disease. Assessment and Plan Problem List: (1) Atrial fibrillation with RVR ICD Codes: I48.91 - Unspecified atrial fibrillation Plan: increase metoprolol 50 mg q8h. Dilt is is now 180 bid. May have to increase to 240 bid Erasmo Mayo MD Sep 13, 2017 09:32
--- NOTE | 2017-09-13 10:42 | HHI.PR ---
Subjective Remarks Nursing denies any deterioration since last night. Patient herself says that she feels much better in terms of her shortness of breath and palpitations and dizziness. She complains of chronic intermittent hallucinations, says this has happened since a number of deaths and social stressors in her life a couple of months ago happening all around the same time frame. Says she was placed on Risperdal in the past for this but she stopped taking it because it made her too groggy. She does not see a psychiatrist outpatient. She also asks if somebody can address/cut her toenails which she thinks she has a fungal infection. She denies burning with urination but does admit to having urinary urgency at this time, says urinary urgency is her main symptom with UTIs. Objective Vital Signs Date Time Temp Pulse Resp B/P (MAP) Pulse Ox O2 Delivery O2 Flow Rate FiO2 09/13/17 08:00 114 09/13/17 08:00 97.9 114 18 117/64 (81) 100 09/13/17 04:40 97.6 115 16 93/63 (73) 98 09/13/17 04:00 112 09/13/17 01:26 107 112/58 09/13/17 00:00 110 09/12/17 23:17 98.0 96 16 93/53 (66) 98 09/12/17 20:00 103 09/12/17 19:40 98.3 113 16 103/58 (73) 95 09/12/17 18:00 97.8 94 20 116/51 (72) 97 09/12/17 17:55 09/12/17 17:22 118 117/66 09/12/17 16:12 115 116/72 09/12/17 14:11 117 21 106/63 (77) 98 Room Air 09/12/17 12:36 99 Room Air 09/12/17 12:25 98.0 117 14 112/67 (82) 98 I/O 09/12/17 09/12/17 09/12/17 09/13/17 09/13/17 09/13/17 07:00 15:00 23:00 07:00 15:00 23:00 Intake Total 700 ml 240 ml Balance 700 ml 240 ml Intake Oral 240 ml IV Total 700 ml # Voids 6 # Bowel Movements 0 Result Diagram: 09/12/17 3149 09/13/17 0034 Objective Remarks No suprapubic tenderness to palpation Heart sounds are regular rate rhythm Unlabored breathing, clear lungs bilaterally A/P Assessment and Plan 72-year-old female with PMH of a. fib anticoagulated on Coumadin, HTN, anxiety, and schizophrenia who presents to the ER via [facility] after neighbors called 911 with concerns for patient. Patient reported to the emergency department physician that she did feel palpitations as well as dizziness therefore she went outside of her house. A. fib with RVR -Still tachycardic but improving, on amiodarone drip, continue p.o. Lopressor, cardiology is increased diltiazem dose -Echocardiogram is pending -Check free T4, check CK, check 2D echo, initial troponin negative, follow 2 UTI -Continue Zosyn started by admitting hospitalist given history of Klebsiella ESBL, ID consultation pending SARAI -Improving with IV fluids Hyponatremia, mild -Appears as though this might be chronic, patient is on sodium tablet 1 g daily - IVF with NS, monitor electrolytes. Visual hallucinations Hx of schizophrenia and anxiety -Psychiatry consult pending Diarrhea -no further reports DVT prophylaxis-Coumadin Min Moody MD Sep 13, 2017 10:42
[2017-09-13 13:28] LABS: BASOPHIL % 0.2 % (0.0-2.0); EOSINOPHIL # 0.2 TH/MM3 (0-0.4); HEMATOCRIT 27.8 % (35.0-46.0); HEMOGLOBIN 9.6 GM/DL (11.6-15.3); LYMPH % 12.2 % (9.0-44.0); MEAN CELL VOLUME 108.5 FL (80.0-100.0); MEAN CORPUSCULAR HEMOGLOBIN 37.6 PG (27.0-34.0); MEAN CORPUSCULAR HGB CONC 34.7 % (32.0-36.0); MEAN PLATELET VOLUME 9.3 FL (7.0-11.0); MONO % 11.2 % (0.0-8.0); MONOCYTE # 0.9 TH/MM3 (0-0.9); NEUT % 74.4 % (16.0-70.0); PLATELET COUNT 145 TH/MM3 (150-450); RED BLOOD COUNT 2.56 MIL/MM3 (4.00-5.30); RED CELL DISTRIBUTION WIDTH 16.3 % (11.6-17.2); WHITE BLOOD COUNT 8.1 TH/MM3 (4.0-11.0)
[2017-09-13] MEDS ORDERED: METOPROLOL TARTRATE 50 MG TAB PO SCH (14:00)
[2017-09-13] MEDS ORDERED: cefTRIAXone INJ 1,000 MG in SODIUM CHLORIDE 0.9% INJ 100 ML IV SCH (15:00)
--- NOTE | 2017-09-13 15:22 | EKG ---
Date Performed: 09/12/2017 Time Performed: 12:55:37 PTAGE: 72 years EKG: ATRIAL FIBRILLATION WITH RAPID VENTRICULAR RESPONSE MINIMAL ST DEPRESSION ABNORMAL RHYTHM E CG PREVIOUS TRACING : 07/20/2017 20.53 Since the previous tracing, no significant change noted DOCTOR: John Salazar Interpretating Date/Time 09/13/2017 15:21:10
[2017-09-13] MEDS: DILTIAZEM-CD 180 MG CAP ER PO SCH ×2 (15:48→21:44)
[2017-09-13] MEDS: WARFARIN SOD 2 MG TAB PO SCH (15:54)
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
[2017-09-13] MEDS: ESCITALOPRAM OXALATE 10 MG TAB PO SCH (18:24)
[2017-09-13] MEDS: LACTIC ACID (AMMONIUM LACTATE) 12% LOTION 225 GM BTL TOPICAL SCH (23:16)
[2017-09-13] MEDS: COLLAGENASE OINT 30 GM TUBE TOPICAL SCH (23:16)
[2017-09-13 23:20] LABS: INTERNATIONAL NORMALIZED RATIO 1.6 RATIO; PROTHROMBIN TIME - PATIENT 15.9 SEC (9.8-11.6)
[2017-09-14] VITALS (8 sets, daily range): BP systolic 104–127; BP diastolic 61–82; PULSE 80–116; RESP 18–20; TEMP 97.3–97.9; O2SAT 96–99
[2017-09-14 03:16] LABS: BICARBONATE 20.9 MEQ/L (21.0-32.0); CALCIUM 7.5 MG/DL (8.5-10.1); CREATININE 0.97 MG/DL (0.50-1.00); MAGNESIUM 1.6 MG/DL (1.5-2.5)
[2017-09-14 07:49] LABS: INTERNATIONAL NORMALIZED RATIO 1.7 RATIO; PROTHROMBIN TIME - PATIENT 16.7 SEC (9.8-11.6)
--- NOTE | 2017-09-14 08:27 | PD.CARD.PN ---
Subjective Subjective Remarks c/o hallucinations still. no other complaints Objective Medications Current Medications Medications (Trade) Dose Ordered Sig/Karolina Route Start Time Stop Time Status Last Admin Sodium Chloride 1,000 ml @ 100 mls/hr Q10H IV 09/12/17 14:45 09/13/17 23:16 (NS Flush) 2 ml UNSCH PRN IV FLUSH 09/12/17 15:15 (NS Flush) 2 ml BID IV FLUSH 09/12/17 21:00 09/13/17 21:45 (Pepcid) 10 mg BID PRN PO 09/12/17 17:15 (Flomax) 0.4 mg DAILY PO 09/13/17 09:00 09/13/17 08:35 (Pill Splitter) 1 ea UNSCH PRN OTHER 09/12/17 17:30 Pharmacy Profile Note 0 ml @ 0 mls/hr UNSCH OTHER 09/12/17 17:30 (Coumadin) 2 mg DAILY@1600 PO 09/12/17 19:04 09/13/17 15:54 (Cardizem Cd) 180 mg BID PO 09/13/17 15:15 09/13/17 21:44 (Lopressor) 50 mg BID PO 09/13/17 21:00 09/13/17 21:44 (Santyl Oint) 1 applic DAILY TOPICAL 09/13/17 17:30 09/13/17 23:16 (Lac-Hydrin 12% Lotion) 1 applic BID TOPICAL 09/13/17 21:00 09/13/17 23:16 (Lexapro) 10 mg DAILY PO 09/13/17 18:00 09/13/17 18:24 Vital Signs / I&O Vital Signs Date Time Temp Pulse Resp B/P (MAP) Pulse Ox O2 Delivery O2 Flow Rate FiO2 09/14/17 06:00 97.9 104 18 123/72 (89) 96 09/14/17 04:00 116 09/14/17 00:00 97.8 102 18 104/69 (81) 96 09/13/17 20:15 101 108/58 09/13/17 20:00 98.0 101 18 108/58 (75) 97 09/13/17 16:30 116 09/13/17 16:00 99.1 115 18 116/99 (105) 100 09/13/17 15:52 115 116/99 6/2/18 14:00 115 09/13/17 12:00 97.9 114 18 115/58 (77) 100 I/O 09/13/17 09/13/17 09/13/17 09/14/17 09/14/17 09/14/17 07:00 15:00 23:00 07:00 15:00 23:00 Intake Total 240 ml 565 ml 222 ml Balance 240 ml 565 ml 222 ml Intake Oral 240 ml 480 ml 222 ml IV Total 85 ml # Voids 6 4 2 # Bowel Movements 0 0 Physical Exam Alert, pleasant, NAD Chest clear CV S1S2 irr irr. Heart rate is up - 110 Abd soft no edema Laboratory Laboratory Tests Test 09/13/17 12:41 09/13/17 16:15 09/13/17 22:30 09/14/17 02:30 White Blood Count 8.1 TH/MM3 Red Blood Count 2.56 MIL/MM3 Hemoglobin 9.6 GM/DL Hematocrit 27.8 % Mean Corpuscular Volume 108.5 FL Mean Corpuscular Hemoglobin 37.6 PG Mean Corpuscular Hemoglobin Concent 34.7 % Red Cell Distribution Width 16.3 % Platelet Count 145 TH/MM3 Mean Platelet Volume 9.3 FL Neutrophils (%) (Auto) 74.4 % Lymphocytes (%) (Auto) 12.2 % Monocytes (%) (Auto) 11.2 % Eosinophils (%) (Auto) 2.0 % Basophils (%) (Auto) 0.2 % Neutrophils # (Auto) 6.0 TH/MM3 Lymphocytes # (Auto) 1.0 TH/MM3 Monocytes # (Auto) 0.9 TH/MM3 Eosinophils # (Auto) 0.2 TH/MM3 Basophils # (Auto) 0.0 TH/MM3 CBC Comment DIFF FINAL Differential Comment Prothrombin Time 15.9 SEC Prothromb Time International Ratio 1.6 RATIO Blood Urea Nitrogen 15 MG/DL Creatinine 0.97 MG/DL Random Glucose 153 MG/DL Calcium Level 7.5 MG/DL Magnesium Level 1.6 MG/DL Sodium Level 137 MEQ/L Potassium Level 3.9 MEQ/L Chloride Level 106 MEQ/L Carbon Dioxide Level 20.9 MEQ/L Anion Gap 10 MEQ/L Estimat Glomerular Filtration Rate 57 ML/MIN Test 09/14/17 07:10 Prothrombin Time 16.7 SEC Prothromb Time International Ratio 1.7 RATIO Assessment and Plan Problem List: (1) Atrial fibrillation with RVR ICD Codes: I48.91 - Unspecified atrial fibrillation Plan: Increase Diltiazem t0 240mg bid Erasmo Mayo MD Sep 14, 2017 08:27
[2017-09-14] MEDS: SODIUM CHLORIDE 0.9% FLUSH 10 ML FLUSH IV FLUSH SCH ×2 (09:00→21:16)
[2017-09-14] MEDS: DILTIAZEM-CD 240 MG CAP ER PO SCH ×2 (10:26→21:15)
[2017-09-14] MEDS: ESCITALOPRAM OXALATE 10 MG TAB PO SCH (10:26)
[2017-09-14] MEDS: TAMSULOSIN HCL 0.4 MG CAP PO SCH (10:27)
[2017-09-14] MEDS: METOPROLOL TARTRATE 50 MG TAB PO SCH ×2 (10:27→21:15)
[2017-09-14] MEDS: LACTIC ACID (AMMONIUM LACTATE) 12% LOTION 225 GM BTL TOPICAL SCH ×2 (10:29→21:16)
[2017-09-14] MEDS: COLLAGENASE OINT 30 GM TUBE TOPICAL SCH (10:29)
[2017-09-14] MEDS: SODIUM CHLOR 0.9% 1000 ML INJ 1,000 ML IV SCH (11:37)
--- NOTE | 2017-09-14 13:44 | HHI.PR ---
Subjective Remarks Nursing denies any deterioration since last night. Says she feels better this morning. Does report still having hallucinations of people since being in her room, denies any homicidal or suicidal thoughts or voices. Objective Vital Signs Date Time Temp Pulse Resp B/P (MAP) Pulse Ox O2 Delivery O2 Flow Rate FiO2 09/14/17 12:00 97.3 110 20 121/82 (95) 99 09/14/17 08:00 97.7 115 20 127/66 (86) 97 09/14/17 06:00 97.9 104 18 123/72 (89) 96 09/14/17 04:00 116 09/14/17 00:00 97.8 102 18 104/69 (81) 96 09/13/17 20:15 101 108/58 09/13/17 20:00 98.0 101 18 108/58 (75) 97 09/13/17 16:30 116 09/13/17 16:00 99.1 115 18 116/99 (105) 100 09/13/17 15:52 115 116/99 09/13/17 14:00 115 I/O 09/13/17 09/13/17 09/13/17 09/14/17 09/14/17 09/14/17 07:00 15:00 23:00 07:00 15:00 23:00 Intake Total 240 ml 565 ml 222 ml Balance 240 ml 565 ml 222 ml Intake Oral 240 ml 480 ml 222 ml IV Total 85 ml # Voids 6 4 2 # Bowel Movements 0 0 Result Diagram: 09/13/17 1241 09/14/17 0230 Objective Remarks No suprapubic tenderness to palpation Heart sounds are regular rate rhythm Unlabored breathing, clear lungs bilaterally A/P Assessment and Plan 72-year-old female with PMH of a. fib anticoagulated on Coumadin, HTN, anxiety, and schizophrenia who presents to the ER via [facility] after neighbors called 911 with concerns for patient. Patient reported to the emergency department physician that she did feel palpitations as well as dizziness therefore she went outside of her house. A. fib with RVR -much improved, jefe sanford'd by cards, continue p.o. Lopressor and diltiazem -Echocardiogram is still pending MDR klebsiella + strep, UTI -Contact microbiology, says sensitivities will not return until tomorrow, ID following, currently off antibiotics; repeat UA pending SARAI -Improving with IV fluids Hyponatremia, mild -resolved, stopping IVFs, will recheck bmp in am Visual hallucinations Hx of schizophrenia and anxiety -started on Lexapro per psych, appreciate input Diarrhea -no further reports DVT prophylaxis-Coumadin Min Moody MD Sep 14, 2017 13:44
[2017-09-14] MEDS ORDERED: ACETAMINOPHEN 500 MG CPLT PO ONE (13:45)
[2017-09-14] MEDS ORDERED: IBUPROFEN 400 MG TAB PO ONE (13:45)
[2017-09-14] MEDS ORDERED: WARFARIN SOD 1 MG TAB PO ONE (16:00)
[2017-09-14] MEDS: WARFARIN SOD 2 MG TAB PO SCH (18:12)
[2017-09-15] VITALS (7 sets, daily range): BP systolic 95–125; BP diastolic 59–82; PULSE 55–80; RESP 18; TEMP 97.2–97.5; O2SAT 97–98
[2017-09-15] MEDS ORDERED: HALOPERIDOL LACTATE 5 MG/ML AMP IM ONE (01:45)
[2017-09-15 08:50] LABS: INTERNATIONAL NORMALIZED RATIO 1.6 RATIO; PROTHROMBIN TIME - PATIENT 15.9 SEC (9.8-11.6)
[2017-09-15] MEDS: LACTIC ACID (AMMONIUM LACTATE) 12% LOTION 225 GM BTL TOPICAL SCH (09:00)
[2017-09-15] MEDS: COLLAGENASE OINT 30 GM TUBE TOPICAL SCH (09:00)
[2017-09-15] MEDS: SODIUM CHLORIDE 0.9% FLUSH 10 ML FLUSH IV FLUSH SCH (09:00)
[2017-09-15 09:09] LABS: BICARBONATE 19.7 MEQ/L (21.0-32.0); CALCIUM 8.1 MG/DL (8.5-10.1); CREATININE 0.92 MG/DL (0.50-1.00)
[2017-09-15] MEDS: METOPROLOL TARTRATE 50 MG TAB PO SCH (09:50)
[2017-09-15] MEDS: TAMSULOSIN HCL 0.4 MG CAP PO SCH (09:50)
[2017-09-15] MEDS: DILTIAZEM-CD 240 MG CAP ER PO SCH (09:50)
[2017-09-15] MEDS: ESCITALOPRAM OXALATE 10 MG TAB PO SCH (09:50)
[2017-09-15] MEDS ORDERED: DILT240C44 PO (10:46)
[2017-09-15] MEDS ORDERED: ESCI10TA PO (10:46)
--- NOTE | 2017-09-15 10:47 | HHI.DCPOC ---
Discharge Care Plan Diagnosis: (1) Atrial fibrillation with RVR (2) Major depressive disorder with psychotic features (3) Hallucination (4) UTI (urinary tract infection) Goals to Promote Your Health * To prevent worsening of your condition and complications * To maintain your health at the optimal level Directions to Meet Your Goals Take your medications as prescribed Follow your dietary instruction Follow activity as directed Keep your appointments as scheduled Take your immunizations and boosters as scheduled If your symptoms worsen call your PCP, if no PCP go to Urgent Care Center or Emergency Room Smoking is Dangerous to Your Health. Avoid second hand smoke Call the 24-hour hour crisis hotline for domestic abuse at Min Moody MD Sep 15, 2017 10:47
--- NOTE | 2017-09-15 10:49 | HHI.FF ---
Face to Face Verification Diagnosis: (1) UTI (urinary tract infection) (2) Major depressive disorder with psychotic features (3) Atrial fibrillation with RVR (4) ESBL (extended spectrum beta-lactamase) producing bacteria infection Home Health Nursing Order: Medical education Signs/symptoms of disease process Medication education-adverse effect Nursing assessment with vital signs I have seen patient Gely Kang on 09/15/17. My clinical findings support the need for the requested home health care services because: Med compliance is questionable Injectable med education/admin I certify that my clinical findings support that this patient is homebound because: Need for psychosocial assistance Min Moody MD Sep 15, 2017 10:49
[2017-09-15] MEDS ORDERED: FURO20TA PO (10:51)
[2017-09-15] MEDS ORDERED: LISI-519 PO (10:52)
[2017-09-15] MEDS ORDERED: LISINOPRIL 5 MG TAB PO ONE (11:00)
[2017-09-15] MEDS ORDERED: WARFARIN SOD 2 MG TAB PO ONE (16:00)
--- NOTE | 2017-09-15 17:37 | HHI.IDPN ---
Subjective Subjective Remarks Ms. Kang is a 72-year-old female with past medical history of A. fib anticoagulated on Coumadin, hypertension, anxiety and schizophrenia with active hallucinations. With this background patient presents to the emergency room via [facility] after her neighbors called 911 with concerns for the patient. Patient states that for the last several days she has been hallucinating and seeing people at home. She tells me she saw a Dutch person in her room with the right cord and a black male sat next to her. She reportedly spoke to them and asked them to leave. She became worried about the people as they were going to her turns when she stepped out on the porch is our neighbors and she asked him to call 911. Patient reports that her and brother in 2016 and another brother had a leg amputation has been a lot of stressors due to which she thinks her symptoms have exacerbated. She reports that she does not leave her house in the last 1.5 years and only go to the doctor's offices. She reports that her groceries are ordered online and there is someone that comes to her home to help her around the house. Patient reports history of frequent UTIs. She denies any fever or chills. Her only concern for the day was the fungal infection on her nails. At the time of my evaluation patient is on the regular floor sitting up in bed alert oriented 3 not actively hallucinating and able to converse appropriately. Patient was actually able to provide me most of her history. Infectious diseases consulted for evaluation and management of UTI given her history of ESBL UTI in the past. Overnight events reviewed No fevers No rash No diarrhea Antibiotics none Lines Lines ok Past Medical History Past Medical History A. fib anticoagulated on Coumadin Generalized anxiety disorder Anemia Hypertension Schizophrenia Past Surgical History Hysterectomy Double lumpectomy Radical mastectomy Radical mastectomy Disc surgery Left clavicle surgery Allergies: Coded Allergies: No Known Allergies (Unverified , 09/12/17) Objective . Vital Signs Date Time Temp Pulse Resp B/P (MAP) Pulse Ox O2 Delivery O2 Flow Rate FiO2 09/15/17 16:06 97.5 55 18 117/72 (87) 97 09/15/17 12:06 97.4 74 18 95/59 (71) 97 09/15/17 08:06 97.5 79 18 114/82 (93) 97 09/15/17 04:00 97.2 74 18 102/60 (74) 98 09/15/17 00:00 97.4 80 18 125/64 (84) 98 09/14/17 20:00 97.8 100 18 122/69 (86) 98 . Laboratory Tests Test 09/14/17 02:30 09/15/17 06:56 Blood Urea Nitrogen 15 MG/DL 13 MG/DL Creatinine 0.97 MG/DL 0.92 MG/DL Random Glucose 153 MG/DL 107 MG/DL Calcium Level 7.5 MG/DL 8.1 MG/DL Magnesium Level 1.6 MG/DL Sodium Level 137 MEQ/L 139 MEQ/L Potassium Level 3.9 MEQ/L 3.8 MEQ/L Chloride Level 106 MEQ/L 108 MEQ/L Carbon Dioxide Level 20.9 MEQ/L 19.7 MEQ/L Anion Gap 10 MEQ/L 11 MEQ/L Estimat Glomerular Filtration Rate 57 ML/MIN 60 ML/MIN Microbiology Date/Time Source Procedure Growth Status 09/13/17 18:15 Urine Catheterized Urine Urine Culture - Final 10-50,000 CFU/ML MIXED ERIKA... Complete Imaging Last Impressions Chest X-Ray 09/12/17 1230 Signed Impressions: CONCLUSION: Negative for acute disease. Physical Exam Physical Exam GENERAL: This is a well-nourished, well-developed patient, in no apparent distress. SKIN: No rashes, ecchymoses or lesions. Cool and dry. HEAD: Atraumatic. Normocephalic. No temporal or scalp tenderness. EYES: Pupils equal round and reactive. Extraocular motions intact. No scleral icterus. No injection or drainage. ENT: Nose without bleeding, purulent drainage or septal hematoma. Throat without erythema, tonsillar hypertrophy or exudate. Uvula midline. Airway patent. NECK: Trachea midline. Supple, nontender, no meningeal signs. CARDIOVASCULAR: Heart sounds audible. RESPIRATORY: Clear to auscultation. Breath sounds equal bilaterally. No wheezes , rales, or rhonchi. GASTROINTESTINAL: Abdomen soft, non-tender, nondistended. MUSCULOSKELETAL: Left thigh inner aspect there was a superficial ulceration noted with minimal if any surrounding erythema and an unclean base. NEUROLOGICAL: Awake and alert. Normal speech. Psych cooperative IV line sites with no evidence of infection. Assessment & Plan Remarks Possible UTI GNR and GPC in urine clean cath ? contaminant. H/o ESBL E.coli recurrent UTIs Afib Hallucinations, in setting of Schizophrenia affecting her functional life (pt does not step out of home, orders groceries online) Recs No antibiotics needed on discharge. Ok to DC from ID standpoint. Will sign off please call back if any change in clinical condition or questions. Sulma Gay MD Sep 15, 2017 17:37
[2017-09-15] MEDS: WARFARIN SOD 2 MG TAB PO SCH (17:44)
--- NOTE | 2017-09-15 18:36 | HHI.DS ---
Discharge Summary Admission Date Sep 12, 2017 at 15:35 Discharge Date: Sep 15, 2017 Admitting Diagnosis afib RVR (1) Hallucination ICD Code: R44.3 - Hallucinations, unspecified (2) Atrial fibrillation with RVR ICD Code: I48.91 - Unspecified atrial fibrillation (3) SARAI (acute kidney injury) ICD Code: N17.9 - Acute kidney failure, unspecified (4) UTI (urinary tract infection) ICD Code: N39.0 - Urinary tract infection, site not specified Procedures none Brief History - From Admission Written by Payton Thakkar, acting as scribe for Dr. Damon on 09/12/17 at 15:25. 72-year-old female with PMH of a. fib anticoagulated on Coumadin, HTN, anxiety, and schizophrenia who presents to the ER via [facility] after neighbors called 911 with concerns for the patient. Patient states that for the past several day she has been seeing people in home. She tells me she saw a kinyarwanda person with a white coat and a black male who "just sat there". She reports that she did talk to them and asked them to leave, but they did not. She became worried about the people saying they were going to hurt her, she was scared so she stepped out to her porch and when she saw her neighbors she asked them to call 911. Patient also reports that she has been under quite a bit of stress due to a combination of things. She tells me that her and brother passed in 2016 and her other brother had leg amputation. She reports not leaving her house for 1.5 year only to go to her doctors office. She denies any suicidal or homicidal ideations at the moment. She follows up with [facility] for primary care. She does not follow up with a hearing therapy director. Patient also complains of diarrhea last night, none this morning or today. She denies any nausea, vomiting, shortness of breath, cough, chest pain, or heart palpitations. She denies any dysuria, or foul urine smell although does report some abdominal pain and incontinence as well as frequency. Patient states that she has had frequent urinary tract infections this year. She also tells me that she was treated about a week and a half ago for a cough with phlegm for which she was treated with cough medicine, her symptoms resolved. Patient is fearful of what will be done to her house when she returns by these people that she reports seeing. She denies any psychiatric history or ever seeing a psychiatrist. CBC/BMP: 09/13/17 1241 09/15/17 0656 Significant Findings Laboratory Tests Test 09/12/17 18:48 09/13/17 00:34 09/13/17 12:41 09/13/17 22:30 Troponin I LESS THAN 0.02 NG/ML LESS THAN 0.02 NG/ML Blood Urea Nitrogen 24 MG/DL (7-18) Creatinine 1.23 MG/DL (0.50-1.00) Random Glucose 107 MG/DL (74-106) Calcium Level 7.7 MG/DL (8.5-10.1) Estimat Glomerular Filtration Rate 43 ML/MIN (>89) Total Creatine Kinase 25 U/L (26-192) Thyroid Stimulating Hormone 3rd Gen 4.230 uIU/ML (0.358-3.740) Red Blood Count 2.56 MIL/MM3 (4.00-5.30) Hemoglobin 9.6 GM/DL (11.6-15.3) Hematocrit 27.8 % (35.0-46.0) Mean Corpuscular Volume 108.5 FL (80.0-100.0) Mean Corpuscular Hemoglobin 37.6 PG (27.0-34.0) Platelet Count 145 TH/MM3 (150-450) Neutrophils (%) (Auto) 74.4 % (16.0-70.0) Monocytes (%) (Auto) 11.2 % (0.0-8.0) Prothrombin Time 15.9 SEC (9.8-11.6) Test 09/14/17 02:30 09/14/17 07:10 09/15/17 06:56 Random Glucose 153 MG/DL (74-106) 107 MG/DL (74-106) Calcium Level 7.5 MG/DL (8.5-10.1) 8.1 MG/DL (8.5-10.1) Carbon Dioxide Level 20.9 MEQ/L (21.0-32.0) 19.7 MEQ/L (21.0-32.0) Estimat Glomerular Filtration Rate 57 ML/MIN (>89) 60 ML/MIN (>89) Prothrombin Time 16.7 SEC (9.8-11.6) 15.9 SEC (9.8-11.6) Chloride Level 108 MEQ/L (98-107) PE at Discharge lying in bed, NAD, unlabored breathing Hospital Course Pt was admitted, started on amiodarone initially. cardiology helped stabilize rate with lopressor and cardizem, dc'd off of amiodarone. ID consulted for possible MDR UTI, concluded it was an not an active acute infx that warrant abx. Psychiatry was consulted for the pt having intermittent hallucinations 2/2 depression w/ psychotic features of which she was very cognizant of them, clear for dc from psych standpoint as well. Pt has met maximal benefit from hospitalization and is clinically stable for discharge.. Pt Condition on Discharge: Stable Discharge Disposition: Disch w/ Home Health Serv Discharge Instructions DIET: Follow Instructions for: Heart Healthy Diet Activities you can perform: Weight Bearing as Min Arreola MD Sep 15, 2017 18:36
[2017-09-16] MEDS ORDERED: LISINOPRIL 5 MG TAB PO SCH (09:00)
== END 2017-09-15 19:06 | disposition home health service (06) | DRG 309 ==
LOC: NEPE 12:14 → NEDA 15:35 → N04A 18:15
PROVIDERS: ADMIT Hospitalist; ATTEND Hospitalist
DX: I48.91 Unspecified atrial fibrillation (principal); N17.9 Acute kidney failure, unspecified; F32.3 Major depressive disorder, single episode, severe with psychotic features; N39.0 Urinary tract infection, site not specified; B96.1 Klebsiella pneumoniae [K. pneumoniae] as the cause of diseases classified elsewhere; E87.1 Hypo-osmolality and hyponatremia; D53.9 Nutritional anemia, unspecified; I10 Essential (primary) hypertension; M19.90 Unspecified osteoarthritis, unspecified site; B95.2 Enterococcus as the cause of diseases classified elsewhere; F41.9 Anxiety disorder, unspecified; G47.00 Insomnia, unspecified; F41.1 Generalized anxiety disorder; R79.1 Abnormal coagulation profile; G47.9 Sleep disorder, unspecified; E86.0 Dehydration; K21.9 Gastro-esophageal reflux disease without esophagitis; R19.7 Diarrhea, unspecified; R00.0 Tachycardia, unspecified; Z16.24 Resistance to multiple antibiotics; Z16.19 Resistance to other specified beta lactam antibiotics; Z85.3 Personal history of malignant neoplasm of breast; Z82.49 Family history of ischemic heart disease and other diseases of the circulatory system; Z90.13 Acquired absence of bilateral breasts and nipples; Z87.440 Personal history of urinary (tract) infections; Z79.01 Long term (current) use of anticoagulants; Z79.899 Other long term (current) drug therapy; Z90.710 Acquired absence of both cervix and uterus
CPT/HCPCS: 71045; 80048; 80053; 81001; 82550; 82607; 83605; 83735; 84439; 84443; 84484; 85025; 85610; 85730; 87077; 87086; 87185; 87186; 93005; J0282; J0696; J1630; J2543; J7030; J7040; J7050